=== PATIENT | male | born 1960 | race Caucasian/White ===

== ENCOUNTER 2017-05-08 15:36 | Outpatient (POV) | payer BC, SELFPAY | END 2017-05-08 16:43 | disposition home or self-care (01) | PROVIDERS: Visit Provider Podiatrist ==

== ENCOUNTER → 2017-05-09 | Outpatient (POV) | payer BC, SELFPAY | PROVIDERS: Visit Provider Podiatrist | DX: I73.9 Peripheral vascular disease, unspecified (principal); M25.571 Pain in right ankle and joints of right foot; E11.8 Type 2 diabetes mellitus with unspecified complications; L89.519 Pressure ulcer of right ankle, unspecified stage | CPT/HCPCS: 99213; 11042 ==

== ENCOUNTER → 2018-04-06 14:15 | Outpatient (CLI) | payer BC, SELFPAY ==
--- NOTE | 2018-04-06 14:19 | US_ITS ---
US scrotum Ordering Physician: Margy Ang MD Patient Age: 57 years: Male HISTORY: ITS.REASON: ACQUIRED HYDROCELE . Swelling enlargement right hemiscrotum more so than left TECHNIQUE: Ultrasound both right and left testicle & hemiscrotum MW COMPARISON :None relevant FINDINGS The Right and Left Testicle appear normal, with normal flow and no mass at either testicle Right testicle measuring 3.8 seem in length of 2.45 cm x 2.3 cm. The left testicle measuring 4.1 cm length x 3.25 cm x 1.9 cm. Abnormal Right Epididymis.-Abnormal diffusely enlarged with most prominent enlargement at head and tail. Enlarged prominent head epididymis is enlarged measuring over 2 cm cm length x1.8 x 1.5 cm. inhomogeneous echogenicity.. Superior to this there even appears to be abnormal signal continuing through the tubule structure tracking superior to the epididymis, possibly distended spermatic cord. . The body of epididymis is slightly enlarged .. . . prominent focal area of enlargement also seen at enlarged tail of epididymis.. Associated focal 1.6 cm round area with mixed echogenicity mainly solid/semisolid character. I suspect this may reflect an old area of epididymitis or possibly old abscess residual. Understand the patient is not particularly tender here currently. Some form of a old infected Spermatoceles also consideration but less common towards tail of epididymis Left Epididymis The head of the left abdomen epididymis is mildly enlarged as well measuring 1.7 cm x 1.35 cm. Slightly inhomogeneous. The left epididymis body is slightly enlarged the inhomogeneous. Tail unremarkable. Only scant free fluid throughout either testicle. No significant hydrocele IMPRESSION: ...... 1.The Right and Left testicle themselves appear normal 2. findings are most suggestive of Chronic Epididymitis Most Severe & Prominent on Right, more so than left. Right epididymis-Inhomogeneous prominent enlargement head Right Epididymis,. With Enlargement & round focal abnormality also at tail of right epididymis. Less pronounced mildly enlargement body right epididymis.-Suspect appearance reflect recurrent & chronic epididymitis features here. Relative Minimal discomfort or pain currently- per technologist noted; thus may mainly be chronic. . Left epididymis is inhomogeneous & mildly enlarged throughout- most notable enlargement at head left epididymis. Again likely reflecting chronic epididymitis
== END ==
PROVIDERS: PCP Family Medicine; Visit Provider Family Medicine
DX: N43.3 Hydrocele, unspecified (principal)
CPT/HCPCS: 76870

== ENCOUNTER → 2018-09-03 06:05 | Outpatient (CLI) | payer BC, SELFPAY ==
--- NOTE | 2018-09-03 06:09 | CA_ITS ---
PROCEDURE: 2-D M-mode and color Doppler study INDICATIONS FOR THE TEST: Chest painX COPD Heart Murmur Tobacco Smoking PalpitationsX Fatigue Syncope EdemaX HypertensionXDiabetes MellitusX Rheumatic Fever SOB SOUSA Obesity HyperlipidemiaX Family History HD Additional History CAD,CABG,PP,CHRONIC FIB TDS SECONDARY TO RECONSTRUCTION OF STERNUM POST CABG PATIENT INFORMATION HEIGHT: 69 WEIGHT:254 GENDER: Male B/P:148/71 2-D/M-MODE INTERPRETATION: 2-D MEASUREMENTS OBSERVED VALUES IN CMS Right Ventricular Dimension (RVDd) 4.0 Interventricular Septum (Thickness)(IVsd) 1.4 Left Ventricular Internal Dimensions(LVIDd) 3.8 Left Ventricular Posterior Wall (Thickness)(LVPWd) 1.2 Aortic Root 2.8 Aortic Cusp Separation 2.2 Left Atrial Dimensions (LAD) 3.9 2D 1. Left atrium is mildly enlarged, left ventricle is normal size, moderate concentric left ventricular hypertrophy, visually estimated ejection fraction 55% with no regional wall motion abnormality, there is abnormal septal motion. 2. The right atrium and right ventricle are mildly enlarged with normal contractility. There is a pacemaker lead seen in the right ventricle. 3. The aortic valve is thickened and calcified leaflet continue to display mobility. 4. The mitral and tricuspid valve leaflets are minimally thickened. 5. The pulmonic valve is poorly visualized. 6. No significant pericardial effusion noted. DOPPLER INTERROGATION: Doppler interrogation of the aortic, mitral and tricuspid valvular presence of mild mitral and tricuspid regurgitation, tricuspid regurgitation jet velocity is inadequate for calculation of the right ventricular systolic pressure, diastolic parameters are inconclusive. Inferior vena cava is not well visualized CONCLUSION: 1. Mildly enlarged left atrium, normal left ventricular size, moderate concentric left ventricular hypertrophy, visually estimated ejection fraction 55% with no regional wall motion abnormality, there is abnormal septal motion. Diastolic parameters are inconclusive. 2. Mildly enlarged right ventricle with normal contractility. 3. Mild mitral and tricuspid regurgitation 4. No significant pericardial effusion noted.
--- NOTE | 2018-09-03 06:20 | NM_ITS ---
CARDIOLITE SPECT MYOCARDIAL PERFUSION LEXISCAN, REST AND STRESS: History: Coronary artery disease, bypass surgery, obesity, hypertension, diabetes, hyperlipidemia, family history and fatigue Procedure: Patient received 0.4 mg of intravenous Lexiscan, resting heart rate was 70 bpm resting blood pressure 160/87, with Lexiscan maximum heart rate achieved was 74% of the maximum predicted heart rate and a blood pressure was 165/85. With Lexiscan patient complained of shortness of breath Electrocardiogram: Resting electrocardiogram showed the electronically paced rhythm, premature ventricular complex, underlying rhythm is atrial fibrillation. With Lexiscan there is less than 1.[address] segment depression noted from the baseline EKG. The EKG portion of the Lexiscan Myoview is nondiagnostic. Cardiac stress and resting SPECT images: Cardiac stress and resting SPECT images were obtained using technetium 99 Myoview 31.7 mCi stress and 10.7 mCi at rest. Gated SPECT further analysis of segmental wall motion and calculation of the ejection fraction also done. Cardiac stress and resting SPECT images show uniform myocardial activity without segmental perfusion abnormality, computer derived ejection fraction is 54% with no regional wall motion abnormality, right ventricle is mildly enlarged with normal contractility. Conclusion: 1. The EKG portion of the Lexiscan Myoview is nondiagnostic. 2. No Scintigraphic evidence of reversible ischemia, computer derived ejection fraction 54% with no regional wall motion abnormality, right ventricle is mildly enlarged with normal contractility. 3. Normal Lexiscan Myoview study.
--- NOTE | 2018-09-03 09:28 | HMH.ITSHM ---
Current Home Medications as stated by this patient Cal Bains or traveling representative. []ALLOPURINOL AMLODIPINE ATORVASTATIN CARVEDILOL LAVIX CAMBIVENT FENOFIBRATE GABAPENTIN HYDROCODONE LISINOPRIL NITRO TRIAMTERENE HCTZ INSULIN XARELTO ASPIRIN
== END ==
PROVIDERS: PCP Family Medicine; Visit Provider Internal Medicine
DX: I25.10 Atherosclerotic heart disease of native coronary artery without angina pectoris (principal); E11.9 Type 2 diabetes mellitus without complications; E78.5 Hyperlipidemia, unspecified; I11.9 Hypertensive heart disease without heart failure; I48.91 Unspecified atrial fibrillation; Z95.0 Presence of cardiac pacemaker; Z95.1 Presence of aortocoronary bypass graft; Z95.5 Presence of coronary angioplasty implant and graft
CPT/HCPCS: 78452; 93017; 93306; A9502; J2785

== ENCOUNTER 2018-09-04 12:39 | Inpatient (IN) ==
[2018-09-04 15:06] LABS: Basophils % 0.5 % (0.1-2.0); Eosinophils # 0.1 K/mm3 (0.0-0.4); Eosinophils % 0.8 % (0.1-12.0); Hematocrit 45.7 % (42.0-52.0); Hemoglobin 14.6 g/dL (14.1-18.0); Lymphocytes # 1.3 K/mm3 (0.7-4.5); Lymphocytes % 16.1 % (10-50); Mean Corpuscular Hemoglobin 31.4 pg (27.0-31.2); Mean Corpuscular Volume 97.9 fl (80-94); Mean Platelet Volume 7.4 fl (7.4-10.4); Monocytes # 0.5 K/mm3 (0.1-1.0); Monocytes % 5.6 % (1.7-9.3); Neutrophils # 6.4 K/mm3 (1.8-7.8); Platelet Count 187 K/mm3 (142-424); Red Blood Count 4.67 M/mm3 (4.60-6.20); White Blood Count 8.3 K/mm3 (4.8-10.8)
[2018-09-04 15:15] LABS: Albumin Level 3.3 gm/dL (3.4-5.0); Albumin/Globulin Ratio 0.8 (1.1-1.8); Anion Gap 14.3 mEq/L (5-15); Bilirubin,Total 0.5 mg/dL (0.2-1.0); Calcium 8.9 mg/dL (8.5-10.1); Potassium 4.3 mmoL/L (3.5-5.1); Total Protein,Serum 7.3 gm/dL (6.4-8.2)
--- NOTE | 2018-09-04 15:20 | Progress Note ---
Internal Medicine - PN: Subj *Date: 09/04/18 *Time: 15:17 Interval history: See H&P from [facility]. Admitted with abdominal pain, distention, diarrhea. Exam Vital signs and Labs for Last 24 Hours: Temp Pulse Resp BP Pulse Ox 97.7 F 67 18 143/68 H 96 09/04/18 14:21 09/04/18 14:21 09/04/18 14:21 09/04/18 14:21 09/04/18 14:21 Laboratory Results - last 24 hr 09/04/18 14:30: WBC 8.3, RBC 4.67, Hgb 14.6, Hct 45.7, MCV 97.9 H, MCH 31.4 H, MCHC 32.0, RDW 15.0, Plt Count 187, MPV 7.4, Neut % (Auto) 77.0, Lymph % (Auto) 16.1, [place] % (Auto) 5.6, Eos % (Auto) 0.8, Baso % (Auto) 0.5, Neut # (Auto) 6.4, Lymph # (Auto) 1.3, [place] # (Auto) 0.5, Eos # (Auto) 0.1, Baso # (Auto) 0.0 09/04/18 14:30: Sodium 140, Potassium 4.3, Chloride 104, Carbon Dioxide 26, Anion Gap 14.3, BUN 23 H, Creatinine 1.49 H, Estimated Creat Clear 88, Estimated GFR 48 L, Est GFR ( Amer) 58 L, Glucose 319 H, Calcium 8.9, Total Bilirubin 0.5, AST 27, ALT 37, Alkaline Phosphatase 84, Total Protein 7.3, Albumin 3.3 L, Globulin 4.0 H, Albumin/Globulin Ratio 0.8 L I & O for Last 24 hours: Intake & Output 09/02/18 09/03/18 09/04/18 09/05/18 11:59 11:59 11:59 11:59 Weight 259 lb 6 oz - Routine Chest/Breast/Axilla Exam Chest wall: Present: pacemaker Breast: Present: scars - *Routine Respiratory Exam Present: decreased breath sounds, rhonchi - *Routine Cardiovascular Exam Present: RRR (pacemaker) - *Routine Extremities Exam Present: edema (trace) - *Routine Neurological Exam Present: alert, oriented X3 Assessment and Plan (1) Abdominal pain Current visit: Yes Status: Acute Category: Medical Code(s): R10.9 - Unspecified abdominal pain (2) Diarrhea Current visit: Yes Status: Acute Category: Medical Code(s): R19.7 - Diarrhea, unspecified (3) Colitis Current visit: Yes Status: Acute Category: Medical Code(s): K52.9 - Noninfective gastroenteritis and colitis, unspecified (4) Coronary arteriosclerosis Current visit: No Status: Chronic Category: Medical Code(s): I25.10 - Atherosclerotic heart disease of [place] coronary artery without angina pectoris (5) Diabetes mellitus Current visit: No Status: Chronic Qualifiers: Category: Medical Code(s): E11.9 - Type 2 diabetes mellitus without complications (6) Hyperlipidemia Current visit: No Status: Chronic Qualifiers: Category: Medical Code(s): E78.5 - Hyperlipidemia, unspecified (7) Hypertensive heart disease without heart failure Current visit: No Status: Chronic Category: Medical Code(s): I11.9 - Hypertensive heart disease without heart failure (8) Stented coronary artery Current visit: No Status: Chronic Category: Surgical Code(s): Z95.5 - Presence of coronary angioplasty implant and graft
--- NOTE | 2018-09-04 15:55 | Pharmacy Consult Notes ---
[facility] Pharmacy VTE Monitoring - Patient Demographics Admission date: 09/04/18 Report Date: 09/04/18 Time: 15:55 Allergies/Adverse Reactions: Patient Allergies metformin Allergy (Severe, Verified 08/18/18 11:08) QUIT BREATHING Penicillins Allergy (Intermediate, Verified 09/04/18 14:45) Hives Height: 1.75 m Weight: 117.651 kg Patient Problems: Current Active Problems Abdominal pain (Acute) Diarrhea (Acute) Colitis (Acute) - VTE Risk Labs: VTE Related Lab Results Hgb 14.6 g/dL (14.1-18.0) 09/04/18 14:30 Hct 45.7 % (42.0-52.0) 09/04/18 14:30 Plt Count 187 K/mm3 (142-424) 09/04/18 14:30 BUN 23 mg/dL (7-18) H 09/04/18 14:30 Creatinine 1.49 mg/dL (0.70-1.30) H 09/04/18 14:30 Estimated Creat Clear 88 mL/min (50-200) 09/04/18 14:30 Was VTE Risk Assessment Performed: Yes VTE Score: 3 VTE Risk Level: Low Risk - Prophylaxis VTE Prophylaxis Ordered?: Yes Types of VTE Prophylaxis: Pharmacological Pharmacologic Type: Other (XARELTO)
--- NOTE | 2018-09-05 10:30 | Progress Note ---
Internal Medicine - PN: Subj *Date: 09/05/18 *Time: 10:27 Interval history: He is feeling better though he still has discomfort in the right lower quadrant. He is tolerating liquids. He slept well last night. He asks about pain medication. The CT did show diverticulitis and colitis. Colonoscopy will be indicated when stable. See labs. Exam Vital signs and Labs for Last 24 Hours: Temp Pulse Resp BP Pulse Ox 97.8 F 70 18 120/82 97 09/05/18 08:00 09/05/18 08:00 09/05/18 08:00 09/05/18 08:00 09/05/18 08:00 Laboratory Results - last 24 hr 09/04/18 14:30: WBC 8.3, RBC 4.67, Hgb 14.6, Hct 45.7, MCV 97.9 H, MCH 31.4 H, MCHC 32.0, RDW 15.0, Plt Count 187, MPV 7.4, Neut % (Auto) 77.0, Lymph % (Auto) 16.1, [place] % (Auto) 5.6, Eos % (Auto) 0.8, Baso % (Auto) 0.5, Neut # (Auto) 6.4, Lymph # (Auto) 1.3, [place] # (Auto) 0.5, Eos # (Auto) 0.1, Baso # (Auto) 0.0 09/04/18 14:30: Sodium 140, Potassium 4.3, Chloride 104, Carbon Dioxide 26, Anion Gap 14.3, BUN 23 H, Creatinine 1.49 H, Estimated Creat Clear 88, Estimated GFR 48 L, Est GFR ( Amer) 58 L, Glucose 319 H, Calcium 8.9, Total Bilirubin 0.5, AST 27, ALT 37, Alkaline Phosphatase 84, Total Protein 7.3, Albumin 3.3 L, Globulin 4.0 H, Albumin/Globulin Ratio 0.8 L 09/04/18 17:05: POC Glucose 286 H 09/04/18 20:28: POC Glucose 303 H* 09/05/18 06:10: POC Glucose 250 H 09/05/18 08:58: POC Glucose 328 H* I & O for Last 24 hours: Intake & Output 09/02/18 09/03/18 09/04/18 09/05/18 11:59 11:59 11:59 11:59 Intake Total 2190 Balance 2190 Weight 259 lb 6 oz - Constitutional no acute distress - *Routine Respiratory Exam Present: decreased breath sounds, CTA bilaterally - *Routine Cardiovascular Exam Present: RRR ((Paced )) - *Routine Abdominal Exam Present: soft, tenderness (Less tender in the right lower quadrant) - *Routine Extremities Exam Present: edema Assessment and Plan (1) Diverticulitis Current visit: Yes Status: Acute Category: Medical Code(s): K57.92 - Diverticulitis of intestine, part unspecified, without perforation or abscess without bleeding (2) Abdominal pain Current visit: Yes Status: Acute Category: Medical Code(s): R10.9 - Unspecified abdominal pain (3) Diarrhea Current visit: Yes Status: Acute Category: Medical Code(s): R19.7 - Diarrhea, unspecified (4) Colitis Current visit: Yes Status: Acute Category: Medical Code(s): K52.9 - Noninfective gastroenteritis and colitis, unspecified (5) Coronary arteriosclerosis Current visit: No Status: Chronic Category: Medical Code(s): I25.10 - At herosclerotic heart disease of [place] coronary artery without angina pectoris (6) Diabetes mellitus Current visit: No Status: Chronic Qualifiers: Category: Medical Code(s): E11.9 - Type 2 diabetes mellitus without complications (7) Hyperlipidemia Current visit: No Status: Chronic Qualifiers: Category: Medical Code(s): E78.5 - Hyperlipidemia, unspecified (8) Hypertensive heart disease without heart failure Current visit: No Status: Chronic Category: Medical Code(s): I11.9 - Hypertensive heart disease without heart failure (9) Stented coronary artery Current visit: No Status: Chronic Category: Surgical Code(s): Z95.5 - Presence of coronary angioplasty implant and graft - Assessment and plan all Dx Assessment and Plan for all problems:: Continue present regimen. Scheduled hydrocodone APAP ordered
[2018-09-06 06:06] LABS: Basophils % 0.8 % (0.1-2.0); Eosinophils # 0.1 K/mm3 (0.0-0.4); Eosinophils % 2.2 % (0.1-12.0); Hematocrit 42.5 % (42.0-52.0); Hemoglobin 13.7 g/dL (14.1-18.0); Lymphocytes # 1.2 K/mm3 (0.7-4.5); Lymphocytes % 25.4 % (10-50); Mean Corpuscular HGB Conc 32.2 g/dL (31.8-35.4); Mean Corpuscular Hemoglobin 31.4 pg (27.0-31.2); Mean Corpuscular Volume 97.8 fl (80-94); Mean Platelet Volume 7.9 fl (7.4-10.4); Monocytes # 0.4 K/mm3 (0.1-1.0); Monocytes % 8.3 % (1.7-9.3); Neutrophils # 3.1 K/mm3 (1.8-7.8); Neutrophils % 63.3 % (37.0-80.0); Platelet Count 159 K/mm3 (142-424); Red Blood Count 4.35 M/mm3 (4.60-6.20); White Blood Count 4.9 K/mm3 (4.8-10.8)
[2018-09-06 06:13] LABS: Anion Gap 13.2 mEq/L (5-15); Calcium 8.4 mg/dL (8.5-10.1); Potassium 4.2 mmoL/L (3.5-5.1)
--- NOTE | 2018-09-06 15:53 | Progress Note ---
Internal Medicine - PN: Subj *Date: 09/06/18 *Time: 15:50 Interval history: He has only had 3 loose diarrhea stools today. He states that he feels better. He would like to eat more but is on a full liquid diet. He feels that his right lower quadrant tenderness is decreased but still present. His PCR diarrhea panel was negative. Exam Vital signs and Labs for Last 24 Hours: Temp Pulse Resp BP Pulse Ox 97.8 F 70 20 135/80 98 09/06/18 15:48 09/06/18 15:48 09/06/18 15:48 09/06/18 15:48 09/06/18 15:48 Laboratory Results - last 24 hr 09/05/18 16:06: POC Glucose 143 H 09/05/18 20:19: POC Glucose 253 H 09/06/18 05:50: WBC 4.9 D, RBC 4.35 L, Hgb 13.7 L, Hct 42.5, MCV 97.8 H, MCH 31.4 H, MCHC 32.2, RDW 15.0, Plt Count 159, MPV 7.9, Neut % (Auto) 63.3, Lymph % (Auto) 25.4, [place] % (Auto) 8.3, Eos % (Auto) 2.2, Baso % (Auto) 0.8, Neut # (Auto) 3.1, Lymph # (Auto) 1.2, [place] # (Auto) 0.4, Eos # (Auto) 0.1, Baso # (Auto) 0.0 09/06/18 05:50: Sodium 142, Potassium 4.2, Chloride 107, Carbon Dioxide 26, Anion Gap 13.2, BUN 15 D, Creatinine 1.27, Estimated Creat Clear 103, Estimated GFR 58 L, Est GFR ( Amer) 70 D, Glucose 190 H, Calcium 8.4 L 09/06/18 05:55: POC Glucose 188 H I & O for Last 24 hours: Intake & Output 09/04/18 09/05/18 09/06/18 09/07/18 11:59 11:59 11:59 11:59 Intake Total 2391 / 2391 2300 / 2300 1000 / 1000 Balance 2391 / 2391 2300 / 2300 1000 / 1000 Weight 259 lb 6 oz Microbiology Reports for the Last 24 Hours: Microbiology 09/04/18 15:21 Blood Blood Culture - Preliminary NO GROWTH AFTER 48 HOURS 09/04/18 15:26 Blood Blood Culture - Preliminary NO GROWTH AFTER 48 HOURS - Constitutional no acute distress - *Routine Respiratory Exam Present: decreased breath sounds - *Routine Cardiovascular Exam Present: RRR - *Routine Abdominal Exam Present: tenderness (He is less tender in right lower quadrant), distended - *Routine Extremities Exam Absent: edema (Perhaps trace) - *Routine Neurological Exam Present: alert, oriented X3 Assessment and Plan (1) Diverticulitis Current visit: Yes Status: Acute Category: Medical Code(s): K57.92 - Diverticulitis of intestine, part unspecified, without perforation or abscess without bleeding (2) Abdominal pain Current visit: Yes Status: Acute Category: Medical Code(s): R10.9 - Unspecified abdominal pain (3) Diarrhea Current visit: Yes Status: Acute Category: Medical Code(s): R19.7 - Diarrhea, unspecified (4) Colitis Current visit: Yes Status: Acute Category: Medical Code(s): K52.9 - Noninfective gastroenteritis and colitis, unspecified (5) Coronary arteriosclerosis Current visit: No Status: Chronic Category: Medical Code(s): I25.10 - Atherosclerotic heart disease of [place] coronary artery without angina pectoris (6) Diabetes mellitus Current visit: No Status: Chronic Qualifiers: Category: Medical Code(s): E11.9 - Type 2 diabetes mellitus without complications (7) Hyperlipidemia Current visit: No Status: Chronic Qualifiers: Category: Medical Code(s): E78.5 - Hyperlipidemia, unspecified (8) Hypertensive heart disease without heart failure Current visit: No Status: Chronic Category: Medical Code(s): I11.9 - Hypertensive heart disease without heart failure (9) Stented coronary artery Current visit: No Status: Chronic Category: Surgical Code(s): Z95.5 - Presence of coronary angioplasty implant and graft The patient's infection will respond to the chosen ABx?: Yes Is the patient receiving the right drug, dose, and route?: Yes Could a more targeted ABx be ordered?: No (PCR was negative but I feel that the current antibiotics should continue)
--- NOTE | 2018-09-07 07:30 | Progress Note ---
Internal Medicine - PN: Subj *Date: 09/07/18 *Time: 07:30 Exam Vital signs and Labs for Last 24 Hours: Temp Pulse Resp BP Pulse Ox 98.0 F 71 18 130/82 98 09/07/18 04:00 09/07/18 04:00 09/07/18 04:00 09/07/18 04:00 09/07/18 04:00 Laboratory Results - last 24 hr 09/06/18 05:50: Hemoglobin A1c 9.9 H 09/06/18 11:44: POC Glucose 311 H* 09/06/18 17:35: POC Glucose 100 09/06/18 21:05: POC Glucose 162 H 09/07/18 05:57: POC Glucose 139 H I & O for Last 24 hours: Intake & Output 09/04/18 09/05/18 09/06/18 09/07/18 23:59 23:59 23:59 23:59 Intake Total 200 / 200 3591 / 3591 3060 / 3060 Balance 200 / 200 3591 / 3591 3060 / 3060 Weight 117.651 kg Microbiology Reports for the Last 24 Hours: Microbiology 09/04/18 15:21 Blood Blood Culture - Preliminary NO GROWTH AFTER 48 HOURS 09/04/18 15:26 Blood Blood Culture - Preliminary NO GROWTH AFTER 48 HOURS Assessment and Plan (1) Diverticulitis Current visit: Yes Status: Acute Category: Medical Code(s): K57.92 - Diverticulitis of intestine, part unspecified, without perforation or abscess without bleeding (2) Abdominal pain Current visit: Yes Status: Acute Category: Medical Code(s): R10.9 - Unspecified abdominal pain (3) Diarrhea Current visit: Yes Status: Acute Category: Medical Code(s): R19.7 - Diarrhea, unspecified (4) Colitis Current visit: Yes Status: Acute Category: Medical Code(s): K52.9 - Noninfective gastroenteritis and colitis, unspecified (5) Coronary arteriosclerosis Current visit: No Status: Chronic Category: Medical Code(s): I25.10 - Atherosclerotic heart disease of [place] coronary artery without angina pectoris (6) Diabetes mellitus Current visit: No Status: Chronic Qualifiers: Category: Medical Code(s): E11.9 - Type 2 diabetes mellitus without complications (7) Hyperlipidemia Current visit: No Status: Chronic Qualifiers: Category: Medical Code(s): E78.5 - Hyperlipidemia, unspecified (8) Hypertensive heart disease without heart failure Current visit: No Status: Chronic Category: Medical Code(s): I11.9 - Hypertensive heart disease without heart failure (9) Stented coronary artery Current visit: No Status: Chronic Category: Surgical Code(s): Z95.5 - Presence of coronary angioplasty implant and graft The patient's infection will respond to the chosen ABx?: Yes Is the patient receiving the right drug, dose, and route?: Yes Could a more targeted ABx be ordered?: No
--- NOTE | 2018-09-07 08:05 | Progress Note ---
Internal Medicine - PN: Subj *Date: 09/07/18 *Time: 08:01 Interval history: Doing much better. Did sleep last night. Last pain pill was around 9 PM last night. Thinks he might go home today. Has been taking full liquids without any problem. Has had diarrhea stools. Point tenderness in right lower abdominal quadrant. Ambulates in the room without difficulty. Exam Vital signs and Labs for Last 24 Hours: Temp Pulse Resp BP Pulse Ox 98.0 F 71 18 130/82 98 09/07/18 04:00 09/07/18 04:00 09/07/18 04:00 09/07/18 04:00 09/07/18 04:00 Laboratory Results - last 24 hr 09/06/18 05:50: Hemoglobin A1c 9.9 H 09/06/18 11:44: POC Glucose 311 H* 09/06/18 17:35: POC Glucose 100 09/06/18 21:05: POC Glucose 162 H 09/07/18 05:57: POC Glucose 139 H I & O for Last 24 hours: Intake & Output 09/04/18 09/05/18 09/06/18 09/07/18 11:59 11:59 11:59 11:59 Intake Total 2391 / 2391 2400 / 2400 2059 Balance 2391 / 2391 2400 / 2400 2059 Weight 259 lb 6 oz Microbiology Reports for the Last 24 Hours: Microbiology 09/04/18 15:21 Blood Blood Culture - Preliminary NO GROWTH AFTER 48 HOURS 09/04/18 15:26 Blood Blood Culture - Preliminary NO GROWTH AFTER 48 HOURS - Constitutional no acute distress Comments: Sitting on the bedside talking with his . Appears comfortable. - *Routine Respiratory Exam Present: CTA bilaterally (Anteriorly and posteriorly) - *Routine Cardiovascular Exam Present: RRR - *Routine Abdominal Exam Present: soft, normoactive bowel sounds Comments: Point tenderness in right lower quadrant - *Routine Extremities Exam Absent: edema, calf tenderness - *Routine Neurological Exam Present: alert, oriented X3 Assessment and Plan (1) Diverticulitis Current visit: Yes Status: Acute Category: Medical Code(s): K57.92 - Diverticulitis of intestine, part unspecified, without perforation or abscess without bleeding (2) Abdominal pain Current visit: Yes Status: Acute Category: Medical Code(s): R10.9 - Unspecified abdominal pain (3) Diarrhea Current visit: Yes Status: Acute Category: Medical Code(s): R19.7 - Diarrhea, unspecified (4) Colitis Current visit: Yes Status: Acute Category: Medical Code(s): K52.9 - Noninfective gastroenteritis and colitis, unspecified (5) Coronary arteriosclerosis Current visit: No Status: Chronic Category: Medical Code(s): I25.10 - Atherosclerotic heart disease of [place] coronary artery without angina pectoris (6) Diabetes mellitus Current visit: No Status: Chronic Qualifiers: Category: Medical Code(s): E11.9 - Type 2 diabetes mellitus without complications (7) Hyperlipidemia Current visit: No Status: Chronic Qualifiers: Category: Medical Code(s): E78.5 - Hyperlipidemia, unspecified (8) Hypertensive heart disease without heart failure Current visit: No Status: Chronic Category: Medical Code(s): I11.9 - Hy pertensive heart disease without heart failure (9) Stented coronary artery Current visit: No Status: Chronic Category: Surgical Code(s): Z95.5 - Presence of coronary angioplasty implant and graft - Assessment and plan all Dx Assessment and Plan for all problems:: Probable discharge home today. Discussed diet for enteritis and diverticulitis.
--- NOTE | 2018-09-08 13:36 | Discharge Summary ---
General - General Admission date:: 09/04/18 HPI HPI: Mr. Bains is a 58-year-old male who presented to the office of [facility] with abdominal pain on both sides of his abdomen that had been present for 1 week. There was no relation to food. He stated the pain was worse with movement and he had some loose stools. He was having some gas and he denied any vomiting. He was felt to have a diverticulitis therefore he was admitted to the hospital for further evaluation and treatment. Hospital Course Hospital Course: The patient was admitted and started on IV antibiotics. A CT was ordered and revealed a redundant colon on the right with evidence of diverticulosis and diverticulitis as well as colitis. The patient's white blood cell count in the hospital was not elevated, however his BUN and creatinine were elevated. He was started on IV antibiotics. The patient tolerated a clear liquid diet. It was felt he would need a colonoscopy when his diverticulitis and colitis resolved. The patient's abdominal pain did improve. He had a PCR diarrhea panel done which was negative. His diet was advanced to full liquids and he had no problems. His abdominal pain improved greatly and he was able to ambulate around the room without difficulty. He was stable to be discharged home and will need to follow-up in the office of [facility]. Objective Vital signs: Temp Pulse Resp BP Pulse Ox 98.4 F 71 20 155/88 H 96 09/07/18 08:00 09/07/18 08:00 09/07/18 08:00 09/07/18 08:00 09/07/18 08:00 Narrative: General: NAD HEENT: Facial rubor Oral cavity: No lesions, mucosa moist and within normal limits, no erythema Neck: Supple, no lymphadenopathy Chest: Midline scar of the chest, pacemaker battery in place Heart : regular sinus rhythm Lungs: Clear to auscultation Abdomen: Obese, distended, hyperactive bowel sounds, no organomegaly or masses Neurologic exam: Intact, gait normal Skin: Normal, no rash Back: Mild dorsal kyphosis Extremities: Trace leg edema Results Labs on day of discharge: Preliminary micro results at discharge 09/04/18 15:21 Blood Culture - Preliminary Blood NO GROWTH AFTER 48 HOURS 09/04/18 15:26 Blood Culture - Preliminary Blood NO GROWTH AFTER 48 HOURS DS: Diagnosis - Discharge Diagnosis (1) Diverticulitis Status: Acute (2) Abdominal pain Status: Acute (3) Diarrhea Status: Acute (4) Colitis Status: Acute (5) Coronary arteriosclerosis Status: Chronic (6) Diabetes mellitus Status: Chronic (7) Hyperlipidemia Status: Chronic (8) Hypertensive heart disease without heart failure Status: Chronic (9) Stented coronary artery Status: Chronic Discharge Plan - Patient Discharge Instructions ACTIVITY: Limited activity DIET: low fat, low cholesterol - Follow up Plan Follow up with: Margy Ang MD [Primary Care Provider] - 09/11/18 Disposition: Home, Self-[facility] Medications: Home Medications Medication Instructions Recorded Confirmed Type atorvastatin 40 mg tablet 40 mg PO HS tab 08/18/17 09/08/18 History fenofibrate nanocrystallized 145 145 mg PO DAILY tab 08/18/17 09/08/18 History mg tablet ipratropium 20 mcg-albuterol 100 1 puff INHALATION QID PRN 08/18/17 09/08/18 History mcg/actuation mist for inhalation lisinopril 40 mg tablet 40 mg PO DAILY tab 08/18/17 09/08/18 History nitroglycerin 0.4 mg sublingual 0.4 mg SUBLINGUAL Q5M PRN 08/18/17 09/08/18 History tablet triamterene 75 1 tab PO DAILY 08/18/17 09/08/18 History mg-hydrochlorothiazide 50 mg tablet Carvedilol [Carvedilol 25mg Tab] 50 mg PO BID 12/28/17 09/08/18 History Rivaroxaban [Xarelto 20mg Tablet] 20 mg PO QPM 12/28/17 09/08/18 History Allopurinol [Allopurinol 300mg 300 mg PO DAILY 09/04/18 09/08/18 History tablet] Amlodipine Besylate 10 mg PO DAILY 09/04/18 09/08/18 History Gabapentin [Gabapentin 300mg Cap] 600 mg PO HS 09/04/18 09/08/18 History Hydrocodone/Acetaminophen 1 each PO TIDP PRN 09/04/18 09/08/18 History [Hydrocodone-Acetamin 7.5-325] Insulin Regular, Human [Humulin R 115 unit SQ BID 09/04/18 09/08/18 History U-500] levoFLOXacin [Levaquin 500mg 500 mg PO DAILY #5 tab 09/07/18 09/08/18 Rx tab] metroNIDAZOLE [metroNIDAZOLE 500mg 500 mg PO TID #20 tab 09/07/18 09/08/18 Rx Tablet] amlodipine 5 mg tablet 5 mg PO DAILY #30 tab 09/08/18 09/08/18 Rx clopidogrel 75 mg tablet 75 mg PO DAILY #30 tab 09/08/18 09/08/18 Rx Prescriptions/Medication Reconciliation: New levoFLOXacin [Levaquin 500mg tab] 500 mg PO DAILY #5 tab metroNIDAZOLE [metroNIDAZOLE 500mg Tablet] 500 mg PO TID #20 tab Continue atorvastatin 40 mg tablet 40 mg PO HS tab ipratropium 20 mcg-albuterol 100 mcg/actuation mist for inhalation 1 puff INHALATION QID PRN PRN Reason: bronchitis fenofibrate nanocrystallized 145 mg tablet 145 mg PO DAILY tab lisinopril 40 mg tablet 40 mg PO DAILY tab nitroglycerin 0.4 mg sublingual tablet 0.4 mg SUBLINGUAL Q5M PRN PRN Reason: Chest Pain triamterene 75 mg-hydrochlorothiazide 50 mg tablet 1 tab PO DAILY Rivaroxaban [Xarelto 20mg Tablet] 20 mg PO QPM Carvedilol [Carvedilol 25mg Tab] 50 mg PO BID Insulin Regular, Human [Humulin R U-500] 115 unit SQ BID Hydrocodone/Acetaminophen [Hydrocodone-Acetamin 7.5-325] 1 each PO TIDP PRN PRN Reason: PAIN Allopurinol [Allopurinol 300mg tablet] 300 mg PO DAILY Gabapentin [Gabapentin 300mg Cap] 600 mg PO HS Amlodipine Besylate 10 mg PO DAILY Discontinued clopidogrel 75 mg tablet 75 mg PO DAILY tab No Action clopidogrel 75 mg tablet 75 mg PO DAILY #30 tab amlodipine 5 mg tablet 5 mg PO DAILY #30 tab
== END 2018-09-07 11:37 | disposition home or self-care (01) | DRG 392 ==
LOC: 2ND → OBSVTOIN 13:58
PROVIDERS: ADMIT Family Medicine; ATTEND Family Medicine
CPT/HCPCS: 36415; 74176; 80048; 80053; 82962; 83036; 85025; 87040; 87506; 94640; J1956

== ENCOUNTER → 2019-01-19 06:17 | Outpatient (CLI) | payer BC, SELFPAY ==
--- NOTE | 2019-01-19 06:57 | CT_ITS ---
PROCEDURE: CT LUNG SCREENING CLINICAL INDICATION: HX TOBACCO USE COMPARISON: LDCTLCAS LDCT FOR LUNG CA SCREEN from 11/01/2016 CT ABDOMEN PELVIS WO/W CON from 01/19/2019 TECHNIQUE: The exam was performed on a GE Light Speed [address] scanner using 2.90 mGy CTDI. A low dose helical CT CHEST was performed on a multi-detector scanner. All CT scans at the facility use one or more dose reduction, viz: automated exposure control, ma/kV adjustment per patient size (including targeted exams where dose is matched to indication, i.e. head), or iterative reconstruction technique. The LDCT was performed in a facility that meets the criteria for the screening program. Data regarding this exam was submitted to ACR which is an approved registry. The order for this exam indicates that it came as a result of a lung cancer screening counseling shard decision-making visit that included all the elements required of such a visit including smoking cessation. The radiologist interpreting this exam meets the CMS criteria for the LDCT lung cancer screening program. The exam is reported using the Lung-RADS classification scale and reported to the ACR registry. NOTE: This study was performed for the specific purposes of lung cancer screening and is not an alternative to diagnostic chest CT. RADIATION DOSE: CTDI vol(CT dose Index-volume) = 2.90mG DLP (Dose Length Product) = 107.33 mGcm FINDINGS: There are numerous pulmonary nodules which have developed in the interval. These nodules ovarian sized in range in size from a few mm up to 14 mm. No effusions. No central obstructing lesions. COPD. Coronary artery calcifications OTHER FINDINGS: There thickening of the distal esophagus with increased density surrounding the distal esophagus and scattered small lymph nodes in the periesophageal region. These findings are worrisome for carcinoma of the esophagus with local adenopathy and metastatic disease to the lungs in addition, there are varying sized isodense lesions of the liver best detected on the abdomen CT with contrast performed on 01/19/2019.. 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
--- NOTE | 2019-01-19 06:58 | CT_ITS ---
PROCEDURE: CT ABDOMEN PELVIS WO/W CON CLINICAL INDICATION: DIVERTICULITIS, WGT LOSS,ABNORMAL CT , Left upper quadrant pain, left lower quadrant pain, diverticulitis COMPARISON: LDCTLCAS [facility]CT [facility]G [facility]CREEN [facility] [facility] wo con from 09/04/2018 CT LUNG SCREENING from 01/19/2019 TECHNIQUE: IV Contrast: 75ML OPTIRAY 350 Oral Contrast 450ml Redicat Axial images obtained with sagittal and coronal reformats. All CT scans at the facility use one or more dose reduction, viz: automated exposure control, ma/kV adjustment per patient size (including targeted exams where dose is matched to indication, i.e. head), or iterative reconstruction technique. FINDINGS: There are multiple noncalcified nodules in the lower lobe suspicious for metastatic disease. These were not present on 09/04/2018. There are coronary artery calcifications.. There are multiple ill-defined areas of slight decreased density within the liver which are suspicious for metastatic foci. These are not well delineated and may be better evaluated with ultrasound or MRI especially if any biopsy is contemplated. There is a small hiatal hernia with mild thickening of the distal esophagus. The spleen pancreas and adrenal glands and kidneys have an unremarkable appearance. There are few scattered small retroperitoneal lymph nodes. Unremarkable appendix. No intestinal obstruction or free air. There is diverticulosis of the colon but no evidence of diverticulitis. There is redundancy of the sigmoid colon. The prostate is enlarged Total left hip prosthesis has been placed. No acute bony findings. IMPRESSION: 1. Numerous noncalcified bilateral lower lobe pulmonary nodules which have developed since the previous exam suspicious for metastatic foci 2. Multiple of defined hypoattenuating areas of the liver also suspicious for metastatic disease. Ultrasound or MRI may confirm. These are not well circumscribed. 3. Extensive colonic diverticulosis. No evidence of diverticulitis. Dictated by: Flash Long MD 01/20/2019 07:00 Signed by: <Electronically signed by Flash Long MD in [place]> 01/20/2019 07:00
== END ==
PROVIDERS: PCP Family Medicine; Visit Provider Family Medicine
DX: Z87.891 Personal history of nicotine dependence (principal); Z12.2 Encounter for screening for malignant neoplasm of respiratory organs; K57.92 Diverticulitis of intestine, part unspecified, without perforation or abscess without bleeding; R63.4 Abnormal weight loss; R93.5 Abnormal findings on diagnostic imaging of other abdominal regions, including retroperitoneum
CPT/HCPCS: 74178; Q9967

== ENCOUNTER → 2019-01-19 07:18 | Outpatient (CLI) | payer BC, SELFPAY ==
[2019-01-19 07:51] LABS: Blood Urea Nitrogen 17 mg/dL (7-18); Creatinine,Serum 1.34 mg/dL (0.70-1.30); Estimated Glomerular Filt Rate 54 ml/min (>60); GFR (African American) 66 ML/MIN (>60)
== END ==
PROVIDERS: Visit Provider Family Medicine
DX: Z01.818 Encounter for other preprocedural examination (principal)
CPT/HCPCS: 36415; 82565; 84520

== ENCOUNTER 2019-01-22 15:36 | Inpatient (IN) ==
--- NOTE | 2019-01-22 15:45 | Progress Note ---
Internal Medicine - PN: Subj *Date: 01/22/19 *Time: 15:40 Interval history: See H&P from [facility]. Admitted with left sided abdominal pain. Hx of diverticulitis in August 2018. Also with abnormal lesions of the lung and liver on 01/20/2019 CT. Assessment and Plan (1) Diverticulitis Current visit: No Status: Acute Category: Medical Code(s): K57.92 - Diverticulitis of intestine, part unspecified, without perforation or abscess without bleeding (2) Type 2 diabetes mellitus Current visit: Yes Status: Acute Qualifiers: Diabetes mellitus complication status: with circulatory complication Category: Medical Code(s): E11.9 - Type 2 diabetes mellitus without complications (3) Insulin dependent diabetes mellitus Current visit: Yes Status: Acute Category: Medical Code(s): E11.9 - Type 2 diabetes mellitus without complications; Z79.4 - storage management architect (current) use of insulin (4) Abnormal CT of liver Current visit: Yes Status: Acute Category: Medical Code(s): R93.2 - Abn ormal findings on diagnostic imaging of liver and biliary tract (5) Abnormal CT scan of lung Current visit: Yes Status: Acute Category: Medical Code(s): R91.8 - Other nonspecific abnormal finding of lung field (6) Abdominal pain Current visit: No Status: Acute Category: Medical Code(s): R10.9 - Unspecified abdominal pain (7) Cardiac pacemaker in situ Current visit: No Status: Chronic Category: Medical Code(s): Z95.0 - Presence of cardiac pacemaker (8) Coronary arteriosclerosis Current visit: No Status: Chronic Category: Medical Code(s): I25.10 - Atherosclerotic heart disease of [place] coronary artery without angina pectoris - Assessment and plan all Dx Assessment and Plan for all problems:: IV antibiotics. Consults, GI, Pulmonary. Oncology
[2019-01-22 17:35] LABS: Basophils # 0.1 K/mm3 (0-0.2); Basophils % 0.6 % (0.1-2.0); Eosinophils # 0.1 K/mm3 (0.0-0.4); Hematocrit 44.8 % (42.0-52.0); Hemoglobin 13.4 g/dL (14.1-18.0); Lymphocytes # 1.4 K/mm3 (0.7-4.5); Lymphocytes % 12.9 % (10-50); Mean Corpuscular HGB Conc 29.9 g/dL (31.8-35.4); Mean Corpuscular Volume 102.3 fl (80-94); Monocytes # 0.6 K/mm3 (0.1-1.0); Monocytes % 5.8 % (1.7-9.3); Neutrophils # 8.5 K/mm3 (1.8-7.8); Neutrophils % 79.7 % (37.0-80.0); Platelet Count 289 K/mm3 (142-424); Red Blood Count 4.38 M/mm3 (4.60-6.20); Red Cell Distribution Width 15.2 % (11.5-17.5); White Blood Count 10.7 K/mm3 (4.8-10.8)
[2019-01-22 17:44] LABS: Albumin Level 3.1 gm/dL (3.4-5.0); Albumin/Globulin Ratio 0.7 (1.1-1.8); Anion Gap 12.4 mEq/L (5-15); Bilirubin,Total 0.3 mg/dL (0.2-1.0); Calcium 8.9 mg/dL (8.5-10.1); Globulin 4.2 gm/dl (1.3-3.2); Total Protein,Serum 7.3 gm/dL (6.4-8.2)
[2019-01-23 07:40] LABS: Basophils # 0.1 K/mm3 (0-0.2); Basophils % 0.6 % (0.1-2.0); Eosinophils # 0.1 K/mm3 (0.0-0.4); Eosinophils % 1.5 % (0.1-12.0); Hematocrit 42.9 % (42.0-52.0); Hemoglobin 12.7 g/dL (14.1-18.0); Lymphocytes # 1.4 K/mm3 (0.7-4.5); Lymphocytes % 15.9 % (10-50); Mean Corpuscular HGB Conc 29.7 g/dL (31.8-35.4); Mean Corpuscular Volume 102.1 fl (80-94); Mean Platelet Volume 7.6 fl (7.4-10.4); Monocytes # 0.6 K/mm3 (0.1-1.0); Neutrophils # 6.4 K/mm3 (1.8-7.8); Platelet Count 268 K/mm3 (142-424); Red Cell Distribution Width 15.2 % (11.5-17.5); White Blood Count 8.5 K/mm3 (4.8-10.8)
[2019-01-23 07:55] LABS: Albumin Level 2.8 gm/dL (3.4-5.0); Albumin/Globulin Ratio 0.8 (1.1-1.8); Anion Gap 12.2 mEq/L (5-15); Bilirubin,Total 0.3 mg/dL (0.2-1.0); Calcium 8.6 mg/dL (8.5-10.1); Globulin 3.7 gm/dl (1.3-3.2); Total Protein,Serum 6.5 gm/dL (6.4-8.2)
--- NOTE | 2019-01-23 08:27 | Pharmacy Consult Notes ---
[facility] Pharmacy VTE Monitoring - Patient Demographics Admission date: 01/22/19 Report Date: 01/23/19 Time: 08:26 Allergies/Adverse Reactions: Patient Allergies metformin Allergy (Severe, Verified 09/08/18 11:25) QUIT BREATHING Penicillins Allergy (Intermediate, Verified 09/08/18 11:25) Hives Height: 1.75 m Weight: 99.932 kg Patient Problems: Current Active Problems Type 2 diabetes mellitus (Acute) Insulin dependent diabetes mellitus (Acute) Abnormal CT of liver (Acute) Abnormal CT scan of lung (Acute) - VTE Risk Labs: VTE Related Lab Results Hgb 12.7 g/dL (14.1-18.0) L 01/23/19 07:06 Hct 42.9 % (42.0-52.0) 01/23/19 07:06 Plt Count 268 K/mm3 (142-424) 01/23/19 07:06 BUN 21 mg/dL (7-18) H 01/23/19 07:06 Creatinine 1.47 mg/dL (0.70-1.30) H D 01/23/19 07:06 Estimated Creat Clear 76 mL/min (50-200) 01/23/19 07:06 Was VTE Risk Assessment Performed: Yes VTE Score: 3 VTE Risk Level: Low Risk - Prophylaxis VTE Prophylaxis Ordered?: Yes Types of VTE Prophylaxis: Pharmacological Pharmacologic Type: Other (XARELTO)
--- NOTE | 2019-01-23 09:14 | Progress Note ---
Internal Medicine - PN: Subj *Date: 01/23/19 *Time: 09:11 Interval history: He is feeling better. His lab work is improved. He is tolerating the Invanz. He reports difficulty in swallowing over the past several months. The CT in addition to showing the lesions that could be metastatic, show some thickening of the distal esophagus. I suppose he needs an EGD perhaps Friday if it fits with Dr. Reynaga schedule. We will keep him n.p.o. after midnight Friday night. Diet is ordered today. He requests a regular diet but we will chopped his meat. Exam Vital signs and Labs for Last 24 Hours: Temp Pulse Resp BP Pulse Ox 97.8 F 70 16 156/86 H 99 01/23/19 08:00 01/23/19 08:00 01/23/19 08:00 01/23/19 08:00 01/23/19 08:00 Laboratory Results - last 24 hr 01/22/19 17:25: WBC 10.7, RBC 4.38 L, Hgb 13.4 L, Hct 44.8, MCV 102.3 H, MCH 30.6, MCHC 29.9 L, RDW 15.2, Plt Count 289, MPV 8.0, Neut % (Auto) 79.7, Lymph % (Auto) 12.9, [place] % (Auto) 5.8, Eos % (Auto) 1.0, Baso % (Auto) 0.6, Neut # (Auto) 8.5 H, Lymph # (Auto) 1.4, [place] # (Auto) 0.6, Eos # (Auto) 0.1, Baso # (Auto) 0.1 01/22/19 17:25: Sodium 135 L, Potassium 4.4, Chloride 101, Carbon Dioxide 26, Anion Gap 12.4, BUN 22 H, Creatinine 1.86 H, Estimated Creat Clear 59, Estimated GFR 37 L, Est GFR ( Amer) 45 L, Glucose 378 H, Calcium 8.9, Total Bilirubin 0.3, AST 17, ALT 12, Alkaline Phosphatase 143 H, Total Protein 7.3, Albumin 3.1 L, Globulin 4.2 H, Albumin/Globulin Ratio 0.7 L 01/22/19 17:32: POC Glucose 368 H* 01/22/19 20:34: POC Glucose 240 H 01/23/19 05:57: POC Glucose 201 H 01/23/19 07:06: WBC 8.5, RBC 4.20 L, Hgb 12.7 L, Hct 42.9, MCV 102.1 H, MCH 30.3, MCHC 29.7 L, RDW 15.2, Plt Count 268, MPV 7.6, Neut % (Auto) 75.0, Lymph % (Auto) 15.9, [place] % (Auto) 7.0, Eos % (Auto) 1.5, Baso % (Auto) 0.6, Neut # (Auto) 6.4, Lymph # (Auto) 1.4, [place] # (Auto) 0.6, Eos # (Auto) 0.1, Baso # (Auto) 0.1 01/23/19 07:06: Sodium 139, Potassium 4.2, Chloride 105, Carbon Dioxide 26, Anion Gap 12.2, BUN 21 H, Creatinine 1.47 H D, Estimated Creat Clear 76, Estimated GFR 49 L, Est GFR ( Amer) 59 D, Glucose 201 H D, Calcium 8.6, Total Bilirubin 0.3, AST 15, ALT 9 L, Alkaline Phosphatase 130 H, Total Protein 6.5, Albumin 2.8 L, Globulin 3.7 H, Albumin/Globulin Ratio 0.8 L I & O for Last 24 hours: Intake & Output 01/20/19 01/21/19 01/22/19 01/23/19 11:59 11:59 11:59 11:59 Intake Total 240 / 240 Balance 240 / 240 Weight 220 lb 5 oz - Constitutional no acute distress - *Routine Respiratory Exam Present: wheezes (As per usual. Air movement is good.) - *Routine Cardiovascular Exam Present: RRR - *Routine Abdominal Exam Present: soft, distended. Absent: tenderness - *Routine Extremities Exam Absent: edema Assessment and Plan (1) Diverticulitis Current visit: No Status: Acute Category: Medical Code(s): K57.92 - Diverticulitis of intestine, part unspecified, without perforation or abscess without bleeding (2) Type 2 diabetes mellitus Current visit: Yes Status: Acute Qualifiers: Diabetes mellitus complication status: with circulatory complication Category: Medical Code(s): E11.9 - Type 2 diabetes mellitus without complications (3) Insulin dependent diabetes mellitus Current visit: Yes Status: Acute Category: Medical Code(s): E11.9 - Type 2 diabetes mellitus without complications; Z79.4 - correction (current) use of insulin (4) Abnormal CT of liver Current visit: Yes Status: Acute Category: Medical Code(s): R93.2 - Abnormal findings on diagnostic imaging of liver and biliary tract (5) Abnormal CT scan of lung Current visit: Yes Status: Acute Category: Medical Code(s): R91.8 - Other nonspecific abnormal finding of lung field (6) Abdominal pain Current visit: No Status: Acute Category: Medical Code(s): R10.9 - Unspecified abdominal pain (7) Cardiac pacemaker in situ Current visit: No Status: Chronic Category: Medical Code(s): Z95.0 - Presence of cardiac pacemaker (8) Coronary arteriosclerosis Current visit: No Status: Chronic Category: Medical Code(s): I25.10 - Atherosclerotic heart disease of [place] coronary artery without angina pectoris (9) Dysphagia Current visit: Yes Status: Acute Category: Medical Code(s): R13.10 - Dysphagia, unspecified - Assessment and plan all Dx Assessment and Plan for all problems:: Diet ordered for today. N.p.o. after Friday midnight. GI consultation Friday and pulmonary consultation as well
--- NOTE | 2019-01-24 11:03 | Progress Note ---
Internal Medicine - PN: Subj *Date: 01/24/19 *Time: 11:00 Interval history: He is clinically very stable. He has less abdominal discomfort. His white count is normal. His total picture seems to point toward esophageal cancer with metastasis. Dr. Reynaga will be seeing the patient tomorrow and I hope that he is able to do EGD on the patient to resolve the diagnosis. I have discussed frankly with the patient the applications of his findings. Exam Vital signs and Labs for Last 24 Hours: Temp Pulse Resp BP Pulse Ox 98.4 F 70 18 168/93 H 97 01/24/19 08:00 01/24/19 08:00 01/24/19 08:00 01/24/19 08:00 01/24/19 08:00 Laboratory Results - last 24 hr 01/23/19 11:37: POC Glucose 171 H 01/23/19 16:16: POC Glucose 158 H 01/23/19 20:47: POC Glucose 250 H 01/24/19 06:14: POC Glucose 149 H I & O for Last 24 hours: Intake & Output 01/21/19 01/22/19 01/23/19 01/24/19 11:59 11:59 11:59 11:59 Intake Total 240 / 240 4412 / 4412 Balance 240 / 240 4412 / 4412 Weight 220 lb 5 oz 222 lb 7 oz - Constitutional no acute distress - *Routine HEENT Exam Head: Present: normocephalic Eye: Present: PERRL ENT: Present: mucous membranes moist - Routine Chest/Breast/Axilla Exam Chest wall: Present: pacemaker. Absent: tenderness - *Routine Respiratory Exam Present: CTA bilaterally - *Routine Cardiovascular Exam Present: RRR - *Routine Abdominal Exam Present: soft. Absent: tenderness, organomegaly, mass - *Routine Extremities Exam Absent: edema Assessment and Plan (1) Abdominal pain Current visit: No Status: Acute Category: Medical Code(s): R10.9 - Unspecified abdominal pain (2) Dysphagia Current visit: Yes Status: Acute Category: Medical Code(s): R13.10 - Dysphagia, unspecified (3) Diverticulitis Current visit: No Status: Acute Category: Medical Code(s): K57.92 - Diverticulitis of intestine, part unspecified, without perforation or abscess without bleeding (4) Abnormal CT scan, esophagus Current visit: Yes Status: Acute Category: Medical Code(s): R93.3 - Abnorm al findings on diagnostic imaging of other parts of digestive tract (5) Abnormal CT scan of lung Current visit: Yes Status: Acute Category: Medical Code(s): R91.8 - Other nonspecific abnormal finding of lung field (6) Abnormal CT of liver Current visit: Yes Status: Acute Category: Medical Code(s): R93.2 - Abnormal findings on diagnostic imaging of liver and biliary tract (7) Type 2 diabetes mellitus Current visit: Yes Status: Acute Qualifiers: Diabetes mellitus complication status: with circulatory complication Category: Medical Code(s): E11.9 - Type 2 diabetes mellitus without complications (8) Insulin dependent diabetes mellitus Current visit: Yes Status: Acute Category: Medical Code(s): E11.9 - Type 2 diabetes mellitus without complications; Z79.4 - FPC (current) use of insulin (9) Coronary arteriosclerosis Current visit: No Status: Chronic Category: Medical Code(s): I25.10 - Atherosclerotic heart disease of [place] coronary artery without angina pectoris (10) Cardiac pacemaker in situ Current visit: No Status: Chronic Category: Medical Code(s): Z95.0 - Presence of cardiac pacemaker (11) COPD (chronic obstructive pulmonary disease) Current visit: Yes Status: Acute Category: Medical Code(s): J44.9 - Chronic obstructive pulmonary disease, unspecified - Assessment and plan all Dx Assessment and Plan for all problems:: P.o. after midnight. GI consult. Likely EGD.
[2019-01-25 06:33] LABS: Basophils # 0.1 K/mm3 (0-0.2); Basophils % 0.6 % (0.1-2.0); Eosinophils # 0.1 K/mm3 (0.0-0.4); Eosinophils % 1.4 % (0.1-12.0); Hematocrit 43.5 % (42.0-52.0); Hemoglobin 13.4 g/dL (14.1-18.0); Lymphocytes # 1.5 K/mm3 (0.7-4.5); Lymphocytes % 16.7 % (10-50); Mean Corpuscular HGB Conc 30.7 g/dL (31.8-35.4); Mean Corpuscular Volume 100.1 fl (80-94); Mean Platelet Volume 7.5 fl (7.4-10.4); Monocytes # 0.6 K/mm3 (0.1-1.0); Monocytes % 6.5 % (1.7-9.3); Neutrophils # 6.5 K/mm3 (1.8-7.8); Neutrophils % 74.8 % (37.0-80.0); Platelet Count 250 K/mm3 (142-424); Red Blood Count 4.35 M/mm3 (4.60-6.20); Red Cell Distribution Width 15.2 % (11.5-17.5); White Blood Count 8.7 K/mm3 (4.8-10.8)
[2019-01-25 06:36] LABS: Anion Gap 12.5 mEq/L (5-15); Calcium 8.8 mg/dL (8.5-10.1)
--- NOTE | 2019-01-25 08:14 | Progress Note ---
Internal Medicine - PN: Subj *Date: 01/25/19 *Time: 08:18 Interval history: Patient states abdominal discomfort has resolved. He continues to have difficulty with swallowing any solid foods. Food becomes stuck in esophagus and he usually has to regurgitate. He denies chest pain and shortness of breath. He has ambulated in the room. He is currently n.p.o. for GI visit. Exam Vital signs and Labs for Last 24 Hours: Temp Pulse Resp BP Pulse Ox 98.5 F 70 20 148/84 H 99 01/25/19 04:00 01/25/19 04:00 01/25/19 04:00 01/25/19 04:00 01/25/19 04:00 Laboratory Results - last 24 hr 01/22/19 17:25: Carcinoembryonic Ag 5.6 H 01/24/19 11:13: POC Glucose 198 H 01/25/19 05:55: WBC 8.7, RBC 4.35 L, Hgb 13.4 L, Hct 43.5, MCV 100.1 H, MCH 30.8, MCHC 30.7 L, RDW 15.2, Plt Count 250, MPV 7.5, Neut % (Auto) 74.8, Lymph % (Auto) 16.7, [place] % (Auto) 6.5, Eos % (Auto) 1.4, Baso % (Auto) 0.6, Neut # (Auto) 6.5, Lymph # (Auto) 1.5, [place] # (Auto) 0.6, Eos # (Auto) 0.1, Baso # (Auto) 0.1 01/25/19 05:55: Sodium 139, Potassium 4.5, Chloride 105, Carbon Dioxide 26, Anion Gap 12.5, BUN 10 D, Creatinine 1.18, Estimated Creat Clear 93, Estimated GFR 63, Est GFR ( Amer) 76 D, Glucose 170 H, Calcium 8.8 I & O for Last 24 hours: Intake & Output 01/22/19 01/23/19 01/24/19 01/25/19 11:59 11:59 11:59 11:59 Intake Total 240 / 240 4412 / 4412 1968 Balance 240 / 240 2 / 4411 Weight 220 lb 5 oz 222 lb 7 oz 217 lb 3 oz Radiology Reports for the Last 24 Hours: Chest x-ray 01/22/2019 IMPRESSION: Bilateral pulmonary nodules suspicious for metastatic disease Abdominal pelvis CT 01/22/2019 IMPRESSION: 1. Moderate wall thickening of the distal esophagus with multiple mildly enlarged parasite vaginal lymph nodes in prominent nodes in the riya hepatis. Esophageal neoplasm is considered and upper endoscopy is recommended 2. Numerous ill-defined hypoattenuating masses within the liver along with bilateral pulmonary nodules consistent with metastatic disease. 3. Colonic diverticulosis. No evidence of diverticulitis. - Constitutional Comments: Awakened for assessment. Using his CPAP. N.p.o. for GI visit this a.m. Appears comfortable. - *Routine Respiratory Exam Comments: Decreased breath sounds on the left. Basilar crackles on the right - *Routine Cardiovascular Exam Present: RRR Comments: Rare ectopy - *Routine Abdominal Exam Present: soft, normoactive bowel sounds (Good bowel sounds), tenderness (Mild tenderness left lower quadrant). Absent: distended - *Routine Extremities Exam Absent: edema, calf tenderness - *Routine Neurological Exam Present: alert, oriented X3 Assessment and Plan (1) Abdominal pain Current visit: No Status: Acute Category: Medical Code(s): R10.9 - Unspecified abdominal pain (2) Dysphagia Current visit: Yes Status: Acute Category: Medical Code(s): R13.10 - Dysphagia, unspecified (3) Diverticulitis Current visit: No Status: Acute Category: Medical Code(s): K57.92 - Diverticulitis of intestine, part unspecified, without perforation or abscess without bleeding (4) Abnormal CT scan, esophagus Current visit: Yes Status: Acute Category: Medical Code(s): R93.3 - Abnormal findings on diagnostic imaging of other parts of digestive tract (5) Abnormal CT scan of lung Current visit: Yes Status: Acute Category: Medical Code(s): R91.8 - Other nonspecific abnormal finding of lung field (6) Abnormal CT of liver Current visit: Yes Status: Acute Category: Medical Code(s): R93.2 - Abnormal findings on diagnostic imaging of liver and biliary tract (7) Type 2 diabetes mellitus Current visit: Yes Status: Acute Qualifiers: Diabetes mellitus complication status: with circulatory complication Category: Medical Code(s): E11.9 - Type 2 diabetes mellitus without complications (8) Insulin dependent diabetes mellitus Current visit: Yes Status: Acute Category: Medical Code(s): E11.9 - Type 2 diabetes mellitus without complications; Z79.4 - correction (current) use of insulin (9) Coronary arteriosclerosis Current visit: No Status: Chronic Category: Medical Code(s): I25.10 - Atherosclerotic heart disease of [place] coronary artery without angina pectoris (10) Cardiac pacemaker in situ Current visit: No Status: Chronic Category: Medical Code(s): Z95.0 - Presence of cardiac pacemaker (11) COPD (chronic obstructive pulmonary disease) Current visit: Yes Status: Acute Category: Medical Code(s): J44.9 - Chronic obstructive pulmonary disease, unspecified - Assessment and plan all Dx Assessment and Plan for all problems:: Gastroenterology to see today. Patient also has pulmonary consult.
--- NOTE | 2019-01-25 10:54 | Consult Report ---
*Admission Date: 01/22/19 *Reason for consult:: Abnormal findings on CT scan *History of present illness: This is a 58-year-old male who was direct admitted by Dr. Ang for abnormal findings on CT scan. The patient reports that he had developed diverticulitis in August of this year that was successfully treated. At that time he had some bilateral lower abdominal discomfort that resolved after treatment. He presented to his PCPs office with complaints of recurrent abdominal pain that started in his left lower back and radiated around to his left lower quadrant. He reports a Dr. Ang plan to admit him and start him on antibiotics for a repeat diverticulitis. Patient denies any ongoing diarrhea or hematochezia. He is currently getting IV Invanz. CT scan done on 01/22 showed diverticulosis with out diverticulitis. It did, however show thickening of the distal esophageal wall concerning for esophageal neoplasm and recommended upper endoscopy. There were also numerous hypoattenuating masses within the liver along with bilateral pulmonary nodules both of them consistent with metastatic disease. Dr. Reynaga was consulted for possible EGD. Patient seen this morning sitting up in bed with minimal complaints. His white blood cell count has been within normal limits. His hemoglobin is slightly low at 12.7, although hematocrit is within normal limits. Platelets are 268. His alk phos is slightly elevated however, at 130. With an albumin level 2.8. His glucose have been hovering around the 200s and his creatinine is slightly elevated 1.47. The patient reports that he is still having some abdominal discomfort although it has changed position. Is currently mildly uncomfortable left upper quadrant mildly uncomfortable right upper quadrant and both are mildly tender to palpation. His abdomen is mildly distended with some gas bloat as well. Patient reports that he has a history of IBS with some bowel urgency and prominently diarrhea. For 6 weeks ago he developed softer stool that was more formed than his normal. About 1 week ago he started developing constipation. About that time he had 2 to 3 days of black stools but denied that they were tarry. Only lasted 2 or 3 days and resolved on its own and went back to the softer stools. He has had a 30 pound unintentional weight loss over the course of the past month. He denies any further melena or hematochezia. He denies any nausea vomiting or fever. He does report that he has been having some trouble with dysphasia or food getting stuck towards the bottom of his esophagus with every meal every day for the past 3 weeks and often he will have to regurgitate and vomit to get it out. He denies any hematemesis. [facility] History I have reviewed the patient's past medical history: Yes Medical History: Reports:: Asthma, Atrial Fibrillation, Carotid Stenosis, Congestive Heart Failure, Chronic Obstructive Pulmonary Disease (COPD), Coronary Artery Disease, Diabetes Mellitus Type 2, Hyperlipidemia, Hypertension, Internal Pacemaker, Palpitations Denies:: Cancer, Diabetes Mellitus Type 1, MRSA *Have you ever received a pneumonia vaccine?: Yes *Have you received a flu vaccine this season?: No Other Medical History: Reports: Arthritis Laterality Cases: Left: Total Hip Replacement Other Surgeries: Yes: CABG, Cardiac Catheterization, Cholecystectomy, Open Heart Surgery, Pacemaker, Other (resection of sternum, nerve ablation for chest wall) Amputation: Yes (left middle finger) Fractures: Yes ((R) wrist, (R) fingers) - *Social History Educational Level: Completed GED/General Educational Development Smoking Status: Former smoker # Packs/Day (cigarettes): 3 Smoking End Date: 06/02/2010 Alcohol Intake: never Substance Use Type: denies use *Occupational Status:: retired Housing: house Household Members: spouse, children *Travel in the last 8 weeks: None - Psychiatric History Suicide Plan Description: No Plan Family Hx:: Bleeding Disorder, Coronary Artery Disease, Diabetes, Heart Attack, Hyperlipidemia, Hypertension, Stroke Review of Systems - Constitutional Reports weight loss, Denies chills, Denies fatigue, Denies fever(s), Denies night sweats - Eyes Denies blurry vision, Denies change in vision, Denies pain - ENT Reports difficulty swallowing, Reports pain with swallowing, Denies dizziness, Denies headache(s), Denies hoarseness, Denies sore throat, Denies throat swelling - *Cardiovascular Denies chest pain, Denies shortness of breath, Denies lightheadedness, Denies fainting - *Respiratory Denies cough, Denies shortness of breath - *Gastrointestinal Reports abdominal pain, Reports bloating, Reports change in stools, Reports constipation, Reports loose stools, Reports difficulty swallowing, Reports pain with swallowing, Denies belching, Denies change in bowel habits, Denies coffee ground vomit, Denies cramping, Denies heartburn, Denies excessive passing of gas, Denies incontinent of stools, Denies heartburn, Denies vomiting blood, Denies bright, red blood in stools, Denies nausea, Denies vomiting Comments: He reports a history of IBS with bowel urgency as diarrhea as his prominent. For the past 4 to 6 weeks he has had more formed stool although it is still very soft. He did have constipation about a week ago and had black stools for 2 or 3 days that he denies were tarry and reports that they resolved after 3 days. He denies hematochezia. - *Genitourinary Denies painful urination, Denies urinary frequency - *Musculoskeletal Reports back pain, Denies joint pain, Denies muscle weakness, Denies numbness, Denies tingling - *Neurologic Denies behavioral changes, Denies confusion, Denies dizziness, Denies fainting - Endocrine Denies cold intolerance, Denies increased thirst, Denies increased hunger - Hematologic/Lymphatic Denies easy bleeding, Denies easy bruising Meds Home Medications Medication Instructions Recorded Confirmed Type atorvastatin 40 mg tablet 40 mg PO HS tab 08/18/17 01/22/19 History fenofibrate nanocrystallized 145 145 mg PO DAILY tab 08/18/17 01/22/19 History mg tablet ipratropium 20 mcg-albuterol 100 1 puff INHALATION QID PRN 08/18/17 01/22/19 History mcg/actuation mist for inhalation lisinopril 40 mg tablet 40 mg PO BID tab 08/18/17 01/23/19 History nitroglycerin 0.4 mg sublingual 0.4 mg SUBLINGUAL Q5M PRN 08/18/17 01/22/19 History tablet triamterene 75 1 tab PO DAILY 08/18/17 01/23/19 History mg-hydrochlorothiazide 50 mg tablet Allopurinol [Allopurinol 300mg 300 mg PO DAILY 09/04/18 01/22/19 History tablet] Gabapentin [Gabapentin 300mg Cap] 600 mg PO HS 09/04/18 01/22/19 History Hydrocodone/Acetaminophen 1 each PO TIDP PRN 09/04/18 01/22/19 History [Hydrocodone-Acetamin 7.5-325] Insulin Regular, Human [Humulin R 115 unit SQ BID 09/04/18 01/22/19 History U-500] Carvedilol [Carvedilol 25mg Tab] 50 mg PO BID 01/22/19 01/23/19 History Clopidogrel Bisulfate [Plavix 75mg 75 mg PO DAILY 01/22/19 01/22/19 History Tab] Rivaroxaban [Xarelto 20mg Tablet] 20 mg PO PM 01/22/19 01/23/19 History Gabapentin [Gabapentin 300mg Cap] 300 mg PO 0900,1200 01/23/19 01/23/19 History Allergies Allergy/AdvReac Type Severity Reaction Status Date / Time metformin Allergy Severe QUIT Verified 09/08/18 11:25 BREATHING Penicillins Allergy Intermediate Hives Verified 09/08/18 11:25 egg AdvReac Mild Verified 01/25/19 10:46 Exam Vital signs and Labs for Last 24 Hours: Temp Pulse Resp BP Pulse Ox 97.9 F 69 16 159/82 H 96 01/25/19 08:00 01/25/19 08:00 01/25/19 08:00 01/25/19 08:00 01/25/19 08:00 Laboratory Results - last 24 hr 01/22/19 17:25: Carcinoembryonic Ag 5.6 H 01/24/19 11:13: POC Glucose 198 H 01/24/19 16:38: POC Glucose 304 H* 01/24/19 20:44: POC Glucose 155 H 01/25/19 05:55: WBC 8.7, RBC 4.35 L, Hgb 13.4 L, Hct 43.5, MCV 100.1 H, MCH 30.8, MCHC 30.7 L, RDW 15.2, Plt Count 250, MPV 7.5, Neut % (Auto) 74.8, Lymph % (Auto) 16.7, [place] % (Auto) 6.5, Eos % (Auto) 1.4, Baso % (Auto) 0.6, Neut # (Auto) 6.5, Lymph # (Auto) 1.5, [place] # (Auto) 0.6, Eos # (Auto) 0.1, Baso # (Auto) 0.1 01/25/19 05:55: Sodium 139, Potassium 4.5, Chloride 105, Carbon Dioxide 26, Anion Gap 12.5, BUN 10 D, Creatinine 1.18, Estimated Creat Clear 93, Estimated GFR 63, Est GFR ( Amer) 76 D, Glucose 170 H, Calcium 8.8 I & O for Last 24 hours: Intake & Output 01/22/19 01/23/19 01/24/19 01/25/19 11:59 11:59 11:59 11:59 Intake Total 240 4412 1968 Balance 240 4412 1968 Weight 99.932 kg 100.896 kg 98.515 kg Radiology Reports for the Last 24 Hours: Procedure: CT ABDOMEN PELVIS WO CON CLINICAL INDICATION: abdominal pain Left lower quadrant pain for 3 weeks with diarrhea COMPARISON: 01/19/2019 TECHNIQUE: Axial images obtained with sagittal and coronal reformats. All CT scans at the facility use one or more dose reduction, viz: automated exposure control, ma/kV adjustment per patient size (including targeted exams where dose is matched to indication, i.e. head), or iterative reconstruction technique. FINDINGS: There are nodular opacities once again noted in the lung bases. There is moderate thickening of the distal aspect of the esophagus with several paraesophageal mildly prominent lymph nodes.. Scattered isodense to these of the liver also noted suspicious for metastatic disease. The spleen, adrenal glands, and pancreas are unremarkable. There are small nodes in the peripancreatic and periportal region. Status post cholecystectomy. No renal or ureteral calculi or hydronephrosis. The spleen and adrenal glands have an unremarkable appearance. No intestinal obstruction or free air. There is colonic diverticulosis but no evidence of diverticulitis. Artifact is present from a left hip prosthesis. No evidence of appendicitis. No acute bony finding. IMPRESSION: 1. Moderate wall thickening of the distal esophagus with multiple mildly enlarged parasite vaginal lymph nodes in prominent nodes in the riya hepatis. Esophageal neoplasm is considered and upper endoscopy is recommended 2. Numerous ill-defined hypoattenuating masses within the liver along with bilateral pulmonary nodules consistent with metastatic disease. 3. Colonic diverticulosis. No evidence of diverticulitis. Dictated by: Flash Long MD 01/23/2019 06:11 Signed by: <Electronically signed by Flash Long MD in [place]> 01/23/2019 06:11 - Constitutional no acute distress, cooperative - *Routine HEENT Exam Head: Present: normocephalic Eye: Present: EOMI, PERRL ENT: Present: mucous membranes moist - *Routine Neck Exam Present: supple. Absent: lymphadenopathy - *Routine Respiratory Exam Present: CTA bilaterally - *Routine Cardiovascular Exam Present: RRR. Absent: murmur, gallop Comments: s/p sternotomy with muscle flap - *Routine Abdominal Exam Present: soft, normoactive bowel sounds, tenderness, distended. Absent: rebound, guarding, rigid, organomegaly, mass, wound Comments: Mild ttp LUQ and RUQ, mildly distended with gas/bloat. No hepatosplenomegaly - *Routine Extremities Exam Absent: cyanosis, clubbing, edema - *Routine Skin Exam Present: warm. Absent: rash - *Routine Neurological Exam Present: alert, oriented X3 Internal Medicine - CN: Reslt - Labs CBC & Chem 7: 01/25/19 05:55 01/25/19 05:55 Labs: Short CBC 01/25/19 Range/Units 05:55 WBC 8.7 (4.8-10.8) K/mm3 Hgb 13.4 L (14.1-18.0) g/dL Hct 43.5 (42.0-52.0) % Plt Count 250 (142-424) K/mm3 [facility] 01/25/19 05:55 Sodium 139 Potassium 4.5 Chloride 105 Carbon Dioxide 26 BUN 10 D Creatinine 1.18 Glucose 170 H Calcium 8.8 Assessment and Plan (1) Abnormal CT scan, esophagus Current visit: Yes Status: Acute Category: Medical Code(s): R93.3 - Abnormal findings on diagnostic imaging of other parts of digestive tract Moderate wall thickening of the distal esophagus with multiple enlarged lymph nodes concerning for esophageal neoplasm. Also numerous masses within the liver and pulmonary nodules both consistent with metastatic disease. Keep n.p.o. Schedule EGD today with Dr. Reynaga as an add-on with biopsies. Further as per clinical course depending upon biopsies/findings. (2) Dysphagia Current visit: Yes Status: Acute Category: Medical Code(s): R13.10 - Dysphagia, unspecified See above plan. EGD today. (3) Abdominal pain Current visit: No Status: Acute Category: Medical Code(s): R10.9 - Unspecified abdominal pain Patient currently being treated for diverticulitis with Invanz, most recent CT 01/22 shows no evidence of diverticulitis but positive diverticulosis. He has a history of IBS with bowel urgency and diarrhea as predominant. He currently just has some mild left upper quadrant and right upper quadrant tenderness palpation. These are mild nonspecific he does have some mild distention with gas/bloat. Recommend adding FiberCon tablets twice a day. Patient has never had a colonoscopy. Patient will need colonoscopy as an outpatient. He can follow-up in our office after discharge. (4) Diverticulitis Current visit: No Status: Acute Category: Medical Code(s): K57.92 - Diverticulitis of intestine, part unspecified, without perforation or abscess without bleeding (5) Abnormal CT scan of lung Current visit: Yes Status: Acute Category: Medical Code(s): R91.8 - Other nonspecific abnormal finding of lung field (6) Abnormal CT of liver Current visit: Yes Status: Acute Category: Medical Code(s): R93.2 - Abnormal findings on diagnostic imaging of liver and biliary tract Patient may need liver biopsy depending upon EGD findings. This can be done as an outpatient again depending upon EGD findings. Currently alk phos is slightly elevated at 130. Could be directly related to lesions found in the liver but cannot completely rule out fatty liver disease for example as patient is a diabetic. She will need follow-up as an outpatient. 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
--- NOTE | 2019-01-25 12:32 | Progress Note ---
[facility] Anesthesia Checklist - Patient Identification Patient Identification: Arm Band - Structural Data Admitted From: Inpatient Planned Operative Procedure/s: egd Consent for Planned Operative Procedure(s) Verified: Yes Verified Documents: Surgical Consent, History and Physical - NPO Status Verified Time NPO: 00:00 - Additional verifications Anesthesia Reactions: No - Airway Assessment C-Spine Mobility Assessed: Yes (mp2) TMJ Mobility Assessed: Yes Dentition: Dentures-good fit - Neurological Assessment Level of Consciousness: Awake, Alert - Anesthesia Plan Anesthesia Risk discussed: Yes Anesthesia Plan: Verified ASA Class: III Anesthesia Type: MAC Acuity:: non emergent [facility] History I have reviewed the patient's past medical history: Yes Medical History: Reports:: Asthma, Atrial Fibrillation, Carotid Stenosis, Congestive Heart Failure, Chronic Obstructive Pulmonary Disease (COPD), Coronary Artery Disease, Diabetes Mellitus Type 2, Hyperlipidemia, Hypertension, Internal Pacemaker, Palpitations Denies:: Cancer, Diabetes Mellitus Type 1, MRSA *Have you ever received a pneumonia vaccine?: Yes *Have you received a flu vaccine this season?: No Other Medical History: Reports: Arthritis Anesthesia experience/problems:: nac Laterality Cases: Left: Total Hip Replacement Other Surgeries: Yes: CABG, Cardiac Catheterization, Cholecystectomy, Open Heart Surgery, Pacemaker, Other (resection of sternum, nerve ablation for chest wall) Amputation: Yes (left middle finger) Fractures: Yes ((R) wrist, (R) fingers) - *Social History Educational Level: Completed GED/General Educational Development Smoking Status: Former smoker # Packs/Day (cigarettes): 3 Smoking End Date: 06/02/2010 Alcohol Intake: never Substance Use Type: denies use *Occupational Status:: retired Housing: house Household Members: spouse, children *Travel in the last 8 weeks: None - Psychiatric History Suicide Plan Description: No Plan Family Hx:: Bleeding Disorder, Coronary Artery Disease, Diabetes, Heart Attack, Hyperlipidemia, Hypertension, Stroke
--- NOTE | 2019-01-25 12:58 | Procedure Note ---
[facility] Procedure Note Procedure Note:: Upper Endoscopy Procedure Report: Esophagogastroduodenoscopy with cold biopsies and TTS balloon dilation Endoscopost: Gus Reynaga II, MD Referring Physician: Rogers Ang MD Date of Procedure: January 25, 2019 Equipment: Olympus GIF 180 standard upper endoscope Sedation: MAC sedation Indications: Mr. Bains is a 58-year-old gentleman who is here for diagnostic upper endoscopy secondary to abnormal findings on CAT scan. He developed acute diverticulitis in August 2018 that was successfully treated. He has now presented with some left flank pain radiating across the upper abdomen. The patient also reports moderate dysphagia with a 30 pound weight loss in the last month. Food will get hung up in the mid lower retrosternal region. The patient also has noted black stools 2 weeks ago. His most recent hemoglobin and hematocrit were 13.4 and 43.5 (near normal). The patient has had long-standing esophageal reflux for decades and has been on PPI therapies but does not take any antireflux therapy regularly. The patient did have a CT scan of the abdomen on January 22 showing esophageal wall thickening concerning for neoplasm. His CAT scan showed multiple enlarged prominent lymph nodes within the mediastinum and riya hepatis as well as ill-defined hypoattenuating masses within the liver along with bilateral pulmonary nodules consistent with metastatic disease. He reports no hematemesis. Procedure: Prior to the procedure, a history and physical exam was performed, and patient's medications and allergies were reviewed. The risks, benefits and alternatives of the sedation and procedure were discussed with the patient. All questions were answered and informed consent was obtained. The patient was brought to the procedure room. Patient identification and proposed procedure were verified by the physician and the nurse. The patient was placed in a left lateral decubitus position and the scope was passed under direct vision. Throughout the procedure, the patient's blood pressure, pulse, and oxygen saturations were monitored continuously. The upper GI endoscopy was accomplished without difficulty. The patient tolerated the procedure well. Findings: The scope was passed directly into the upper esophagus and advanced to the third portion of the duodenum. The post bulbar duodenum and duodenal bulb were normal with normal mucosa and conniventes. There was some peptic duodenitis of the duodenal bulb. The scope was withdrawn through a normal pylorus into the stomach. There was chronic gastritis of the body and fundus and biopsies were taken to rule out H. pylori. Upon retroflexion there was a 2 to 3 cm hiatal hernia. The scope was then withdrawn into the esophagus. The diaphragmatic hiatus was at 41 cm. The top of the gastric folds was at 38 cm. At 37 cm from the incisors was a friable and fungating cavitating mass lesion that extended to 33 cm (4 cm esophageal cavitating lesion). This was certainly arising within Chandra's esophagus. The Z line/squamocolumnar junction was at 30 cm. Biopsies were taken proximally to confirm Chandra's esophagus. Next, biopsies were taken multiple from the esophageal mass that was encompassing 1/2- 2/3 of circumference of the esophagus in this region. There was some stricturing. There also appeared to be fistulization within the mass. This stricturing was gently dilated to 15 mm with a TTS hydrostatic balloon. Impression: 1. 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 Small hiatal hernia (3 cm) 3. 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 I will follow up the biopsies. I would recommend that Goldie Marquis MD/oncology be involved. He will likely need chemoradiation palliatively. He may also need PEG placement versus esophageal stent during and possibly subsequent to therapy. He is currently not a candidate for surgery based upon staging.
[2019-01-26 08:02] LABS: Basophils # 0.1 K/mm3 (0-0.2); Basophils % 0.5 % (0.1-2.0); Eosinophils # 0.2 K/mm3 (0.0-0.4); Eosinophils % 1.8 % (0.1-12.0); Hematocrit 46.6 % (42.0-52.0); Hemoglobin 14.5 g/dL (14.1-18.0); Lymphocytes # 1.5 K/mm3 (0.7-4.5); Lymphocytes % 13.9 % (10-50); Mean Corpuscular HGB Conc 31.1 g/dL (31.8-35.4); Mean Corpuscular Volume 99.4 fl (80-94); Mean Platelet Volume 7.5 fl (7.4-10.4); Monocytes # 0.6 K/mm3 (0.1-1.0); Monocytes % 5.8 % (1.7-9.3); Neutrophils # 8.1 K/mm3 (1.8-7.8); Neutrophils % 77.9 % (37.0-80.0); Platelet Count 297 K/mm3 (142-424); Red Blood Count 4.69 M/mm3 (4.60-6.20); Red Cell Distribution Width 15.2 % (11.5-17.5); White Blood Count 10.4 K/mm3 (4.8-10.8)
[2019-01-26 08:10] LABS: Anion Gap 12.4 mEq/L (5-15); Calcium 9.3 mg/dL (8.5-10.1)
--- NOTE | 2019-01-26 08:14 | Progress Note ---
Internal Medicine - PN: Subj *Date: 01/26/19 *Time: 08:10 Interval history: Patient had EGD by Dr. Reynaga yesterday. He is aware of the results. He is anxious to see Dr. Marquis. He does still have an referral with Dr. Jauregui who will hopefully be here today. He denies chest pain and shortness of breath. His bowels are moving regularly and he has no abdominal pain now. He was able to eat better when sitting up. He ambulates independently without difficulty Exam Vital signs and Labs for Last 24 Hours: Temp Pulse Resp BP Pulse Ox 98.2 F 72 17 149/83 H 99 01/26/19 04:00 01/26/19 04:00 01/26/19 04:00 01/26/19 04:00 01/26/19 04:00 Laboratory Results - last 24 hr 01/24/19 11:15: Vitamin B12 1216 01/24/19 11:15: Folate 3.1 01/24/19 16:38: POC Glucose 304 H* 01/24/19 20:44: POC Glucose 155 H 01/25/19 06:06: POC Glucose 158 H 01/25/19 11:13: POC Glucose 189 H 01/25/19 16:32: POC Glucose 281 H 01/25/19 20:25: POC Glucose 238 H 01/26/19 06:07: POC Glucose 143 H 01/26/19 07:55: WBC 10.4, RBC 4.69, Hgb 14.5, Hct 46.6, MCV 99.4 H, MCH 30.9, MCHC 31.1 L, RDW 15.2, Plt Count 297, MPV 7.5, Neut % (Auto) 77.9, Lymph % (Auto) 13.9, [place]yman % (Auto) 5.8, Eos % (Auto) 1.8, Baso % (Auto) 0.5, Neut # (Auto) 8.1 H, Lymph # (Auto) 1.5, [place]yman # (Auto) 0.6, Eos # (Auto) 0.2, Baso # (Auto) 0.1 I & O for Last 24 hours: Intake & Output 01/23/19 01/24/19 01/25/19 01/26/19 11:59 11:59 11:59 11:59 Intake Total 240 / 240 4412 / 4412 1968 861 / 861 Balance 240 / 240 2 / 4412 19681 / 861 Weight 220 lb 5 oz 222 lb 7 oz 217 lb 3 oz 214 lb 4 oz - Constitutional no acute distress Comments: Appears comfortable. He is conversive. - *Routine Respiratory Exam Comments: Diminished breath sounds bilaterally posteriorly - *Routine Cardiovascular Exam Present: RRR - *Routine Abdominal Exam Present: soft, normoactive bowel sounds. Absent: tenderness, distended - *Routine Extremities Exam Absent: edema, calf tenderness - *Routine Neurological Exam Absent: alert, oriented X3 Assessment and Plan (1) Abnormal CT scan, esophagus Current visit: Yes Status: Acute Category: Medical Code(s): R93.3 - Abnormal findings on diagnostic imaging of other parts of digestive tract (2) Dysphagia Current visit: Yes Status: Acute Category: Medical Code(s): R13.10 - Dysphagia, unspecified (3) Abdominal pain Current visit: No Status: Acute Category: Medical Code(s): R10.9 - Unspecified abdominal pain (4) Diverticulitis Current visit: No Status: Acute Category: Medical Code(s): K57.92 - Diverticulitis of intestine, part unspecified, without perforation or abscess without bleeding (5) Abnormal CT scan of lung Current visit: Yes Status: Acute Category: Medical Code(s): R91.8 - Other nonspecific abnormal finding of lung field (6) Abnormal CT of liver Current visit: Yes Status: Acute Category: Medical Code(s): R93.2 - Abnormal findings on diagnostic imaging of liver and biliary tract (7) Type 2 diabetes mellitus Current visit: Yes Status: Acute Qualifiers: Diabetes mellitus complication status: with circulatory complication Category: Medical Code(s): E11.9 - Type 2 diabetes mellitus without complica tions (8) Insulin dependent diabetes mellitus Current visit: Yes Status: Acute Category: Medical Code(s): E11.9 - Type 2 diabetes mellitus without complications; 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 Marquis and Dr. Jauregui. Probably home today.
[2019-01-26 08:56] VITALS: BP 134/74
--- NOTE | 2019-01-26 09:20 | History & Physical Report ---
*Admission Date: 01/22/19 *Chief complaint: abdominal pain, dysphagia *History of present illness: ADDENDUM TO H&P: Travel History: No recent travel outside of the [facility]. 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 Immunizations: Current. [facility] History Medical History: Reports:: Asthma, Atrial Fibrillation, Carotid Stenosis, Congestive Heart Failure, Chronic Obstructive Pulmonary Disease (COPD), Coronary Artery Disease, Diabetes Mellitus Type 2, Hyperlipidemia, Hypertension, Internal Pacemaker, Palpitations Denies:: Cancer, Diabetes Mellitus Type 1, MRSA *Have you ever received a pneumonia vaccine?: Yes *Have you received a flu vaccine this season?: No Other Medical History: Reports: Arthritis Anesthesia experience/problems:: nac Laterality Cases: Left: Total Hip Replacement Other Surgeries: Yes: CABG, Cardiac Catheterization, Cholecystectomy, Open Heart Surgery, Pacemaker, Other (resection of sternum, nerve ablation for chest wall) Amputation: Yes (left middle finger) Fractures: Yes ((R) wrist, (R) fingers) - *Social History Educational Level: Completed GED/General Educational Development Smoking Status: Former smoker # Packs/Day (cigarettes): 3 Smoking End Date: 06/02/2010 Alcohol Intake: never Substance Use Type: denies use *Occupational Status:: retired Housing: house Household Members: spouse, children *Travel in the last 8 weeks: None - Psychiatric History Suicide Plan Description: No Plan Family Hx:: Bleeding Disorder, Coronary Artery Disease, Diabetes, Heart Attack, Hyperlipidemia, Hypertension, Stroke Review of Systems - *Neurologic Denies behavioral changes, Denies confusion, Denies dizziness, Denies headache(s), Denies numbness, Denies fainting, Denies tingling Meds Home Medications Medication Instructions Recorded Confirmed Type atorvastatin 40 mg tablet 40 mg PO HS tab 08/18/17 01/22/19 History fenofibrate nanocrystallized 145 145 mg PO DAILY tab 08/18/17 01/22/19 History mg tablet ipratropium 20 mcg-albuterol 100 1 puff INHALATION QID PRN 08/18/17 01/22/19 History mcg/actuation mist for inhalation lisinopril 40 mg tablet 40 mg PO BID tab 08/18/17 01/23/19 History nitroglycerin 0.4 mg sublingual 0.4 mg SUBLINGUAL Q5M PRN 08/18/17 01/22/19 History tablet triamterene 75 1 tab PO DAILY 08/18/17 01/23/19 History mg-hydrochlorothiazide 50 mg tablet Allopurinol [Allopurinol 300mg 300 mg PO DAILY 09/04/18 01/22/19 History tablet] Gabapentin [Gabapentin 300mg Cap] 600 mg PO HS 09/04/18 01/22/19 History Hydrocodone/Acetaminophen 1 each PO TIDP PRN 09/04/18 01/22/19 History [Hydrocodone-Acetamin 7.5-325] Insulin Regular, Human [Humulin R 115 unit SQ BID 09/04/18 01/22/19 History U-500] Carvedilol [Carvedilol 25mg Tab] 50 mg PO BID 01/22/19 01/23/19 History Clopidogrel Bisulfate [Plavix 75mg 75 mg PO DAILY 01/22/19 01/22/19 History Tab] Rivaroxaban [Xarelto 20mg Tablet] 20 mg PO PM 01/22/19 01/23/19 History Gabapentin [Gabapentin 300mg Cap] 300 mg PO 0900,1200 01/23/19 01/23/19 History Allergies Allergy/AdvReac Type Severity Reaction Status Date / Time metformin Allergy Severe QUIT Verified 09/08/18 11:25 BREATHING Penicillins Allergy Intermediate Hives Verified 09/08/18 11:25 egg AdvReac Mild Verified 01/25/19 10:46 Exam Vital signs and Labs for Last 24 Hours: Temp Pulse Resp BP Pulse Ox 97.9 F 65 16 134/74 97 01/26/19 07:51 01/26/19 07:51 01/26/19 07:51 01/26/19 07:51 01/26/19 07:51 Laboratory Results - last 24 hr 01/24/19 11:15: Vitamin B12 1216 01/24/19 11:15: Folate 3.1 01/24/19 16:38: POC Glucose 304 H* 01/24/19 20:44: POC Glucose 155 H 01/25/19 06:06: POC Glucose 158 H 01/25/19 11:13: POC Glucose 189 H 01/25/19 16:32: POC Glucose 281 H 01/25/19 20:25: POC Glucose 238 H 01/26/19 06:07: POC Glucose 143 H 01/26/19 07:55: WBC 10.4, RBC 4.69, Hgb 14.5, Hct 46.6, MCV 99.4 H, MCH 30.9, MCHC 31.1 L, RDW 15.2, Plt Count 297, MPV 7.5, Neut % (Auto) 77.9, Lymph % (Auto) 13.9, [place] % (Auto) 5.8, Eos % (Auto) 1.8, Baso % (Auto) 0.5, Neut # (Auto) 8.1 H, Lymph # (Auto) 1.5, [place] # (Auto) 0.6, Eos # (Auto) 0.2, Baso # (Auto) 0.1 01/26/19 07:55: Sodium 136, Potassium 4.4, Chloride 102, Carbon Dioxide 26, Anion Gap 12.4, BUN 10, Creatinine 1.26, Estimated Creat Clear 86, Estimated GFR 58 L, Est GFR ( Amer) 71, Glucose 205 H, Calcium 9.3 I & O for Last 24 hours: Intake & Output 01/23/19 01/24/19 01/25/19 01/26/19 11:59 11:59 11:59 11:59 Intake Total 240 / 240 4412 / 4412 1968 1281 / 1281 Balance 240 / 240 4412 / 4412 1968 1281 / 1281 Weight 220 lb 5 oz 222 lb 7 oz 217 lb 3 oz 214 lb 4 oz Assessment and Plan (1) Abnormal CT scan, esophagus Current visit: Yes Status: Acute Category: Medical Code(s): R93.3 - Abnormal findings on diagnostic imaging of other parts of digestive tract (2) Dysphagia Current visit: Yes Status: Acute Category: Medical Code(s): R13.10 - Dysphagia, unspecified (3) Abdominal pain Current visit: No Status: Acute Category: Medical Code(s): R10.9 - Unspecified abdominal pain (4) Diverticulitis Current visit: No Status: Acute Category: Medical Code(s): K57.92 - Diverticulitis of intestine, part unspecified, without perforation or abscess without bleeding (5) Abnormal CT scan of lung Current visit: Yes Status: Acute Category: Medical Code(s): R91.8 - Other nonspecific abnormal finding of lung field (6) Abnormal CT of liver Current visit: Yes Status: Acute Category: Medical Code(s): R93.2 - Abnormal findings on diagnostic imaging of liver and biliary tract (7) Type 2 diabetes mellitus Current visit: Yes Status: Acute Qualifiers: Diabetes mellitus complication status: with circulatory complication Category: Medical Code(s): E11.9 - Type 2 diabetes mellitus without complications (8) Insulin dependent diabetes mellitus Current visit: Yes Status: Acute Category: Medical Code(s): E11.9 - Type 2 diabetes mellitus without complications; Z79.4 - shelter (current) use of insulin (9) Coronary arteriosclerosis Current visit: No Status: Chronic Category: Medical Code(s): I25.10 - Atherosclerotic heart disease of [place] coronary artery without angina pectoris (10) Cardiac pacemaker in situ Current visit: No Status: Chronic Category: Medical Code(s): Z95.0 - Presence of cardiac pacemaker (11) COPD (chronic obstructive pulmonary disease) Current visit: Yes Status: Acute Category: Medical Code(s): J44.9 - Chronic obstructive pulmonary disease, unspecified
--- NOTE | 2019-01-26 11:44 | Progress Note ---
Internal Medicine - PN: Subj *Date: 01/25/19 *Time: 11:44 Exam Vital signs and Labs for Last 24 Hours: Temp Pulse Resp BP Pulse Ox 97.9 F 65 16 134/74 97 01/26/19 07:51 01/26/19 07:51 01/26/19 07:51 01/26/19 07:51 01/26/19 07:51 Laboratory Results - last 24 hr 01/24/19 11:15: Vitamin B12 1216 01/24/19 11:15: Folate 3.1 01/25/19 16:32: POC Glucose 281 H 01/25/19 20:25: POC Glucose 238 H 01/26/19 06:07: POC Glucose 143 H 01/26/19 07:55: WBC 10.4, RBC 4.69, Hgb 14.5, Hct 46.6, MCV 99.4 H, MCH 30.9, MCHC 31.1 L, RDW 15.2, Plt Count 297, MPV 7.5, Neut % (Auto) 77.9, Lymph % (Auto) 13.9, [place] % (Auto) 5.8, Eos % (Auto) 1.8, Baso % (Auto) 0.5, Neut # (Auto) 8.1 H, Lymph # (Auto) 1.5, [place] # (Auto) 0.6, Eos # (Auto) 0.2, Baso # (Auto) 0.1 01/26/19 07:55: Sodium 136, Potassium 4.4, Chloride 102, Carbon Dioxide 26, Anion Gap 12.4, BUN 10, Creatinine 1.26, Estimated Creat Clear 86, Estimated GFR 58 L, Est GFR ( Amer) 71, Glucose 205 H, Calcium 9.3 I & O for Last 24 hours: Intake & Output 01/23/19 01/24/19 01/25/19 01/26/19 23:59 23:59 23:59 23:59 Intake Total 2711 420 / 420 Balance 2711 420 / 420 Weight 99.932 kg 100.896 kg 98.515 kg 97.182 kg Assessment and Plan (1) Abnormal CT scan, esophagus Status: Acute Category: Medical Code(s): R93.3 - Abnormal findings on diagnostic imaging of other parts of digestive tract (2) Dysphagia Status: Acute Category: Medical Code(s): R13.10 - Dysphagia, unspecified (3) Abdominal pain Status: Acute Category: Medical Code(s): R10.9 - Unspecified abdominal pain (4) Diverticulitis Status: Acute Category: Medical Code(s): K57.92 - Diverticulitis of intestine, part unspecified, without perforation or abscess without bleeding (5) Abnormal CT scan of lung Status: Acute Category: Medical Code(s): R91.8 - Other nonspecific abnormal finding of lung field (6) Abnormal CT of liver Status: Acute Category: Medical Code(s): R93.2 - Abnormal findings on diagnostic imaging of liver and biliary tract (7) Type 2 diabetes mellitus Status: Acute Qualifiers: Diabetes mellitus complication status: with circulatory complication Category: Medical Code(s): E11.9 - Type 2 diabetes mellitus without complications (8) Insulin dependent diabetes mellitus Status: Acute Category: Medical Code(s): E11.9 - Type 2 diabetes mellitus without complications; 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
--- NOTE | 2019-01-28 08:22 | Discharge Summary ---
General - General Admission date:: 01/22/19 Discharge date: 01/22/19 HPI HPI: Mr. Bains is a 58-year-old male with a history of hypertension, diabetes mellitus, diverticulosis and diverticulitis, hiatal hernia, migraines, and a 5 vessel CABG in 2010 who presented to the office of [facility] on 01/22/2019 for follow-up on an abnormal CT and with abdominal pain. With evaluation in the office patient was found to have an elevated white blood cell count and with abdominal pain. He was thus admitted directly to [facility] with diverticulitis and abnormal CT of the lung and liver. ADDENDUM TO H&P: Travel History: No recent travel outside of the [facility]. 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 Immunizations: Current. Hospital Course Hospital Course: Patient was started on IV antibiotics on admission as well as IV fluids, sliding scale insulin, [place] for pain and his cardiac meds. He reported difficulty with swallowing over the past several months and EGD was planned with Dr. Reynaga. His abdominal pain gradually resolved and white blood cell normalized. He had difficulty with swallowing food which did become better after the EGD. EGD was performed on 01/25/2019 with the following results and plan: Impression: 1. 4 cm esophageal cavitating mass (encompassing 1/2-2/3 the esophageal circumference from 33 to 37 cm from the incisors)suspect adenocarcinoma arising within Chandra's esophagus 2. Small hiatal hernia (3 cm) 3. 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 I will follow up the biopsies. I would recommend that Goldie Marquis MD/oncology be involved. He will likely need chemoradiation palliatively. He may also need PEG placement versus esophageal stent during and possibly subsequent to therapy. He is currently not a candidate for surgery based upon staging. Dr. Ang discussed results of all testing with patient and . On 01/26/2019 patient was feeling well. He had no abdominal pain. His bowels were moving. He was able to eat better when sitting up. He ambulated without difficulty and on this date he was discharged home in stable and satisfactory condition. Plan was to follow-up with Dr. Ang and with Dr. Marquis on 01/28/2019. Meds as per medication list. Objective Vital signs: Temp Pulse Resp BP Pulse Ox 97.9 F 65 16 134/74 97 01/26/19 07:51 01/26/19 07:51 01/26/19 07:51 01/26/19 07:51 01/26/19 07:51 Narrative: Exam Vital signs and Labs for Last 24 Hours: Temp Pulse Resp BP Pulse Ox 98.2 F 72 17 149/83 H 99 01/26/19 04:00 01/26/19 04:00 01/26/19 04:00 01/26/19 04:00 01/26/19 04:00 Laboratory Results - last 24 hr 01/24/19 11:15: Vitamin B12 1216 01/24/19 11:15: Folate 3.1 01/24/19 16:38: POC Glucose 304 H* 01/24/19 20:44: POC Glucose 155 H 01/25/19 06:06: POC Glucose 158 H 01/25/19 11:13: POC Glucose 189 H 01/25/19 16:32: POC Glucose 281 H 01/25/19 20:25: POC Glucose 238 H 01/26/19 06:07: POC Glucose 143 H 01/26/19 07:55: WBC 10.4, RBC 4.69, Hgb 14.5, Hct 46.6, MCV 99.4 H, MCH 30.9, MCHC 31.1 L, RDW 15.2, Plt Count 297, MPV 7.5, Neut % (Auto) 77.9, Lymph % (Auto) 13.9, Page % (Auto) 5.8, Eos % (Auto) 1.8, Baso % (Auto) 0.5, Neut # (Auto) 8.1 H, Lymph # (Auto) 1.5, Page # (Auto) 0.6, Eos # (Auto) 0.2, Baso # (Auto) 0.1 I & O for Last 24 hours: Intake & Output 01/23/19 01/24/19 01/25/19 01/26/19 11:59 11:59 11:59 11:59 Intake Total 240 / 240 4412 / 4412 1968 861 / 861 Balance 240 / 240 2 / 2 1968 861 / 861 Weight 220 lb 5 oz 222 lb 7 oz 217 lb 3 oz 214 lb 4 oz - Constitutional no acute distress Comments: Appears comfortable. He is conversive. - *Routine Respiratory Exam Comments: Diminished breath sounds bilaterally posteriorly - *Routine Cardiovascular Exam Present: RRR - *Routine Abdominal Exam Present: soft, normoactive bowel sounds. Absent: tenderness, distended - *Routine Extremities Exam Absent: edema, calf tenderness - *Routine Neurological Exam Absent: alert, oriented X3 Results Completed studies during hospitalization [Text1]: 01/22/19 CXR IMPRESSION: Bilateral pulmonary nodules suspicious for metastatic disease 01/22/19 ABD/pelvis CT IMPRESSION: 1. Moderate wall thickening of the distal esophagus with multiple mildly enlarged parasite vaginal lymph nodes in prominent nodes in the riya hepatis. Esophageal neoplasm is considered and upper endoscopy is recommended 2. Numerous ill-defined hypoattenuating masses within the liver along with bilateral pulmonary nodules consistent with metastatic disease. 3. Colonic diverticulosis. No evidence of diverticulitis. Laboratory Tests 01/22/19 01/23/19 01/26/19 17:25 07:06 07:55 Sodium 136 Potassium 4.4 Chloride 102 Carbon Dioxide 26 Anion Gap 12.4 BUN 10 Creatinine 1.26 Glucose 205 H Calcium 9.3 Total Bilirubin 0.3 AST 15 ALT 9 L Alkaline Phosphatase 130 H Total Protein 6.5 Albumin 2.8 L Globulin 3.7 H Albumin/Globulin Ratio 0.8 L Carcinoembryonic Ag 5.6 H DS: Diagnosis - Discharge Diagnosis (1) Abnormal CT scan, esophagus Status: Acute (2) Dysphagia Status: Acute (3) Abdominal pain Status: Acute (4) Diverticulitis Status: Acute (5) Abnormal CT scan of lung Status: Acute (6) Abnormal CT of liver Status: Acute (7) Type 2 diabetes mellitus Status: Acute (8) Insulin dependent diabetes mellitus Status: Acute (9) Coronary arteriosclerosis Status: Chronic (10) Cardiac pacemaker in situ Status: Chronic (11) COPD (chronic obstructive pulmonary disease) Status: Acute Discharge Plan - Patient Discharge Instructions ACTIVITY: Limited activity DIET: regular diet Additional Instructions: Chopped meat recommended Patient Instructions: DI for Diverticulitis, DI for Esophagitis - Follow up Plan Follow up with: Goldie Marquis MD [Staff Physician] - 01/28/19 11:00 am Disposition: Home, Self-Correction Medications: Home Medications Medication Instructions Recorded Confirmed Type atorvastatin 40 mg tablet 40 mg PO HS tab 08/18/17 01/22/19 History fenofibrate nanocrystallized 145 145 mg PO DAILY tab 08/18/17 01/22/19 History mg tablet ipratropium 20 mcg-albuterol 100 1 puff INHALATION QID PRN 08/18/17 01/22/19 History mcg/actuation mist for inhalation lisinopril 40 mg tablet 40 mg PO BID tab 08/18/17 01/23/19 History nitroglycerin 0.4 mg sublingual 0.4 mg SUBLINGUAL Q5M PRN 08/18/17 01/22/19 History tablet triamterene 75 1 tab PO DAILY 08/18/17 01/23/19 History mg-hydrochlorothiazide 50 mg tablet Allopurinol [Allopurinol 300mg 300 mg PO DAILY 09/04/18 01/22/19 History tablet] Gabapentin [Gabapentin 300mg Cap] 600 mg PO HS 09/04/18 01/22/19 History Hydrocodone/Acetaminophen 1 each PO TIDP PRN 09/04/18 01/22/19 History [Hydrocodone-Acetamin 7.5-325] Insulin Regular, Human [Humulin R 115 unit SQ BID 09/04/18 01/22/19 History U-500] Carvedilol [Carvedilol 25mg Tab] 50 mg PO BID 01/22/19 01/23/19 History Clopidogrel Bisulfate [Plavix 75mg 75 mg PO DAILY 01/22/19 01/22/19 History Tab] Rivaroxaban [Xarelto 20mg Tablet] 20 mg PO PM 01/22/19 01/23/19 History Gabapentin [Gabapentin 300mg Cap] 300 mg PO 0900,1200 01/23/19 01/23/19 History Sucralfate [Carafate] 1 gm PO QID #120 oral.susp 01/26/19 Rx Prescriptions/Medication Reconciliation: New Sucralfate [Carafate] 1 gm PO QID #120 oral.susp Continued atorvastatin 40 mg tablet 40 mg PO HS tab ipratropium 20 mcg-albuterol 100 mcg/actuation mist for inhalation 1 puff INHALATION QID PRN PRN Reason: bronchitis fenofibrate nanocrystallized 145 mg tablet 145 mg PO DAILY tab lisinopril 40 mg tablet 40 mg PO BID tab nitroglycerin 0.4 mg sublingual tablet 0.4 mg SUBLINGUAL Q5M PRN PRN Reason: Chest Pain triamterene 75 mg-hydrochlorothiazide 50 mg tablet 1 tab PO DAILY Insulin Regular, Human [Humulin R U-500] 115 unit SQ BID Hydrocodone/Acetaminophen [Hydrocodone-Acetamin 7.5-325] 1 each PO TIDP PRN PRN Reason: PAIN Clopidogrel Bisulfate [Plavix 75mg Tab] 75 mg PO DAILY Carvedilol [Carvedilol 25mg Tab] 50 mg PO BID Rivaroxaban [Xarelto 20mg Tablet] 20 mg PO PM Gabapentin [Gabapentin 300mg Cap] 300 mg PO 0900,1200 Allopurinol [Allopurinol 300mg tablet] 300 mg PO DAILY Gabapentin [Gabapentin 300mg Cap] 600 mg PO HS - Problem Reconciliation Problems Reviewed?: Yes
== END 2019-01-26 11:35 | disposition home or self-care (01) | DRG 375 ==
LOC: 2ND → OBSVTOIN 15:36
PROVIDERS: ADMIT Family Medicine; ATTEND Family Medicine
CPT/HCPCS: 36415; 71020; 71046; 74176; 80048; 80053; 82378; 82607; 82746; 82962; 85025; C1726; J1335

== ENCOUNTER → 2019-02-03 10:06 | Outpatient (CLI) | payer BC, SELFPAY ==
[2019-02-03 10:22] LABS: Blood Urea Nitrogen 20 mg/dL (7-18); Creatinine,Serum 1.49 mg/dL (0.70-1.30); Estimated Glomerular Filt Rate 48 ml/min (>60); GFR (African American) 58 ML/MIN (>60)
--- NOTE | 2019-02-03 10:47 | CT_ITS ---
PROCEDURE: CT HEAD/BRAIN WO/W CON CLINICAL INDICATION: ESOPHAGEAL CA Headaches, patient with esophageal cancer evaluate for metastatic disease COMPARISON: None TECHNIQUE: IV Contrast: 100ML OPITRAY 320 Axial images obtained with sagittal and coronal reformats. All CT scans at the facility use one or more dose reduction, viz: automated exposure control, ma/kV adjustment per patient size (including targeted exams where dose is matched to indication, i.e. head), or iterative reconstruction technique. FINDINGS: No midline shift, mass effect, intracranial hemorrhage, hydrocephalus, or extra-axial fluid collection is evident. There is mild bifrontal atrophy. No enhancing lesions are evident. The calvarium has an unremarkable appearance. No mastoid effusion no sinus air-fluid level IMPRESSION: 1. No acute intracranial findings 2. No evidence of metastatic disease Dictated by: Flash Long MD 02/03/2019 11:42 Signed by: <Electronically signed by Flash Long MD in [place]> 02/03/2019 11:42
== END ==
PROVIDERS: PCP Family Medicine; Visit Provider Family Medicine
DX: C15.9 Malignant neoplasm of esophagus, unspecified (principal)
CPT/HCPCS: 36415; 70470; 82565; 84520; Q9967

== ENCOUNTER 2019-03-11 15:09 | Observation (INO) ==
--- NOTE | 2019-03-11 15:26 | Emergency Department Note ---
ED Disposition Clinical Impression: Esophageal cancer, stage IV, Dysphagia Disposition: Admitted as Observation Condition on Discharge: Fair Time of Disposition: 18:31 - Critical Care Critical Care Time: No Attestation: On , the high probability of a clinically significant, sudden or life threatening deterioration of the following system(s) required my full and direct attention, intervention and personal management. The time I documented below is in addition to time spent performing reported procedures but includes the following listed in this critical care notation. Medical Decision Making - Medical Records Medical records reviewed: Yes: I reviewed the patient's medical records. - Arias Inquiry Pt receiving controlled substance: Yes Arias was queried for this patient: No (Pt has end stage cancer and is hospice care) Risks and benefits of using a controlled substance: were not discussed with pt by me Vital Signs: 03/11/19 15:19 03/11/19 18:21 Temperature 98.3 F Temperature Source Oral Pulse Rate [Right Brachial] 90 78 Respiratory Rate 16 16 Blood Pressure [Right Arm] 119/70 126/77 Blood Pressure Mean [Right Arm] 86 93 Blood Pressure Source [Right Arm] Automatic Cuff Automatic Cuff Blood Pressure Position [Right Arm] Sitting Sitting 02 Sat by Pulse Oximetry 98 98 Oxygen Delivery Method Room Air Room Air - Lab Data Lab results reviewed: Yes: I reviewed the patient's lab results. Lab Results 03/11/19 15:40: WBC 16.7 H, RBC 4.64, Hgb 13.9 L, Hct 46.2, MCV 99.5 H, MCH 29.9, MCHC 30.0 L, RDW 17.8 H, Plt Count 316, MPV 8.5, Neut % (Auto) 85.5 H, Lymph % (Auto) 8.5 L, Banner % (Auto) 5.2, Eos % (Auto) 0.5, Baso % (Auto) 0.4, Neut # (Auto) 14.3 H, Lymph # (Auto) 1.4, Banner # (Auto) 0.9, Eos # (Auto) 0.1, Baso # (Auto) 0.1, Total Counted 100, Neutrophils % (Manual) 83 H, Lymphocytes % (Manual) 12, Monocytes % (Manual) 5, Platelet Estimate Normal, RBC Morphology Normal 03/11/19 15:40: Sodium 135 L, Potassium 4.9, Chloride 98, Carbon Dioxide 25, Anion Gap 16.9 H, BUN 34 H, Creatinine 1.46 H, Estimated Creat Clear 69, Estimated GFR 49 L, Est GFR ( Amer) 60, Glucose 243 H, Calcium 10.2 H, Total Bilirubin 0.6, AST 37, ALT 15, Alkaline Phosphatase 377 H, Total Protein 8.7 H D, Albumin 3.3 L, Globulin 5.4 H, Albumin/Globulin Ratio 0.6 L, Amylase 24 L, Lipase 69 L 03/11/19 15:40: Lactate 1.9 Result diagrams: 03/11/19 15:40 03/11/19 15:40 Orders (Tests/Meds): ED MEDICATIONS Discontinued Medications Generic Name Dose Route Start Last Admin Trade Name Freq PRN Reason Stop Dose Admin Sodium Chloride 1,000 mls @ 999 mls/hr 03/11/19 15:30 03/11/19 15:38 Sod Chlor 0.9% 1000ml Bag IV 03/11/19 16:30 999 mls/hr .Q1H1M JOVANI Administration Ioversol 75 ml 03/11/19 16:17 03/11/19 16:19 Rad-Optiray 350 100ml Vial IV 03/11/19 16:18 75 ml ONCE ONE Administration Protocol Morphine Sulfate 4 mg 03/11/19 15:27 03/11/19 15:38 Morphine 4mg/Ml Syringe IV 03/11/19 15:28 4 mg ONCE ONE Administration Ondansetron HCl 4 mg 03/11/19 15:27 03/11/19 15:38 Zofran 4mg/2ml Vial IV 03/11/19 15:28 4 mg ONCE ONE Administration Sodium Chloride 10 ml 03/11/19 16:17 03/11/19 16:19 Rad-Saline Flush 10ml Syringe IV 03/11/19 16:18 10 ml ONCE ONE Administration ORDERS Category Date Time Status CT abdomen pelvis w con Stat Cat Scan 03/11/19 15:27 Taken Blood Culture Stat Micro 03/11/19 15:29 Received - Radiology Data #1 Image(s): Chest Image Reviewed: Yes I reviewed the patient's radiology results, Yes I reviewed the patient's radiology image, Yes I discussed the image results w/the radi ologist, Yes I have reviewed radiologist's interpretation Impression progression of his metastatic esophageal cancer - CT Data CT Scan: Abdomen, Pelvis Time Received: 18:[address] Reviewed: Yes: I have reviewed the patient's CT results Findings Narrative: Impression total obstruction of the esophagus Abdominal Pain HPI - General Stated Complaint: Abd Pain Time Seen by Provider: 03/11/19 15:19 - History of Present Illness HPI narrative: Patient is a 58-year-old white male who comes in with complaints of abdominal pain for the past 3 days and getting progressively worse is having constant vomiting every time he tries to eat something and is got to the point now where he cannot keep even his pain medicine down he was diagnosed with esophageal ca ncer back in November and elected to go on hospice care only complaint: abdominal pain Onset (ago): day(s) Consistency: constant Location: epigastric Severity: severe - Related Data Home Medications Medication Instructions Recorded Confirmed atorvastatin 40 mg tablet 40 mg PO HS tab 08/18/17 02/04/19 fenofibrate nanocrystallized 145 145 mg PO DAILY tab 08/18/17 02/04/19 mg tablet ipratropium 20 mcg-albuterol 100 1 puff INHALATION QID PRN 08/18/17 02/04/19 mcg/actuation mist for inhalation lisinopril 40 mg tablet 40 mg PO BID tab 08/18/17 02/04/19 nitroglycerin 0.4 mg sublingual 0.4 mg SUBLINGUAL Q5M PRN 08/18/17 02/04/19 tablet triamterene 75 1 tab PO DAILY 08/18/17 02/04/19 mg-hydrochlorothiazide 50 mg tablet Allopurinol [Allopurinol 300mg 300 mg PO DAILY 09/04/18 02/04/19 tablet] Gabapentin [Gabapentin 300mg Cap] 600 mg PO HS 09/04/18 02/04/19 Hydrocodone/Acetaminophen 1 each PO TIDP PRN 09/04/18 02/04/19 [Hydrocodone-Acetamin 7.5-325] Insulin Regular, Human [Humulin R 115 unit SQ BID 09/04/18 02/04/19 U-500] Carvedilol [Carvedilol 25mg Tab] 50 mg PO BID 01/22/19 02/04/19 Clopidogrel Bisulfate [Plavix 75mg 75 mg PO DAILY 01/22/19 02/04/19 Tab] Rivaroxaban [Xarelto 20mg Tablet] 20 mg PO PM 01/22/19 02/04/19 Gabapentin [Gabapentin 300mg Cap] 300 mg PO 0900,1200 01/23/19 02/04/19 Previous Rx's Medication Instructions Recorded Sucralfate [Carafate] 1 gm PO QID #120 oral.susp 01/26/19 Allergies Allergy/AdvReac Type Severity Reaction Status Date / Time metformin Allergy Severe QUIT Verified 02/04/19 14:55 BREATHING Penicillins Allergy Intermediate Hives Verified 02/04/19 14:55 egg AdvReac Mild Verified 02/04/19 14:55 [facility] History - Hepatitis A Screen Attestation statement:: This patient has been screened for Hepatitis A risk factors. I have reviewed the patient's past medical history: Yes Medical History: Reports:: Asthma, Atrial Fibrillation, Carotid Stenosis, Congestive Heart Failure, Chronic Obstructive Pulmonary Disease (COPD), Coronary Artery Disease, Diabetes Mellitus Type 2, Hyperlipidemia, Hypertension, Internal Pacemaker, Palpitations Denies:: Cancer, Diabetes Mellitus Type 1, MRSA Other Medical History: Reports: Arthritis Laterality Cases: Other Surgeries: Yes: CABG, Cardiac Catheterization, Cholecystectomy, Open Heart Surgery, Pacemaker, Other (resection of sternum, nerve ablation for chest wall) Amputation: Yes (left middle finger) Fractures: Yes ((R) wrist, (R) fingers) - Social History Smoking Status: Former smoker # Packs/Day (cigarettes): 3 Alcohol Intake: never Substance Use Type: denies use Occupational Status: retired Housing: house Household Members: spouse, children Family Hx:: Bleeding Disorder, Coronary Artery Disease, Diabetes, Heart Attack, Hyperlipidemia, Hypertension, Stroke ROS Obtained: Yes All systems reviewed & no additional complaints, Yes Systems reviewed as appropriate & no additional complaints - Gastrointestinal Gastrointestingal: Reports: system reviewed and no additional complaints, except as docu, as per HPI, abdominal pain, vomiting Physical Exam - General General appearance: alert, in no apparent distress - Head Head exam: atraumatic - Eye Eye exam: Present: normal appearance - ENT ENT exam: Present: normal exam - Neck Neck exam: Present: normal inspection - Chest Chest inspection: Present: normal inspection - Respiratory Respiratory exam: Present: normal lung sounds bilaterally - Cardiovascular Cardiovascular exam: Present: regular rate - Abdominal Exam Abdominal exam: Present: tenderness (In the epigastrium), diminished bowel sounds - Extremities Exam Extremities exam: Present: normal inspection - Back Exam Back exam: Present: normal inspection - Neurological Exam Neurological exam: Present: alert, oriented X3 - Psychiatric Psychiatric exam: Present: normal affect
[2019-03-11 15:59] LABS: Albumin Level 3.3 gm/dL (3.4-5.0); Albumin/Globulin Ratio 0.6 (1.1-1.8); Anion Gap 16.9 mEq/L (5-15); Bilirubin,Total 0.6 mg/dL (0.2-1.0); Calcium 10.2 mg/dL (8.5-10.1); Globulin 5.4 gm/dl (1.3-3.2); Total Protein,Serum 8.7 gm/dL (6.4-8.2)
[2019-03-11 16:44] LABS: Basophils # 0.1 K/mm3 (0-0.2); Basophils % 0.4 % (0.1-2.0); Eosinophils # 0.1 K/mm3 (0.0-0.4); Eosinophils % 0.5 % (0.1-12.0); Hematocrit 46.2 % (42.0-52.0); Hemoglobin 13.9 g/dL (14.1-18.0); Lymphocytes # 1.4 K/mm3 (0.7-4.5); Lymphocytes % 8.5 % (10-50); Mean Corpuscular Volume 99.5 fl (80-94); Mean Platelet Volume 8.5 fl (7.4-10.4); Monocytes # 0.9 K/mm3 (0.1-1.0); Monocytes % 5.2 % (1.7-9.3); Neutrophils # 14.3 K/mm3 (1.8-7.8); Neutrophils % 85.5 % (37.0-80.0); Platelet Count 316 K/mm3 (142-424); Red Blood Count 4.64 M/mm3 (4.60-6.20); Red Cell Distribution Width 17.8 % (11.5-17.5); White Blood Count 16.7 K/mm3 (4.8-10.8)
[2019-03-11 17:16] LABS: Lymphocytes % 12 % (10-50); Monocytes % 5 % (2-9); Neutrophils % 83 % (42-76); Total Cells Counted 100
[2019-03-11 17:17] LABS: RBC Morphology Normal
[2019-03-12 07:11] LABS: INR 1.3 (0.9-1.1); Prothrombin Time 13.4 seconds (9.4-11.8)
[2019-03-12 07:12] LABS: Albumin Level 2.7 gm/dL (3.4-5.0); Albumin/Globulin Ratio 0.6 (1.1-1.8); Anion Gap 14.4 mEq/L (5-15); Bilirubin,Total 0.6 mg/dL (0.2-1.0); Globulin 4.5 gm/dl (1.3-3.2); Total Protein,Serum 7.2 gm/dL (6.4-8.2)
[2019-03-12 07:13] LABS: Basophils # 0.1 K/mm3 (0-0.2); Basophils % 0.5 % (0.1-2.0); Eosinophils # 0.2 K/mm3 (0.0-0.4); Eosinophils % 1.2 % (0.1-12.0); Hematocrit 39.6 % (42.0-52.0); Lymphocytes # 1.5 K/mm3 (0.7-4.5); Mean Corpuscular HGB Conc 30.1 g/dL (31.8-35.4); Mean Corpuscular Volume 99.3 fl (80-94); Monocytes # 0.8 K/mm3 (0.1-1.0); Monocytes % 6.1 % (1.7-9.3); Neutrophils # 11.3 K/mm3 (1.8-7.8); Neutrophils % 81.2 % (37.0-80.0); Platelet Count 252 K/mm3 (142-424); Red Blood Count 3.99 M/mm3 (4.60-6.20); Red Cell Distribution Width 17.9 % (11.5-17.5); White Blood Count 13.9 K/mm3 (4.8-10.8)
--- NOTE | 2019-03-12 07:23 | Pharmacy Consult Notes ---
[facility] Pharmacy VTE Monitoring - Patient Demographics Admission date: 03/11/19 Report Date: 03/12/19 Time: 07:23 Allergies/Adverse Reactions: Patient Allergies metformin Allergy (Severe, Verified 02/04/19 14:55) QUIT BREATHING Penicillins Allergy (Intermediate, Verified 02/04/19 14:55) Hives egg Adverse Reaction (Mild, Verified 02/04/19 14:55) Height: 1.75 m Weight: 88.451 kg Patient Problems: Current Active Problems Dysphagia (Acute) Esophageal cancer, stage IV (Acute) - VTE Risk Labs: VTE Related Lab Results Hgb 13.9 g/dL (14.1-18.0) L 03/11/19 15:40 Hct 46.2 % (42.0-52.0) 03/11/19 15:40 Plt Count 316 K/mm3 (142-424) 03/11/19 15:40 BUN 34 mg/dL (7-18) H 03/11/19 15:40 Creatinine 1.46 mg/dL (0.70-1.30) H 03/11/19 15:40 Estimated Creat Clear 69 mL/min (50-200) 03/11/19 15:40 VTE Score: 5 VTE Risk Level: Low Risk - Prophylaxis VTE Prophylaxis Ordered?: Yes Types of VTE Prophylaxis: TEDS Knee High Location of Applied Device: Bilateral Lower Extremeties - VTE Diagnosis Confirmed Treatment or plan recommended: Continue Current Treatment
[2019-03-12 07:32] LABS: Hemoglobin 11.9 g/dL (14.1-18.0)
[2019-03-12 07:44] LABS: Calcium 9.3 mg/dL (8.5-10.1)
--- NOTE | 2019-03-12 08:59 | History & Physical Report ---
*Admission Date: 03/11/19 *Chief complaint: vomiting *History of present illness: Mr. Bains is a 58-year-old male with a history of esophageal cancer. He is currently cared for by hospice. He states he has had issues off and on with vomiting and difficulty swallowing. For the past 3 days he has been unable to swallow any liquids or solids. He presented to the office of [facility] yesterday and was seen by Dr. Coombs. He was felt to be dehydrated and sent to the emergency room for evaluation. In the office, his white blood cell count was 18.9. A CT was done in the emergency room and according to the ER note, there was total obstruction of the esophagus. Official CT results are still pending. The patient was admitted and started on IV fluids, antiemetics, and pain control. [facility] History I have reviewed the patient's past medical history: Yes Medical History: Reports:: Asthma, Atrial Fibrillation, Cancer (Esophageal), Carotid Stenosis, Congestive Heart Failure, Chronic Obstructive Pulmonary Disease (COPD), Coronary Artery Disease, Diabetes Mellitus Type 2, Hyperlipidemia, Hypertension, Internal Pacemaker, Palpitations Denies:: Diabetes Mellitus Type 1, MRSA *Have you ever received a pneumonia vaccine?: No *Have you received a flu vaccine this season?: No Other Medical History: Reports: Arthritis Laterality Cases: Left: Total Hip Replacement, Other Other Surgeries: Yes: CABG, Cardiac Catheterization, Cardiac Surgery, Cholecystectomy, EGD, Open Heart Surgery, Pacemaker, Other (resection of sternum, nerve ablation for chest wall) Amputation: Yes (left middle finger) Fractures: Yes ((R) wrist, (R) fingers) - *Social History Educational Level: Completed GED/General Educational Development Smoking Status: Former smoker Tobacco Type: cigarettes # Packs/Day (cigarettes): 2 #Yrs smoked (if former smoker): 40 Smoking End Date: 2010 Alcohol Intake: former Alcohol Intake Frequency:: holidays/special occasions only Substance Use Type: denies use *Occupational Status:: retired Housing: house Household Members: spouse, children *Travel in the last 8 weeks: None Family Hx:: Bleeding Disorder, Coronary Artery Disease, Diabetes, Heart Attack, Hyperlipidemia, Hypertension, Stroke Review of Systems - Constitutional Reports fatigue, Reports headache(s), Reports weakness - Eyes Denies blurry vision, Denies double vision - ENT Denies nasal congestion, Denies sore throat - *Cardiovascular Denies chest pain, Denies shortness of breath - *Respiratory Denies cough, Denies shortness of breath - *Gastrointestinal Reports abdominal pain, Reports nausea, Reports vomiting, Denies loose stools - *Genitourinary Denies difficulty urinating, Denies painful urination - *Musculoskeletal Denies joint pain - *Neurologic Reports headache(s), Reports weakness Meds Home Medications Medication Instructions Recorded Confirmed Type atorvastatin 40 mg tablet 40 mg PO HS tab 08/18/17 03/11/19 History fenofibrate nanocrystallized 145 145 mg PO DAILY tab 08/18/17 03/11/19 History mg tablet ipratropium 20 mcg-albuterol 100 1 puff INHALATION QID PRN 08/18/17 03/11/19 History mcg/actuation mist for inhalation lisinopril 40 mg tablet 40 mg PO BID tab 08/18/17 03/11/19 History nitroglycerin 0.4 mg sublingual 0.4 mg SUBLINGUAL Q5M PRN 08/18/17 03/11/19 History tablet triamterene 75 1 tab PO DAILY 08/18/17 03/11/19 History mg-hydrochlorothiazide 50 mg tablet Allopurinol [Allopurinol 300mg 300 mg PO DAILY 09/04/18 03/11/19 History tablet] Gabapentin [Gabapentin 300mg Cap] 600 mg PO HS 09/04/18 03/11/19 History Hydrocodone/Acetaminophen 1 each PO TIDP PRN 09/04/18 03/11/19 History [Hydrocodone-Acetamin 7.5-325] Insulin Regular, Human [Humulin R 115 unit SQ BID 09/04/18 03/11/19 History U-500] Carvedilol [Carvedilol 25mg Tab] 50 mg PO BID 01/22/19 03/11/19 History Clopidogrel Bisulfate [Plavix 75mg 75 mg PO DAILY 01/22/19 03/11/19 History Tab] Rivaroxaban [Xarelto 20mg Tablet] 20 mg PO PM 01/22/19 03/11/19 History Gabapentin [Gabapentin 300mg Cap] 300 mg PO 0900,1200 01/23/19 03/11/19 History Sucralfate [Carafate] 1 gm PO QID #120 oral.susp 01/26/19 03/11/19 Rx Polyethylene Glycol 3350 [Gavilax] 238 gm PO NEEDED PRN 03/11/19 03/11/19 History Sennosides 8.6 mg PO HS 03/11/19 03/11/19 History fentaNYL [fentaNYL 25mcg/patch] 25 mcg TD Q72H 03/11/19 03/11/19 History raNITIdine HCl [Ranitidine HCl] 150 mg PO BID 03/11/19 03/11/19 History Allergies Allergy/AdvReac Type Severity Reaction Status Date / Time metformin Allergy Severe QUIT Verified 02/04/19 14:55 BREATHING Penicillins Allergy Intermediate Hives Verified 02/04/19 14:55 egg AdvReac Mild Verified 02/04/19 14:55 Exam Vital signs and Labs for Last 24 Hours: Temp Pulse Resp BP Pulse Ox 98.3 F 85 18 119/81 98 03/12/19 04:00 03/12/19 04:00 03/12/19 04:00 03/12/19 04:00 03/12/19 07:50 Laboratory Results - last 24 hr 03/11/19 15:40: WBC 16.7 H, RBC 4.64, Hgb 13.9 L, Hct 46.2, MCV 99.5 H, MCH 29.9, MCHC 30.0 L, RDW 17.8 H, Plt Count 316, MPV 8.5, Neut % (Auto) 85.5 H, Lymph % (Auto) 8.5 L, Frontier % (Auto) 5.2, Eos % (Auto) 0.5, Baso % (Auto) 0.4, Neut # (Auto) 14.3 H, Lymph # (Auto) 1.4, Frontier # (Auto) 0.9, Eos # (Auto) 0.1, Baso # (Auto) 0.1, Total Counted 100, Neutrophils % (Manual) 83 H, Lymphocytes % (Manual) 12, Monocytes % (Manual) 5, Platelet Estimate Normal, RBC Morphology Normal 03/11/19 15:40: Sodium 135 L, Potassium 4.9, Chloride 98, Carbon Dioxide 25, Anion Gap 16.9 H, BUN 34 H, Creatinine 1.46 H, Estimated Creat Clear 69, Estimated GFR 49 L, Est GFR ( Amer) 60, Glucose 243 H, Calcium 10.2 H, Total Bilirubin 0.6, AST 37, ALT 15, Alkaline Phosphatase 377 H, Total Protein 8.7 H D, Albumin 3.3 L, Globulin 5.4 H, Albumin/Globulin Ratio 0.6 L, Amylase 24 L, Lipase 69 L 03/11/19 15:40: Lactate 1.9 03/11/19 21:55: POC Glucose 161 H 03/12/19 06:28: POC Glucose 161 H 03/12/19 06:42: WBC 13.9 H, RBC 3.99 L, Hgb 11.9 L D, Hct 39.6 L, MCV 99.3 H, MCH 29.9, MCHC 30.1 L, RDW 17.9 H, Plt Count 252, MPV 8.0, Neut % (Auto) 81.2 H, Lymph % (Auto) 11.0, Frontier % (Auto) 6.1, Eos % (Auto) 1.2, Baso % (Auto) 0.5, Neut # (Auto) 11.3 H, Lymph # (Auto) 1.5, Frontier # (Auto) 0.8, Eos # (Auto) 0.2, Baso # (Auto) 0.1 03/12/19 06:42: PT 13.4 H, INR 1.30 H 03/12/19 06:42: Sodium 137, Potassium 4.4, Chloride 102, Carbon Dioxide 25, Anion Gap 14.4, BUN 30 H, Creatinine 1.21, Estimated Creat Clear 81, Estimated G FR 61, Est GFR ( Amer) 74 D, Glucose 151 H D, Calcium 9.3, Magnesium 1.7, Total Bilirubin 0.6, AST 32, ALT 14, Alkaline Phosphatase 318 H, Total Protein 7.2, Albumin 2.7 L D, Globulin 4.5 H, Albumin/Globulin Ratio 0.6 L I & O for Last 24 hours: Intake & Output 03/09/19 03/10/19 03/11/19 03/12/19 11:59 11:59 11:59 11:59 Intake Total 1544 / 1544 Balance 1544 / 1544 Weight 195 lb - Constitutional no acute distress - *Routine HEENT Exam Head: Present: normocephalic Eye: Present: EOMI, PERRL ENT: Present: mucous membranes dry - *Routine Neck Exam Present: supple. Absent: lymphadenopathy - *Routine Respiratory Exam Present: CTA bilaterally - *Routine Cardiovascular Exam Present: RRR - *Routine Abdominal Exam Present: soft, normoactive bowel sounds, tenderness (periumbilical) - *Routine Extremities Exam Absent: cyanosis, clubbing, edema - *Routine Skin Exam Present: warm. Absent: rash - *Routine Neurological Exam Present: alert, oriented X3 - Detailed Eye Exam Eyelids: Left normal inspection H&P: Result - Impressions CXR - Progression of metastatic disease CT still pending Assessment and Plan (1) Dysphagia Current visit: Yes Status: Acute Category: Medical Code(s): R13.10 - Dysphagia, unspecified (2) Esophageal cancer, stage IV Current visit: Yes Status: Acute Category: Medical Code(s): C15.9 - Malignant neoplasm of esophagus, unspecified (3) Abdominal pain Current visit: No Status: Acute Category: Medical Code(s): R10.9 - Unspecified abdominal pain (4) COPD (chronic obstructive pulmonary disease) Current visit: No Status: Chronic Category: Medical Code(s): J44.9 - Chronic obstructive pulmonary disease, unspecified (5) Type 2 diabetes mellitus Current visit: No Status: Chronic Qualifiers: Diabetes mellitus complication status: with circulatory complication Category: Medical Code(s): E11.9 - Type 2 diabetes mellitus without complications (6) Cardiac pacemaker in situ Current visit: No Status: Chronic Category: Medical Code(s): Z95.0 - Presence of cardiac pacemaker (7) Coronary arteriosclerosis Current visit: No Status: Chronic Category: Medical Code(s): I25.10 - Atherosclerotic heart disease of [place] coronary artery without angina pectoris (8) Diabetes mellitus Current visit: No Status: Chronic Category: Medical Code(s): E11.9 - Type 2 diabetes mellitus without complications (9) Hyperlipidemia Current visit: No Status: Chronic Qualifiers: Hyperlipidemia type: mixed hyperlipidemia Qualified Code(s): E78.2 - Mixed hyperlipidemia Category: Medical Code(s): E78.5 - Hyperlipidemia, unspecified (10) Hypertensive heart disease without heart failure Current visit: No Status: Chronic Category: Medical Code(s): I11.9 - Hypertensive heart disease without heart failure (11) Stented coronary artery Current visit: No Status: Chronic Category: Surgical Code(s): Z95.5 - Presence of coronary angioplasty implant and graft - Assessment and plan all Dx Assessment and Plan for all problems:: Patient does feel better after receiving IV fluids throughout the night. He is requesting placement of a feeding tube. He would like to discuss this with Dr. Ang.
--- NOTE | 2019-03-12 13:10 | Progress Note ---
[facility] Anesthesia Checklist - Patient Identification Patient Identification: Arm Band - Structural Data Admitted From: Inpatient Planned Operative Procedure/s: egd with possible esophageal dilation, possible PEG tube Consent for Planned Operative Procedure(s) Verified: Yes Verified Documents: Surgical Consent, History and Physical - NPO Status Verified Time NPO: 00:00 - Additional verifications Anesthesia Reactions: No - Airway Assessment C-Spine Mobility Assessed: Yes (mp2) TMJ Mobility Assessed: Yes Dentition: Poor Dentition - Neurological Assessment Level of Consciousness: Awake, Alert - Anesthesia Plan Anesthesia Risk discussed: Yes Anesthesia Plan: Verified ASA Class: III Anesthesia Type: MAC [facility] History I have reviewed the patient's past medical history: Yes Medical History: Reports:: Asthma, Atrial Fibrillation, Cancer (Esophageal), Carotid Stenosis, Congestive Heart Failure, Chronic Obstructive Pulmonary Disease (COPD), Coronary Artery Disease, Diabetes Mellitus Type 2, Hyperlipidemia, Hypertension, Internal Pacemaker, Palpitations Denies:: Diabetes Mellitus Type 1, MRSA *Have you ever received a pneumonia vaccine?: No *Have you received a flu vaccine this season?: No Other Medical History: Reports: Arthritis Anesthesia experience/problems:: nac Laterality Cases: Left: Total Hip Replacement, Other Other Surgeries: Yes: CABG, Cardiac Catheterization, Cardiac Surgery, Cholecystectomy, EGD, Open Heart Surgery, Pacemaker, Other (resection of ster num, nerve ablation for chest wall) Amputation: Yes (left middle finger) Fractures: Yes ((R) wrist, (R) fingers) - *Social History Educational Level: Completed GED/General Educational Development Smoking Status: Former smoker Tobacco Type: cigarettes # Packs/Day (cigarettes): 2 #Yrs smoked (if former smoker): 40 Smoking End Date: 2010 Alcohol Intake: former Alcohol Intake Frequency:: holidays/special occasions only Substance Use Type: denies use *Occupational Status:: retired Housing: house Household Members: spouse, children *Travel in the last 8 weeks: None Family Hx:: Bleeding Disorder, Coronary Artery Disease, Diabetes, Heart Attack, Hyperlipidemia, Hypertension, Stroke
--- NOTE | 2019-03-12 13:51 | Procedure Note ---
[facility] Procedure Note Procedure Note:: Upper Endoscopy Procedure Report: Esophagogastroduodenoscopy with percutaneous endoscopic gastrostomy tube placement Endoscopost: Gus Reynaga II, MD Referring Physician: Rogers Ang MD Date of Procedure: March 12, 2019 Equipment: Olympus GIF 180 standard upper endoscope Sedation: MAC sedation Indications: Mr. Bains is a 58-year-old gentleman who is here for failure to thrive after being diagnosed with stage IV esophageal cancer on January 25, 2019. He has had recurrent dysphagia. He has lost 60 pounds in the last 2 to 3 months. His CAT scan had shown involvement of the mediastinal and riya hepatis lymph nodes with metastatic disease to the liver and lungs. He is on hospice care. He is unable to swallow and has had recurrent dysphagia. The patient is unable to maintain oral nutrition. After discussion with the patient and family, EGD is performed for feeding tube placement/gastrostomy tube. Procedure: Prior to the procedure, a history and physical exam was performed, and patient's medications and allergies were reviewed. The risks, benefits and alternatives of the sedation and procedure were discussed with the patient. All questions were answered and informed consent was obtained. The patient was brought to the procedure room. Patient identification and proposed procedure were verified by the physician and the nurse. The patient was placed in a left lateral decubitus position and the scope was passed under direct vision. Throughout the procedure, the patient's blood pressure, pulse, and oxygen saturations were monitored continuously. The upper GI endoscopy was accomplished without difficulty. The patient tolerated the procedure well. Findings: The scope was passed directly into the upper esophagus and advanced to the third portion of the duodenum. Upon withdrawal, the duodenum was normal. The stomach was normal. There was the obstructive malignant esophageal cancer identified in the distal esophagus. The scope did eat readily passes region but there was stenosis and biopsies or dilation would yield very little. One-to-one transillumination and one-to-one extrinsic compression to the gastric lumen was identified and a site was marked on the skin for entry of the gastrostomy tube. The skin/percutaneous tissue and subcutaneous into the gastric lumen was anesthetized using 1% lidocaine. Next, the scalpel was used to make an incision and the needle catheter was placed through the abdominal wall percutaneously into the gastric lumen. The needle was removed and a guidewire was placed through the needle catheter. This wire was grasped with a snare endoscopically and pulled in a retrograde fashion out the oropharynx. Next, the pull 20 Japanese gastrostomy tube was attached to the guidewire and pulled in an antegrade fashion snugly against the gastric mucosa. The PEG tube was then assembled. Endoscopic placement was confirmed and was in the greater curvature and body of the stomach anterior wall and there was no heme identified. The patient remained hemodynamically stable. The remainder of the gastrostomy tube was assembled. Impression: 1. Esophageal cancer resulting in esophageal obstruction/malignant obstruction with inability to maintain oral nutrition status post gastrostomy tube placement Plan: I will discuss with patient and family. We will begin tube feeding soon and instruction on gastrostomy tube care.
--- NOTE | 2019-03-13 08:57 | Progress Note ---
Internal Medicine - PN: Subj *Date: 03/13/19 *Time: 08:57 Exam Vital signs and Labs for Last 24 Hours: Temp Pulse Resp BP Pulse Ox 98.4 F 83 18 147/68 H 99 03/13/19 08:00 03/13/19 08:00 03/13/19 08:00 03/13/19 08:00 03/13/19 08:00 Laboratory Results - last 24 hr 03/12/19 11:46: POC Glucose 165 H 03/12/19 16:26: POC Glucose 209 H 03/12/19 20:17: POC Glucose 156 H I & O for Last 24 hours: Intake & Output 03/10/19 03/11/19 03/12/19 03/13/19 11:59 11:59 11:59 11:59 Intake Total 1544 / 1544 2237 / 2237 Balance 1544 / 1544 223 / 2237 Weight 195 lb 195 lb 0.017 oz Assessment and Plan (1) Dysphagia Current visit: Yes Status: Acute Category: Medical Code(s): R13.10 - Dysphagia, unspecified (2) Esophageal cancer, stage IV Current visit: Yes Status: Acute Category: Medical Code(s): C15.9 - Malignant neoplasm of esophagus, unspecified (3) Abdominal pain Current visit: No Status: Acute Category: Medical Code(s): R10.9 - Unspecified abdominal pain (4) COPD (chronic obstructive pulmonary disease) Current visit: No Status: Chronic Category: Medical Code(s): J44.9 - Chronic obstructive pulmonary disease, unspecified (5) Type 2 diabetes mellitus Current visit: No Status: Chronic Qualifiers: Diabetes mellitus complication status: with circulatory complication Category: Medical Code(s): E11.9 - Type 2 diabetes mellitus without complications (6) Cardiac pacemaker in situ Current visit: No Status: Chronic Category: Medical Code(s): Z95.0 - Presence of cardiac pacemaker (7) Coronary arteriosclerosis Current visit: No Status: Chronic Category: Medical Code(s): I25.10 - Atherosclerotic heart disease of [place] coronary artery without angina pectoris (8) Diabetes mellitus Current visit: No Status: Chronic Category: Medical Code(s): E11.9 - Type 2 diabetes mellitus without complications (9) Hyperlipidemia Current visit: No Status: Chronic Qualifiers: Hyperlipidemia type: mixed hyperlipidemia Qualified Code(s): E78.2 - Mixed hyperlipidemia Category: Medical Code(s): E78.5 - Hyperlipidemia, unspecified (10) Hypertensive heart disease without heart failure Current visit: No Status: Chronic Category: Medical Code(s): I11.9 - Hypertensive heart disease without heart failure (11) Stented coronary artery Current visit: No Status: Chronic Category: Surgical Code(s): Z95.5 - Presence of coronary angioplasty implant and graft
--- NOTE | 2019-03-13 12:07 | Discharge Summary ---
General - General Admission date:: 03/11/19 Discharge date: 03/13/19 HPI HPI: Mr. Bains is a 58-year-old male with a history of esophageal cancer. He is currently cared for by hospice. He states he has had issues off and on with vomiting and difficulty swallowing. For the past 3 days he has been unable to swallow any liquids or solids. He presented to the office of [facility] yesterday and was seen by Dr. Coombs. He was felt to be dehydrated and sent to the emergency room for evaluation. In the office, his white blood cell count was 18.9. A CT was done in the emergency room and according to the ER note, there was total obstruction of the esophagus. Official CT results are still pending. The patient was admitted and started on IV fluids, antiemetics, and pain control. 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 Ronnell was then consulted, who put in a PEG tube in for him. Family and patient was given PEG tube teachings. Patient is comfortable with the tube feeds. He is currently on TwoCal HN 260 mL 5 times a day. However his pain was not controlled with IV Dilaudid and increase fentanyl patch. On 03/13/2019, patient mentions that he needs to leave for [place] on 03/14/2019 as this is very important for him. He also mentions that he is going to [place] to show his where he is going to have his ashes cremated. He is currently on hospice and the family mentions that they have worked up with hospice to follow-up with him at [place]. Since he cannot take anything by mouth, I have changed his pain medication regimen today. I have increased his fentanyl patch to 75 mcg take it every 72 hours for pain and I also have changed him to Roxanol 20 mg/mL take 1 mL every 2 hours as needed for pain given by G-tube. I have given 1 week supply for these pain medication. Strongly advised family to call hospice and as if in need of any pain medication. I have also given him Phenergan and Zofran upon discharge. I have advised him not to travel in this condition. However he mentions that this is one of his last wishes. In order to honor his wishes, I made all arrangement for his pain and nausea control. Nursing help on this patient's arrangement for pain control greatly appreciated. Risk and benefits discussed extensively with family and the patient. Objective Vital signs: Temp Pulse Resp BP Pulse Ox 98.4 F 83 18 147/68 H 99 03/13/19 08:00 03/13/19 08:00 03/13/19 08:00 03/13/19 08:00 03/13/19 08:00 no acute distress (has chronic pain 2/2 to his metastatic cancer) - *Routine HEENT Exam Head: Present: normocephalic Eye: Present: EOMI, PERRL ENT: Present: mucous membranes moist - *Routine Neck Exam Present: supple, full ROM - *Routine Respiratory Exam Present: CTA bilaterally. Absent: accessory muscle use - *Routine Cardiovascular Exam Present: RRR - *Routine Abdominal Exam Present: soft, normoactive bowel sounds, tenderness (moderate; PED tube in place). Absent: distended - *Routine Extremities Exam Absent: cyanosis, clubbing, edema - *Routine Skin Exam Present: intact. Absent: cyanosis, erythema - *Routine Neurological Exam Present: alert, oriented X3 Results Labs on day of discharge: Labs from last 24 hours 03/13/19 03/12/19 03/12/19 11:15 20:17 16:26 POC Glucose 221 H 156 H 209 H 03/12/19 11:46 POC Glucose 165 H DS: Diagnosis - Discharge Diagnosis (1) Dysphagia Status: Acute (2) Esophageal cancer, stage IV Status: Acute (3) Abdominal pain Status: Acute (4) COPD (chronic obstructive pulmonary disease) Status: Chronic (5) Type 2 diabetes mellitus Status: Chronic (6) Cardiac pacemaker in situ Status: Chronic (7) Coronary arteriosclerosis Status: Chronic (8) Diabetes mellitus Status: Chronic (9) Hyperlipidemia Status: Chronic (10) Hypertensive heart disease without heart failure Status: Chronic (11) Stented coronary artery Status: Chronic Discharge Plan - Patient Discharge Instructions ACTIVITY: Continue current activity DIET: continue same diet Patient Instructions: DI for Esophageal Cancer, DI for Esophageal Dysphagia - Follow up Plan Follow up with: Margy Ang MD [Primary Care Provider] - Disposition: Hospice - Home Home Medications: Home Medications Medication Instructions Recorded Confirmed Type atorvastatin 40 mg tablet 40 mg PO HS tab 08/18/17 03/11/19 History fenofibrate nanocrystallized 145 145 mg PO DAILY tab 08/18/17 03/11/19 History mg tablet ipratropium 20 mcg-albuterol 100 1 puff INHALATION QID PRN 08/18/17 03/11/19 History mcg/actuation mist for inhalation lisinopril 40 mg tablet 40 mg PO BID tab 08/18/17 03/11/19 History nitroglycerin 0.4 mg sublingual 0.4 mg SUBLINGUAL Q5MINP PRN 08/18/17 03/12/19 History tablet triamterene 75 1 tab PO DAILY 08/18/17 03/11/19 History mg-hydrochlorothiazide 50 mg tablet Allopurinol [Allopurinol 300mg 300 mg PO DAILY 09/04/18 03/11/19 History tablet] Gabapentin [Gabapentin 300mg Cap] 600 mg PO HS 09/04/18 03/11/19 History Hydrocodone/Acetaminophen 1 each PO TIDP PRN 09/04/18 03/11/19 History [Hydrocodone-Acetamin 7.5-325] Insulin Regular, Human [Humulin R 115 unit SQ BID 09/04/18 03/11/19 History U-500] Carvedilol [Carvedilol 25mg Tab] 50 mg PO BID 01/22/19 03/11/19 History Clopidogrel Bisulfate [Plavix 75mg 75 mg PO DAILY 01/22/19 03/11/19 History Tab] Rivaroxaban [Xarelto 20mg Tablet] 20 mg PO QPMWM 01/22/19 03/12/19 History Gabapentin [Gabapentin 300mg Cap] 300 mg PO 0900,1200 01/23/19 03/11/19 History Sucralfate [Carafate] 1 gm PO QID #120 oral.susp 01/26/19 03/11/19 Rx Sennosides 8.6 mg PO HS 03/11/19 03/11/19 History fentaNYL [fentaNYL 25mcg/patch] 25 mcg TD Q72H 03/11/19 03/11/19 History raNITIdine HCl [Ranitidine HCl] 150 mg PO BID 03/11/19 03/11/19 History Neomycin/Polymyxin B Sulf/Hc 3 drops OT TID 03/12/19 03/12/19 History [Upcvnfap-Mwytrgalt-FZ Otic Susp 10mL] Polyethylene Glycol 3350 [Gavilax] 17 gm PO DAILYP PRN 03/12/19 03/12/19 History Prescriptions/Medication Reconciliation: New Morphine Sulfate [Roxanol 20mg/mL 1mL oral solution UDC] 20 mg PO Q1H PRN 7 Days #84 ml PRN Reason: Moderate Pain Continued atorvastatin 40 mg tablet 40 mg PO HS tab ipratropium 20 mcg-albuterol 100 mcg/actuation mist for inhalation 1 puff INHALATION QID PRN PRN Reason: bronchitis fenofibrate nanocrystallized 145 mg tablet 145 mg PO DAILY tab lisinopril 40 mg tablet 40 mg PO BID tab nitroglycerin 0.4 mg sublingual tablet 0.4 mg SUBLINGUAL Q5MINP PRN PRN Reason: Chest Pain triamterene 75 mg-hydrochlorothiazide 50 mg tablet 1 tab PO DAILY Insulin Regular, Human [Humulin R U-500] 115 unit SQ BID Clopidogrel Bisulfate [Plavix 75mg Tab] 75 mg PO DAILY Carvedilol [Carvedilol 25mg Tab] 50 mg PO BID Rivaroxaban [Xarelto 20mg Tablet] 20 mg PO QPMWM Gabapentin [Gabapentin 300mg Cap] 300 mg PO 0900,1200 Sucralfate [Carafate] 1 gm PO QID #120 oral.susp Sennosides 8.6 mg PO HS raNITIdine HCl [Ranitidine HCl] 150 mg PO BID Neomycin/Polymyxin B Sulf/Hc [Bbcownhk-Qbbbsdydc-QZ Otic Susp 10mL] 3 drops OT TID Polyethylene Glycol 3350 [Gavilax] 17 gm PO DAILYP PRN PRN Reason: Constipation Allopurinol [Allopurinol 300mg tablet] 300 mg PO DAILY Gabapentin [Gabapentin 300mg Cap] 600 mg PO HS Discontinued Hydrocodone/Acetaminophen [Hydrocodone-Acetamin 7.5-325] 1 each PO TIDP PRN PRN Reason: PAIN fentaNYL [fentaNYL 25mcg/patch] 25 mcg TD Q72H - Problem Reconciliation Problems Reviewed?: Yes
== END 2019-03-13 15:35 | disposition hospice, home (50) ==
LOC: ER 15:09 → 2ND 15:09
PROVIDERS: ADMIT Family Medicine; ATTEND Family Medicine
CPT/HCPCS: 36415; 71020; 71046; 74177; 80053; 82150; 82962; 83605; 83690; 83735; 85007; 85025; 85610; 87040; 96365; 96375; 99284; G0378; J2405; Q9967

== ENCOUNTER 2019-03-28 01:27 | Observation (INO) ==
[2019-03-28 01:56] LABS: Basophils # 0.1 K/mm3 (0-0.2); Basophils % 0.4 % (0.1-2.0); Eosinophils # 0.2 K/mm3 (0.0-0.4); Eosinophils % 0.8 % (0.1-12.0); Hematocrit 47.1 % (42.0-52.0); Hemoglobin 14.3 g/dL (14.1-18.0); Lymphocytes # 1.2 K/mm3 (0.7-4.5); Lymphocytes % 5.7 % (10-50); Mean Corpuscular HGB Conc 30.3 g/dL (31.8-35.4); Mean Corpuscular Volume 96.8 fl (80-94); Mean Platelet Volume 8.2 fl (7.4-10.4); Monocytes # 0.8 K/mm3 (0.1-1.0); Monocytes % 4.2 % (1.7-9.3); Neutrophils # 17.6 K/mm3 (1.8-7.8); Neutrophils % 88.8 % (37.0-80.0); Platelet Count 401 K/mm3 (142-424); Red Blood Count 4.86 M/mm3 (4.60-6.20); Red Cell Distribution Width 16.6 % (11.5-17.5); White Blood Count 19.8 K/mm3 (4.8-10.8)
[2019-03-28 02:04] LABS: Hypochromasia 3+; Lymphocytes % 9 % (10-50); Macrocytosis 2+; Monocytes % 1 % (2-9); Neutrophils % 83 % (42-76); Total Cells Counted 100
[2019-03-28 02:05] LABS: Albumin Level 3.3 gm/dL (3.4-5.0); Albumin/Globulin Ratio 0.6 (1.1-1.8); Anion Gap 15.4 mEq/L (5-15); Calcium 10.4 mg/dL (8.5-10.1); Globulin 5.8 gm/dl (1.3-3.2); Total Protein,Serum 9.1 gm/dL (6.4-8.2)
--- NOTE | 2019-03-28 02:27 | Emergency Department Note ---
ED Disposition Clinical Impression: Metastatic cancer, Esophageal cancer, Hematemesis Disposition: Still a Patient Condition on Discharge: Fair Instructions: DI for Nausea -- Adult Referrals: Margy Ang MD [Primary Care Provider] - Time of Disposition: 04:05 - Critical Care Critical Care Time: No Attestation: On 03/28/19, the high probability of a clinically significant, sudden or life threatening deterioration of the following system(s) required my full and direct attention, intervention and personal management. The time I documented below is in addition to time spent performing reported procedures but includes the following listed in this critical care notation. Medical Decision Making - Medical Records Medical records reviewed: Yes: I reviewed the patient's medical records. - Arias Inquiry Pt receiving controlled substance: No Arias was queried for this patient: No Vital Signs: 03/28/19 01:37 Temperature 98.2 F Temperature Source Oral Pulse Rate [Right Radial] 105 H Respiratory Rate 20 Blood Pressure [Right Arm] 146/85 H Blood Pressure Mean [Right Arm] 105 02 Sat by Pulse Oximetry 98 Oxygen Delivery Method Room Air - Lab Data Lab results reviewed: Yes: I reviewed the patient's lab results. Lab Results 03/28/19 01:38: WBC 19.8 H, RBC 4.86, Hgb 14.3, Hct 47.1, MCV 96.8 H, MCH 29.4, MCHC 30.3 L, RDW 16.6, Plt Count 401, MPV 8.2, Neut % (Auto) 88.8 H, Lymph % (Auto) 5.7 L, Dunn % (Auto) 4.2, Eos % (Auto) 0.8, Baso % (Auto) 0.4, Neut # (Auto) 17.6 H, Lymph # (Auto) 1.2, Dunn # (Auto) 0.8, Eos # (Auto) 0.2, Baso # (Auto) 0.1, Total Counted 100, Neutrophils % (Manual) 83 H, Band Neutrophils % 7.0, Lymphocytes % (Manual) 9 L, Monocytes % (Manual) 1 L, Hypersegmented Neuts 2+, Platelet Estimate Normal, Hypochromasia 3+, Macrocytosis 2+ 03/28/19 01:38: Sodium 133 L, Potassium 5.4 H, Chloride 96 L, Carbon Dioxide 27, Anion Gap 15.4 H, BUN 46 H, Creatinine 2.55 H, Estimated Creat Clear 40, Estimated GFR 26 L, Est GFR ( Amer) 31 L, Glucose 205 H, Calcium 10.4 H, Total Bilirubin 1.0, AST 64 H, ALT 29, Alkaline Phosphatase 895 H, Total Protein 9.1 H D, Albumin 3.3 L, Globulin 5.8 H, Albumin/Globulin Ratio 0.6 L, Amylase 18 L, Lipase 78 Result diagrams: 03/28/19 01:38 03/28/19 01:38 Orders (Tests/Meds): ED MEDICATIONS Generic Name Dose Route Start Last Admin Trade Name Freq PRN Reason Stop Dose Admin Sodium Chloride 1,000 mls @ 999 mls/hr 03/28/19 01:45 03/28/19 01:49 Sod Chlor 0.9% 1000ml Bag IV 03/28/19 02:45 999 mls/hr .Q1H1M JOVANI Administration Sodium Chloride 8 ml 03/28/19 01:45 Sodium Chloride 0.9% 10ml Vial IV 04/27/19 01:44 NEEDED PRN dilute pepcid Discontinued Medications Generic Name Dose Route Start Last Admin Trade Name Freq PRN Reason Stop Dose Admin Famotidine 20 mg 03/28/19 01:45 03/28/19 01:49 Pepcid 20mg/2ml Vial IV 03/28/19 01:46 20 mg ONCE ONE Administration Metoclopramide HCl 10 mg 03/28/19 01:45 03/28/19 01:49 Reglan 10mg/2ml Vial IVP 03/28/19 01:46 10 mg ONCE ONE Administration Morphine Sulfate 4 mg 03/28/19 01:45 03/28/19 01:49 Morphine 4mg/Ml Syringe IV 03/28/19 01:46 4 mg ONCE ONE Administration Ondansetron HCl 4 mg 03/28/19 01:44 03/28/19 01:49 Zofran 4mg/2ml Vial IV 03/28/19 01:45 4 mg ONCE ONE Administration ORDERS Category Date Time Status CT abdomen pelvis wo con Stat Cat Scan 03/28/19 02:[address] chest wo con Stat Cat Scan 03/28/19 02:21 Taken General Adult HPI - General Chief complaint: Nausea/Vomiting/Diarrhea Stated complaint: Vomiting blood,has feeding tube Time Seen by Provider: 03/28/19 02:24 Mode of Arrival: Wheelchair Source of Information: Patient, Relative Limitations: No Limitations Description of Symptoms (Recalled from ER Triage Doc. by RN): pt presents to ed with c/o vomiting blood that began tonight. pt is an esophageal cancer patient with stage 4 mets to multiple areas of body. pt has a g-tube. pt has not start ed hospice due to his recent travel to [place] and his last wish. - History of Present Illness HPI narrative: bright red blood from his mouth tonight, estimated by as two small cups of brb. No melena. No pain. Has esophageal cancer, no stents. Mets are widespread. - Related Data Home Medications Medication Instructions Recorded Confirmed atorvastatin 40 mg tablet 40 mg PO HS tab 08/18/17 03/11/19 fenofibrate nanocrystallized 145 145 mg PO DAILY tab 08/18/17 03/11/19 mg tablet ipratropium 20 mcg-albuterol 100 1 puff INHALATION QID PRN 08/18/17 03/11/19 mcg/actuation mist for inhalation lisinopril 40 mg tablet 40 mg PO BID tab 08/18/17 03/11/19 nitroglycerin 0.4 mg sublingual 0.4 mg SUBLINGUAL Q5MINP PRN 08/18/17 03/12/19 tablet triamterene 75 1 tab PO DAILY 08/18/17 03/11/19 mg-hydrochlorothiazide 50 mg tablet Allopurinol [Allopurinol 300mg 300 mg PO DAILY 09/04/18 03/11/19 tablet] Gabapentin [Gabapentin 300mg Cap] 600 mg PO HS 09/04/18 03/11/19 Insulin Regular, Human [Humulin R 115 unit SQ BID 09/04/18 03/11/19 U-500] Carvedilol [Carvedilol 25mg Tab] 50 mg PO BID 01/22/19 03/11/19 Clopidogrel Bisulfate [Plavix 75mg 75 mg PO DAILY 01/22/19 03/11/19 Tab] Rivaroxaban [Xarelto 20mg Tablet*] 20 mg PO QPMWM 01/22/19 03/12/19 Gabapentin [Gabapentin 300mg Cap] 300 mg PO 0900,1200 01/23/19 03/11/19 Sennosides 8.6 mg PO HS 03/11/19 03/11/19 raNITIdine HCl [Ranitidine HCl] 150 mg PO BID 03/11/19 03/11/19 Neomycin/Polymyxin B Sulf/Hc 3 drops OT TID 03/12/19 03/12/19 [Klvuvpxv-Djvkqezjw-UT Otic Susp 10mL] Polyethylene Glycol 3350 [Gavilax] 17 gm PO DAILYP PRN 03/12/19 03/12/19 Previous Rx's Medication Instructions Recorded Sucralfate [Carafate] 1 gm PO QID #120 oral.susp 01/26/19 Morphine Sulfate [Roxanol 20mg/mL 20 mg PO Q2HP PRN 7 Days #84 ml 03/13/19 1mL oral solution UDC] Ondansetron HCl [Zofran 4mg/5mL 4 mg PO TID PRN #30 udc 03/13/19 oral soln UDC] Oxycodone HCl [Oxycodone (IR) 10mg 20 mg PO Q4H 7 Days #84 tab 03/13/19 Tab] Promethazine HCl [Phenergan 6.25 mg PO TID 7 Days #30 syrup 03/13/19 12.5mg/10mL UDC] fentaNYL [fentaNYL 75mcg Patch] 75 mcg TD Q72H patch.td72 03/13/19 Allergies Allergy/AdvReac Type Severity Reaction Status Date / Time metformin Allergy Severe QUIT Verified 03/28/19 01:44 BREATHING Penicillins Allergy Intermediate Hives Verified 03/28/19 01:44 egg AdvReac Mild Verified 03/28/19 01:44 [facility] History - Hepatitis A Screen Drug use history?: No High risk sexual behaviors?: No History of sexually transmitted infection?: No Currently employed?: No Childcare worker?: No Do you have indoor plumbing?: Yes Do you have electricity?: Yes Attestation statement:: This patient has been screened for Hepatitis A risk factors. I have reviewed the patient's past medical history: Yes Medical History: Reports:: Asthma, Atrial Fibrillation, Cancer (Esophageal stage 4), Carotid Stenosis, Congestive Heart Failure, Chronic Obstructive Pulmonary Disease (COPD), Coronary Artery Disease, Diabetes Mellitus Type 2, Hyperlipidemia, Hypertension, Internal Pacemaker, Palpitations Denies:: Diabetes Mellitus Type 1, MRSA Other Medical History: Reports: Arthritis Laterality Cases: Left: Total Hip Replacement, Other Other Surgeries: Yes: CABG, Cardiac Catheterization, Cardiac Surgery, Cholecystectomy, EGD, Open Heart Surgery, Pacemaker, Other (resection of sternum, nerve ablation for chest wall) Amputation: Yes (left middle finger) Fractures: Yes ((R) wrist, (R) fingers) - Social History Smoking Status: Former smoker Tobacco Type: cigarettes # Packs/Day (cigarettes): 2 #Yrs smoked (if former smoker): 40 Alcohol Intake: never Alcohol Intake Frequency:: holidays/special occasions only Substance Use Type: denies use Occupational Status: retired Housing: house Household Members: spouse, children Family Hx:: Bleeding Disorder, Coronary Artery Disease, Diabetes, Heart Attack, Hyperlipidemia, Hypertension, Stroke ROS Obtained: Yes All systems reviewed & no additional complaints - Constitutional Constitutional: Denies chills, Denies fever(s), Denies lethargy, Denies weakness - Cardiovascular Cardiovascular: Denies chest pain, Denies chest pain at rest, Denies diaphoresis, Denies dyspnea - Respiratory Respiratory: No chest congestion, No cough, No dyspnea - Gastrointestinal Gastrointestingal: Reports: vomiting blood. Denies: abdominal pain - Integumentary/Breasts Skin/Breast: Denies rash - Neurologic Neurologic: Denies headache(s), Denies numbness, Denies tingling/numbness/burning sensations, Denies seizure-like activity, Denies sensory deficit, Denies weakness Physical Exam - General General appearance: alert, in no apparent distress - Head Head exam: atraumatic, normocephalic, normal inspection - Eye Eye exam: Present: normal appearance, PERRL, EOMI - ENT ENT exam: Present: normal exam, normal oropharynx, mucous membranes moist, TM's normal bilaterally, normal external ear exam - Neck Neck exam: Present: normal inspection, full ROM, trachea midline. Absent: m eningismus, lymphadenopathy - Respiratory Respiratory exam: Present: normal lung sounds bilaterally. Absent: respiratory distress - Cardiovascular Cardiovascular exam: Present: normal rhythm, tachycardia - Abdominal Exam Abdominal exam: Present: soft, tenderness. Absent: distention Abdominal tenderness: Present: LLQ Comment: gastrostomy tube in place, no blood noted. Tube appears in good position - Extremities Exam Extremities exam: Present: normal inspection, full ROM, normal capillary refill. Absent: calf tenderness - Back Exam Back exam: Present: normal inspection. Absent: tenderness - Neurological Exam Neurological exam: Present: alert, oriented X3 - Psychiatric Psychiatric exam: Present: normal affect, normal mood - Skin Skin exam: Present: warm, dry, intact, normal color - Lymphatic Lymphatic Findings: no adenopathy
[2019-03-28 06:49] LABS: Basophils # 0.1 K/mm3 (0-0.2); Basophils % 0.3 % (0.1-2.0); Eosinophils # 0.2 K/mm3 (0.0-0.4); Eosinophils % 1.2 % (0.1-12.0); Hematocrit 41.9 % (42.0-52.0); Hemoglobin 12.5 g/dL (14.1-18.0); Lymphocytes % 5.7 % (10-50); Mean Corpuscular HGB Conc 29.9 g/dL (31.8-35.4); Mean Corpuscular Volume 97.9 fl (80-94); Mean Platelet Volume 7.9 fl (7.4-10.4); Monocytes # 0.6 K/mm3 (0.1-1.0); Monocytes % 3.3 % (1.7-9.3); Neutrophils # 15.3 K/mm3 (1.8-7.8); Neutrophils % 89.5 % (37.0-80.0); Platelet Count 366 K/mm3 (142-424); Red Blood Count 4.28 M/mm3 (4.60-6.20); White Blood Count 17.1 K/mm3 (4.8-10.8)
[2019-03-28 06:55] LABS: Anion Gap 14.3 mEq/L (5-15); Calcium 9.6 mg/dL (8.5-10.1)
--- NOTE | 2019-03-28 09:41 | Pharmacy Consult Notes ---
[facility] Pharmacy VTE Monitoring - Patient Demographics Admission date: 03/28/19 Report Date: 03/28/19 Time: 09:40 Allergies/Adverse Reactions: Patient Allergies metformin Allergy (Severe, Verified 03/28/19 01:44) QUIT BREATHING Penicillins Allergy (Intermediate, Verified 03/28/19 01:44) Hives egg Adverse Reaction (Mild, Verified 03/28/19 01:44) Height: 1.73 m Weight: 85.956 kg Patient Problems: Current Active Problems Metastatic cancer (Acute) Esophageal cancer (Acute) Hematemesis (Acute) - VTE Risk Labs: VTE Related Lab Results Hgb 12.5 g/dL (14.1-18.0) L D 03/28/19 06:36 Hct 41.9 % (42.0-52.0) L 03/28/19 06:36 Plt Count 366 K/mm3 (142-424) 03/28/19 06:36 BUN 45 mg/dL (7-18) H 03/28/19 06:36 Creatinine 2.31 mg/dL (0.70-1.30) H 03/28/19 06:36 Estimated Creat Clear 41 mL/min (50-200) 03/28/19 06:36 VTE Score: 6 VTE Risk Level: Moderate Risk - Prophylaxis VTE Prophylaxis Ordered?: Yes Types of VTE Prophylaxis: TEDS Knee High Location of Applied Device: Bilateral Lower Extremeties
--- NOTE | 2019-03-28 13:00 | History & Physical Report ---
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 He has esophageal obstruction and has a PEG tube in place. Yesterday evening he and his returned from a trip to [place]. Upon arriving at home he vomited about 2 cups of brownish looking blood. He came to the emergency room at [facility] and was admitted. The patient has been evaluated by Dr. Gus Renyaga, social science professor and by Dr. Marquis, oncologist. When Dr. Mohamud saw him about a month ago she told him that he had about 6 months to live. He had dreamed of a trip to [place] and has successfully accomplished that. His tube feedings have consisted of 355 matthew per 8 ounces of Jevity, 3 or 4 feedings a day. 6 feedings were too many. Patient has been followed by hospice and they are supposed to get back in contact with them after the trip. The patient has been bothered by constipation. He has had no other times of nausea and vomiting. [facility] History Medical History: Reports:: Asthma, Atrial Fibrillation, Cancer (Esophageal stage 4), Carotid Stenosis, Congestive Heart Failure, Chronic Obstructive Pulmonary Disease (COPD), Coronary Artery Disease, Diabetes Mellitus Type 2, Hyperlipidemia, Hypertension, Internal Pacemaker, Palpitations Denies:: Diabetes Mellitus Type 1, MRSA *Have you ever received a pneumonia vaccine?: No *Have you received a flu vaccine this season?: No (Does not want) Other Medical History: Reports: Arthritis Laterality Cases: Left: Total Hip Replacement, Other Other Surgeries: Yes: CABG (Subsequent sternotomy due to osteomyelitis. Subsequent plastic repair.), Cardiac Catheterization, Cardiac Surgery, Cholecystectomy, EGD, Open Heart Surgery, Pacemaker, Other (resection of sternum, nerve ablation for chest wall) Amputation: Yes (left middle finger) Fractures: Yes ((R) wrist, (R) fingers) - *Social History Educational Level: Attended High School Smoking Status: Former smoker Tobacco Type: cigarettes # Packs/Day (cigarettes): 2 #Yrs smoked (if former smoker): 40 Alcohol Intake: never Alcohol Intake Frequency:: holidays/special occasions only Substance Use Type: denies use *Occupational Status:: retired Housing: house Household Members: spouse, children *Travel in the last 8 weeks: None Family Hx:: Bleeding Disorder, Coronary Artery Disease, Diabetes, Heart Attack, Hyperlipidemia, Hypertension, Stroke Review of Systems - Constitutional Reports weakness, Reports weight loss - Eyes Denies change in vision - ENT Denies abnormal hearing, Denies dizziness - *Cardiovascular Reports chest pain (Chronic), Denies shortness of breath, Denies irregular heart rhythm, Denies leg swelling - *Respiratory Denies shortness of breath - *Gastrointestinal Reports coffee ground vomit, Reports constipation - *Genitourinary Denies difficulty urinating - *Musculoskeletal Reports back pain, Denies joint pain - *Neurologic Reports tremor(s), Denies headache(s), Denies numbness, Denies tingling/numbness/burning sensations, Denies seizure-like activity, Denies sensory deficit, Denies weakness - Psychiatric Reports abnormal sleep pattern (CPAP for HITESH), Denies thoughts of hurting/killing yourself - Hematologic/Lymphatic Denies easy bleeding Meds Home Medications Medication Instructions Recorded Confirmed Type triamterene 75 1 tab PO DAILY 08/18/17 03/28/19 History mg-hydrochlorothiazide 50 mg tablet Gabapentin [Gabapentin 300mg Cap] 600 mg PO BID 09/04/18 03/28/19 History Sennosides 8.6 mg PO HS 03/11/19 03/28/19 History Neomycin/Polymyxin B Sulf/Hc 3 drops OT TID 03/12/19 03/28/19 History [Tibhynsv-Gcjfvtymm-VV Otic Susp 10mL] Polyethylene Glycol 3350 [Gavilax] 17 gm PO DAILYP PRN 03/12/19 03/28/19 History Ondansetron HCl [Zofran 4mg/5mL 4 mg PO TID PRN #30 udc 03/13/19 03/28/19 Rx oral soln UDC] Oxycodone HCl [Oxycodone (IR) 10mg 20 mg PO Q4H PRN 03/28/19 03/28/19 History Tab] Promethazine HCl [Phenergan 6.25 mg PO TID PRN 03/28/19 03/28/19 History 12.5mg/10mL UDC] fentaNYL [fentaNYL 75mcg Patch] 75 mcg TD Q72H 03/28/19 03/28/19 History Allergies Allergy/AdvReac Type Severity Reaction Status Date / Time metformin Allergy Severe QUIT Verified 03/28/19 01:44 BREATHING Penicillins Allergy Intermediate Hives Verified 03/28/19 01:44 egg AdvReac Mild Verified 03/28/19 01:44 Exam Vital signs and Labs for Last 24 Hours: Temp Pulse Resp BP Pulse Ox 97.8 F 83 18 108/56 L 96 03/28/19 07:24 03/28/19 07:24 03/28/19 07:24 03/28/19 07:24 03/28/19 08:00 Laboratory Results - last 24 hr 03/28/19 01:38: WBC 19.8 H, RBC 4.86, Hgb 14.3, Hct 47.1, MCV 96.8 H, MCH 29.4, MCHC 30.3 L, RDW 16.6, Plt Count 401, MPV 8.2, Neut % (Auto) 88.8 H, Lymph % (Auto) 5.7 L, [place] % (Auto) 4.2, Eos % (Auto) 0.8, Baso % (Auto) 0.4, Neut # (Auto) 17.6 H, Lymph # (Auto) 1.2, [place] # (Auto) 0.8, Eos # (Auto) 0.2, Baso # (Auto) 0.1, Total Counted 100, Neutrophils % (Manual) 83 H, Band Neutrophils % 7.0, Lymphocytes % (Manual) 9 L, Monocytes % (Manual) 1 L, Hypersegmented Neuts 2+, Platelet Estimate Normal, Hypochromasia 3+, Macrocytosis 2+ 03/28/19 01:38: Sodium 133 L, Potassium 5.4 H, Chloride 96 L, Carbon Dioxide 27, Anion Gap 15.4 H, BUN 46 H, Creatinine 2.55 H, Estimated Creat Clear 40, Estimated GFR 26 L, Est GFR ( Amer) 31 L, Glucose 205 H, Calcium 10.4 H, Total Bilirubin 1.0, AST 64 H, ALT 29, Alkaline Phosphatase 895 H, Total Protein 9.1 H D, Albumin 3.3 L, Globulin 5.8 H, Albumin/Globulin Ratio 0.6 L, Amylase 18 L, Lipase 78 03/28/19 06:36: WBC 17.1 H, RBC 4.28 L, Hgb 12.5 L D, Hct 41.9 L, MCV 97.9 H, MCH 29.3, MCHC 29.9 L, RDW 17.0, Plt Count 366, MPV 7.9, Neut % (Auto) 89.5 H, Lymph % (Auto) 5.7 L, [place] % (Auto) 3.3, Eos % (Auto) 1.2, Baso % (Auto) 0.3, Neut # (Auto) 15.3 H, Lymph # (Auto) 1.0, [place] # (Auto) 0.6, Eos # (Auto) 0.2, Baso # (Auto) 0.1 03/28/19 06:36: Sodium 135 L, Potassium 5.3 H, Chloride 100, Carbon Dioxide 26, Anion Gap 14.3, BUN 45 H, Creatinine 2.31 H, Estimated Creat Clear 41, Estimated GFR 29 L, Est GFR ( Amer) 35 L, Glucose 191 H, Calcium 9.6 I & O for Last 24 hours: Intake & Output 03/26/19 03/27/19 03/28/19 03/29/19 11:59 11:59 11:59 11:59 Intake Total 0 / 0 Balance 0 / 0 Weight 189 lb 8 oz - Constitutional no acute distress - *Routine HEENT Exam Head: Present: normocephalic Eye: Present: PERRL ENT: Present: mucous membranes dry - *Routine Neck Exam Present: supple - Routine Chest/Breast/Axilla Exam Comments: Chest is abnormal due to previous sternotomy with subsequent infection and removal of sternum with thin plastic repair. Right pectoral muscle is smaller due to the repair. With inspiration there can be popping due to the sternal defect. - *Routine Respiratory Exam Present: decreased breath sounds. Absent: respiratory distress, wheezes - *Routine Cardiovascular Exam Present: RRR (Occasional ectopics, paced rhythm.) - *Routine Abdominal Exam Present: soft, ostomy (PEG in place with some brownish drainage around it. Tube clear.). Absent: tenderness - *Routine Rectal Exam Patient deferred: visual exam Comments: Rectal exam was not performed, there is a 1-2 sacral decubitus developing. - *Routine Extremities Exam Absent: edema (Some muscle wasting.) - Routine Back/Spine/Pelvis Exam Back/Spine: Present: kyphosis - *Routine Skin Exam Present: lesions (Sacral lesion as described above.) - *Routine Neurological Exam Present: alert, oriented X3 Assessment and Plan (1) Esophageal cancer Current visit: Yes Status: Acute Category: Medical Code(s): C15.9 - Malignant neoplasm of esophagus, unspecified (2) Hematemesis Current visit: Yes Status: Acute Category: Medical Code(s): K92.0 - Hematemesis (3) Metastatic cancer Current visit: Yes Status: Acute Category: Medical Code(s): C79.9 - Secondary malignant neoplasm of unspecified site (4) Abnormal CT of liver Current visit: No Status: Acute Category: Medical Code(s): R93.2 - Abnormal findings on diagnostic imaging of liver and biliary tract (5) Abnormal CT scan of lung Current visit: No Status: Acute Category: Medical Code(s): R91.8 - Other nonspecific abnormal finding of lung field (6) Abnormal CT scan, esophagus Current visit: No Status: Acute Category: Medical Code(s): R93.3 - Abnormal findings on diagnostic imaging of other parts of digestive tract - Assessment and plan all Dx Assessment and Plan for all problems:: See orders. Resume Jevity. Recheck H&H.
[2019-03-28 13:38] LABS: Basophils # 0.1 K/mm3 (0-0.2); Basophils % 0.5 % (0.1-2.0); Eosinophils # 0.1 K/mm3 (0.0-0.4); Eosinophils % 0.7 % (0.1-12.0); Hematocrit 41.2 % (42.0-52.0); Hemoglobin 12.2 g/dL (14.1-18.0); Lymphocytes # 1.6 K/mm3 (0.7-4.5); Lymphocytes % 9.9 % (10-50); Mean Corpuscular HGB Conc 29.7 g/dL (31.8-35.4); Mean Corpuscular Volume 99.6 fl (80-94); Mean Platelet Volume 8.3 fl (7.4-10.4); Monocytes # 0.8 K/mm3 (0.1-1.0); Monocytes % 4.7 % (1.7-9.3); Neutrophils # 13.7 K/mm3 (1.8-7.8); Neutrophils % 84.2 % (37.0-80.0); Platelet Count 343 K/mm3 (142-424); Red Blood Count 4.14 M/mm3 (4.60-6.20); Red Cell Distribution Width 17.3 % (11.5-17.5); White Blood Count 16.3 K/mm3 (4.8-10.8)
[2019-03-28 14:00] LABS: Lymphocytes % 10 % (10-50); Monocytes % 4 % (2-9); Neutrophils % 83 % (42-76); Total Cells Counted 100
[2019-03-29 05:45] LABS: Basophils # 0.1 K/mm3 (0-0.2); Basophils % 0.4 % (0.1-2.0); Eosinophils # 0.2 K/mm3 (0.0-0.4); Eosinophils % 1.4 % (0.1-12.0); Hematocrit 38.4 % (42.0-52.0); Hemoglobin 11.8 g/dL (14.1-18.0); Lymphocytes # 1.3 K/mm3 (0.7-4.5); Mean Corpuscular HGB Conc 30.8 g/dL (31.8-35.4); Mean Corpuscular Volume 95.3 fl (80-94); Mean Platelet Volume 8.5 fl (7.4-10.4); Monocytes # 0.7 K/mm3 (0.1-1.0); Monocytes % 4.6 % (1.7-9.3); Neutrophils # 12.2 K/mm3 (1.8-7.8); Neutrophils % 84.6 % (37.0-80.0); Platelet Count 307 K/mm3 (142-424); Red Blood Count 4.03 M/mm3 (4.60-6.20); White Blood Count 14.5 K/mm3 (4.8-10.8)
[2019-03-29 05:51] LABS: Anion Gap 10.7 mEq/L (5-15); Calcium 9.1 mg/dL (8.5-10.1)
--- NOTE | 2019-03-29 08:22 | Progress Note ---
Internal Medicine - PN: Subj *Date: 03/29/19 *Time: 09:06 Interval history: Patient states he has breakthrough pain while on fentanyl patch. Pain is in his throat area. Oxycodone helps this. He does have some reflux and nausea as well.. Nurses noted residual of 300+ before a.m. feeding. Currently he is receiving 150 cc before and after each tube feeding of about 230 cc of Jevity. Bowels did move yesterday. Patient did sleep some last night. He has a periodic rare cough. This a.m. c oughed up large amount of yellow sputum. Renal function has improved. Blood chemistries are normal Laboratory Tests 03/28/19 03/29/19 01:38 05:38 WBC 19.8 H 14.5 H Hgb 14.3 11.8 L Hct 47.1 38.4 L Plt Count 401 307 Neut % (Auto) 88.8 H 84.6 H Lymph % (Auto) 5.7 L 9.0 L Exam Vital signs and Labs for Last 24 Hours: Temp Pulse Resp BP Pulse Ox 98.1 F 98 H 17 116/77 96 03/29/19 07:54 03/29/19 07:54 03/29/19 07:54 03/29/19 07:54 03/29/19 07:54 Laboratory Results - last 24 hr 03/28/19 13:19: WBC 16.3 H, RBC 4.14 L, Hgb 12.2 L, Hct 41.2 L, MCV 99.6 H, MCH 29.6, MCHC 29.7 L, RDW 17.3, Plt Count 343, MPV 8.3, Neut % (Auto) 84.2 H, Lymph % (Auto) 9.9 L, [place] % (Auto) 4.7, Eos % (Auto) 0.7, Baso % (Auto) 0.5, Neut # (Auto) 13.7 H, Lymph # (Auto) 1.6, [place] # (Auto) 0.8, Eos # (Auto) 0.1, Baso # (Auto) 0.1, Total Counted 100, Neutrophils % (Manual) 83 H, Band Neutrophils % 3.0, Lymphocytes % (Manual) 10, Monocytes % (Manual) 4, Platelet Estimate Normal 03/29/19 05:38: WBC 14.5 H, RBC 4.03 L, Hgb 11.8 L, Hct 38.4 L, MCV 95.3 H, MCH 29.3, MCHC 30.8 L, RDW 17.0, Plt Count 307, MPV 8.5, Neut % (Auto) 84.6 H, Lymph % (Auto) 9.0 L, [place] % (Auto) 4.6, Eos % (Auto) 1.4, Baso % (Auto) 0.4, Neut # (Auto) 12.2 H, Lymph # (Auto) 1.3, [place] # (Auto) 0.7, Eos # (Auto) 0.2, Baso # (Auto) 0.1 03/29/19 05:38: Sodium 136, Potassium 4.7, Chloride 103, Carbon Dioxide 27, Anion Gap 10.7, BUN 37 H, Creatinine 1.72 H D, Estimated Creat Clear 56, Estimated GFR 41 L, Est GFR ( Amer) 49 L D, Glucose 144 H D, Calcium 9.1 I & O for Last 24 hours: Intake & Output 03/26/19 03/27/19 03/28/19 03/29/19 11:59 11:59 11:59 11:59 Intake Total 0 / 0 4510 / 4510 Balance 0 / 0 4510 / 4510 Weight 189 lb 8 oz Radiology Reports for the Last 24 Hours: 03/28/2019 CT of abdomen and pelvis without IMPRESSION: 1. Thickened distal esophagus with paraesophageal adenopathy consistent with a soft Jewel carcinoma. 2. Metastatic disease of the liver. 3. Cirrhosis CT of the chest 03/28/2019 IMPRESSION: 1. Thickening of the distal esophagus as previously described with paraesophageal lymph nodes consistent with esophageal carcinoma. 2. Interval progression metastatic disease with worsening mediastinal and hilar adenopathy and enlarging multiple bilateral pulmonary nodules - Constitutional no acute distress - *Routine HEENT Exam Head: Present: normocephalic, atraumatic - *Routine Respiratory Exam Comments: Bilateral rhonchi. Productive cough of yellow sputum with deep breathing this a.m. with exam. - *Routine Cardiovascular Exam Present: RRR - *Routine Abdominal Exam Present: soft, tenderness (Right upper quadrant), distended Comments: Decreased bowel sounds - *Routine Extremities Exam Absent: edema, calf tenderness - *Routine Neurological Exam Present: alert, oriented X3 Assessment and Plan (1) Esophageal cancer Current visit: Yes Status: Acute Category: Medical Code(s): C15.9 - Malignant neoplasm of esophagus, unspecified (2) Hematemesis Current visit: Yes Status: Acute Category: Medical Code(s): K92.0 - Hematemesis (3) Metastatic cancer Current visit: Yes Status: Acute Category: Medical Code(s): C79.9 - Secondary malignant neoplasm of unspecified site (4) Abnormal CT of liver Current visit: No Status: Acute Category: Medical Code(s): R93.2 - Abnormal findings on diagnostic imaging of liver and biliary tract (5) Abnormal CT scan of lung Current visit: No Status: Acute Category: Medical Code(s): R91.8 - Other nonspecific abnormal finding of lung field (6) Abnormal CT scan, esophagus Current visit: No Status: Acute Category: Medical Code(s): R93.3 - Abnormal findings on diagnostic imaging of other parts of digestive tract (7) Pain management Current visit: Yes Status: Acute Category: Medical Code(s): R52 - Pain, unspecified (8) Renal failure Current visit: Yes Status: Acute Category: Medical Code(s): N19 - Unspecified kidney failure (9) COPD (chronic obstructive pulmonary disease) Current visit: No Status: Chronic Category: Medical Code(s): J44.9 - Chronic obstructive pulmonary disease, unspecified (10) Type 2 diabetes mellitus Current visit: No Status: Chronic Qualifiers: Diabetes mellitus complication status: with circulatory complication Category: Medical Code(s): E11.9 - Type 2 diabetes mellitus without complications - Assessment and plan all Dx Assessment and Plan for all problems:: We will adjust tube feedings and fluid intake according to dietary instruction. Nursing to further educate patient and on tube feedings. We will continue with pain and nausea management. Will decrease Maxide to 1 pill/day. We will add Reglan and PPI.
[2019-03-30 06:20] LABS: Basophils # 0.1 K/mm3 (0-0.2); Basophils % 0.3 % (0.1-2.0); Eosinophils # 0.1 K/mm3 (0.0-0.4); Eosinophils % 0.6 % (0.1-12.0); Hematocrit 39.6 % (42.0-52.0); Lymphocytes # 1.3 K/mm3 (0.7-4.5); Lymphocytes % 7.6 % (10-50); Mean Corpuscular HGB Conc 30.3 g/dL (31.8-35.4); Mean Corpuscular Volume 97.2 fl (80-94); Mean Platelet Volume 8.6 fl (7.4-10.4); Monocytes # 0.8 K/mm3 (0.1-1.0); Monocytes % 4.9 % (1.7-9.3); Neutrophils # 14.8 K/mm3 (1.8-7.8); Neutrophils % 86.7 % (37.0-80.0); Platelet Count 286 K/mm3 (142-424); Red Blood Count 4.07 M/mm3 (4.60-6.20); Red Cell Distribution Width 17.1 % (11.5-17.5); White Blood Count 17.1 K/mm3 (4.8-10.8)
[2019-03-30 06:31] LABS: Anion Gap 13.5 mEq/L (5-15); Calcium 9.4 mg/dL (8.5-10.1)
[2019-03-30 07:52] LABS: Lymphocytes % 7 % (10-50); Monocytes % 4 % (2-9); Neutrophils % 89 % (42-76); RBC Morphology Normal; Total Cells Counted 100
--- NOTE | 2019-03-30 08:21 | Progress Note ---
Internal Medicine - PN: Subj *Date: 03/30/19 *Time: 08:17 Interval history: Patient has had some break through pain. The pain is in his right upper quadrant now. He states his neck does not hurt today. He did sleep some last night. He has required some antinausea medicine. He did have some residual before his last p.m. feeding. He asked that the feeding be held. This morning residuals only 15 cc. He has had liquid/loose stools. He has a periodic productive cough. He is using his incentive spirometer. He is voiding QS. Laboratory Tests 03/30/19 05:55 WBC 17.1 H Hgb 12.0 L Hct 39.6 L Plt Count 286 Neut % (Auto) 86.7 H Lymph % (Auto) 7.6 L White blood cell count has increased this a.m. Patient has not had a fever. Laboratory Tests 03/30/19 05:48 Sodium 137 Potassium 4.5 Chloride 102 Carbon Dioxide 26 BUN 28 H Creatinine 1.46 H Improved renal function Exam Vital signs and Labs for Last 24 Hours: Temp Pulse Resp BP Pulse Ox 97.9 F 94 H 17 139/76 96 03/30/19 04:00 03/30/19 04:00 03/30/19 04:00 03/30/19 04:00 03/30/19 04:00 Laboratory Results - last 24 hr 03/29/19 18:45: Stl Aeromonas (PCR) Not detected, Stl C. cayetanensis PCR Not detected, Stool Rotavirus (PCR) Not detected, Stl Adenov F 40/41 PCR Not detected, Stool Astrovirus (PCR) Not detected, Stool Campylobacter PCR Not detected, Stl C.difficile Tox PCR Not detected, Stool Cryptosporidium PCR Not detected, Stl E.coli Shiga Tox PCR Not detected, Stool E coli O157 PCR Not detected, Stl Enterotoxigenic E PCR Not detected, Stool EPEC (PCR) Not detected, Stool EAEC (PCR) Not detected, Stl E. histolytica PCR Not detected, Stool Giardia Lamblia PCR Not detected, Stool Salmonella PCR Not detected, Stool Sapov irus (PCR) Not detected, Stl P. shigelloides PCR Not detected, Stl Shigella/EIEC PCR Not detected, St Y.enterocolitica PCR Not detected, Stool Vibrio (PCR) Not detected, Stl Vibrio cholerae PCR Not detected, Stl Norovirus GI/GII PCR Not detected 03/30/19 05:48: Sodium 137, Potassium 4.5, Chloride 102, Carbon Dioxide 26, Anion Gap 13.5, BUN 28 H, Creatinine 1.46 H, Estimated Creat Clear 66, Estimated GFR 49 L, Est GFR ( Amer) 60 D, Glucose 178 H, Calcium 9.4 03/30/19 05:55: WBC 17.1 H, RBC 4.07 L, Hgb 12.0 L, Hct 39.6 L, MCV 97.2 H, MCH 29.5, MCHC 30.3 L, RDW 17.1, Plt Count 286, MPV 8.6, Neut % (Auto) 86.7 H, Lymph % (Auto) 7.6 L, [place] % (Auto) 4.9, Eos % (Auto) 0.6, Baso % (Auto) 0.3, Neut # (Auto) 14.8 H, Lymph # (Auto) 1.3, [place] # (Auto) 0.8, Eos # (Auto) 0.1, Baso # (Auto) 0.1, Total Counted 100, Neutrophils % (Manual) 89 H, Lymphocytes % (Manual) 7 L, Monocytes % (Manual) 4, Platelet Estimate Normal, RBC Morphology Normal I & O for Last 24 hours: Intake & Output 03/27/19 03/28/19 03/29/19 03/30/19 11:59 11:59 11:59 11:59 Intake Total 0 / 0 5002 / 5002 1239 / 1239 Output Total 440 / 440 Balance 0 / 0 4562 / 4562 1239 / 1239 Weight 189 lb 8 oz 189 lb 8.009 oz 192 lb 1 oz - Constitutional no acute distress Comments: Appears comfortable - *Routine Respiratory Exam Comments: Bilateral respiratory wheezing anteriorly and posteriorly - *Routine Cardiovascular Exam Present: RRR - *Routine Abdominal Exam Present: soft, tenderness. Absent: distended Comments: G-tube in place; dressing clean and dry. Decreased bowel sounds. Tender in right upper quadrant. - *Routine Extremities Exam Absent: edema, calf tenderness - *Routine Neurological Exam Present: alert, oriented X3 Assessment and Plan (1) Esophageal cancer Current visit: Yes Status: Acute Category: Medical Code(s): C15.9 - Malignant neoplasm of esophagus, unspecified (2) Hematemesis Current visit: Yes Status: Acute Category: Medical Code(s): K92.0 - Hematemesis (3) Metastatic cancer Current visit: Yes Status: Acute Category: Medical Code(s): C79.9 - Secondary malignant neoplasm of unspecified site (4) Abnormal CT of liver Current visit: No Status: Acute Category: Medical Code(s): R93.2 - Abnormal findings on diagnostic imaging of liver and biliary tract (5) Abnormal CT scan of lung Current visit: No Status: Acute Category: Medical Code(s): R91.8 - Other nonspecific abnormal finding of lung field (6) Abnormal CT scan, esophagus Current visit: No Status: Acute Category: Medical Code(s): R93.3 - Abnormal findings on diagnostic imaging of other parts of digestive tract (7) Pain management Current visit: Yes Status: Acute Category: Medical Code(s): R52 - Pain, unspecified (8) Renal failure Current visit: Yes Status: Acute Category: Medical Code(s): N19 - Unspecified kidney failure (9) COPD (chronic obstructive pulmonary disease) Current visit: No Status: Chronic Category: Medical Code(s): J44.9 - Chronic obstructive pulmonary disease, unspecified (10) Type 2 diabetes mellitus Current visit: No Status: Chronic Qualifiers: Diabetes mellitus complication status: with circulatory complication Category: Medical Code(s): E11.9 - Type 2 diabetes mellitus without complications - Assessment and plan all Dx Assessment and Plan for all problems:: Patient states both he and his feel more comfortable with the feeding regime. He feels he is ready to go home if okay with physician. Will order chest x-ray due to increase in white blood cell count and wheezing. Possibly home today
--- NOTE | 2019-03-31 08:44 | Discharge Summary ---
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 He has esophageal obstruction and has a PEG tube in place. Yesterday evening he and his returned from a trip to [place]. Upon arriving at home he vomited about 2 cups of brownish looking blood. He came to the emergency room at [facility] and was admitted. The patient has been evaluated by Dr. Gus Reynaga, window display designer and by Dr. Marquis, oncologist. When Dr. Marquis saw him about a month ago she told him that he had about 6 months to live. He had dreamed of a trip to [place] and has successfully accomplished that. His tube feedings have consisted of 355 matthew per 8 ounces of Jevity, 3 or 4 feedings a day. 6 feedings were too many. Patient has been followed by hospice and they are supposed to get back in contact with them after the trip. The patient has been bothered by constipation. He has had no other times of nausea and vomiting. Hospital Course Hospital Course: The patient's abdomina/pelvic CT showed a thickened distal esophagus with paraesophageal adenopathy consistent with esophageal carcinoma. There was metastasis to the liver. A CT of the chest showed thickening of the distal esophagus consistent with esophageal carcinoma and interval progression of metastatic disease with worsening mediastinal and hilar adenopathy as well as multiple bilateral pulmonary nodules. The patient's H&H was monitored and remained stable. His Jevity was resumed. The patient complained of break through pain on his fentanyl patch and pain in his throat. Oxycodone did help this. His renal function improved. He did have a residual of 300 cc before his a.m. feeding on the am of admission, therefore his tube feedings were adjusted. Nursing further educated the patient and his on his tube feedings. He was continued with pain and nausea management and Reglan and a PPI were ordered as well. His Maxide was decreased to 1 pill daily due to renal insufficiency. On the morning of 03/30/2019, his residual was only 15 cc. The patient and his both felt more comfortable with this feeding regimen and he was anxious to go home. He was having liquid loose stools and his white blood cell count was slightly elevated, therefore diarrhea panel was ordered. It was negative. He did have some wheezing, therefore a chest x-ray was ordered. It showed no infection but progression of pulmonary metastasis. The patient was stable to be discharged home and will continue to follow with hospice. Objective Vital signs: Temp Pulse Resp BP Pulse Ox 98.7 F 80 19 137/86 96 03/30/19 08:00 03/30/19 08:00 03/30/19 08:00 03/30/19 08:00 03/30/19 08:00 Narrative: - Constitutional no acute distress - *Routine HEENT Exam Head: Present: normocephalic Eye: Present: PERRL ENT: Present: mucous membranes dry - *Routine Neck Exam Present: supple - Routine Chest/Breast/Axilla Exam Comments: Chest is abnormal due to previous sternotomy with subsequent infection and removal of sternum with thin plastic repair. Right pectoral muscle is smaller due to the repair. With inspiration there can be popping due to the sternal defect. - *Routine Respiratory Exam Present: decreased breath sounds. Absent: respiratory distress, wheezes - *Routine Cardiovascular Exam Present: RRR (Occasional ectopics, paced rhythm.) - *Routine Abdominal Exam Present: soft, ostomy (PEG in place with some brownish drainage around it. Tube clear.). Absent: tenderness - *Routine Rectal Exam Patient deferred: visual exam Comments: Rectal exam was not performed, there is a 1-2 sacral decubitus developing. - *Routine Extremities Exam Absent: edema (Some muscle wasting.) - Routine Back/Spine/Pelvis Exam Back/Spine: Present: kyphosis - *Routine Skin Exam Present: lesions (Sacral lesion as described above.) - *Routine Neurological Exam Present: alert, oriented X3 DS: Diagnosis - Discharge Diagnosis (1) Esophageal cancer Status: Acute (2) Hematemesis Status: Acute (3) Metastatic cancer Status: Acute (4) Abnormal CT of liver Status: Acute (5) Abnormal CT scan of lung Status: Acute (6) Abnormal CT scan, esophagus Status: Acute (7) Pain management Status: Acute (8) Renal failure Status: Acute (9) COPD (chronic obstructive pulmonary disease) Status: Chronic (10) Type 2 diabetes mellitus Status: Chronic Discharge Plan - Patient Discharge Instructions ACTIVITY: Continue current activity DIET: continue same diet (PEG) Patient Instructions: Esophageal Cancer, DI for Esophageal Cancer, Gastrointestinal Bleeding - Follow up Plan Follow up with: Margy Ang MD [Primary Care Provider] - 04/06/19 Disposition: Hospice - Home Home Medications: Home Medications Medication Instructions Recorded Confirmed Type triamterene 75 1 tab PO DAILY 08/18/17 03/28/19 History mg-hydrochlorothiazide 50 mg tablet Gabapentin [Gabapentin 300mg Cap] 600 mg PO BID 09/04/18 03/28/19 History Sennosides 8.6 mg PO HS 03/11/19 03/28/19 History Neomycin/Polymyxin B Sulf/Hc 3 drops OT TID 03/12/19 03/28/19 History [Llkhkwjb-Iscxgntxa-CU Otic Susp 10mL] Polyethylene Glycol 3350 [Gavilax] 17 gm PO DAILYP PRN 03/12/19 03/28/19 History Ondansetron HCl [Zofran 4mg/5mL 4 mg PO TID PRN #30 udc 03/13/19 03/28/19 Rx oral solution UDC] Oxycodone HCl [Oxycodone (IR) 10mg 20 mg PO Q4H PRN 03/28/19 03/28/19 History Tab] Promethazine HCl [Phenergan 6.25 mg PO TID PRN 03/28/19 03/28/19 History 12.5mg/10mL UDC] Hyoscyamine Sulfate [Levsin 0.125 mg SL Q6H #60 tab.rapdis 03/30/19 Rx 0.125mg tablet] Metoclopramide HCl [Reglan 5 mg FEED TUBE TID #100 solution 03/30/19 Rx 10mg/10mL soln UDC] fentaNYL [fentaNYL 100mcg Patch] 100 mcg TD Q72H #10 patch.td72 03/30/19 Rx Prescriptions/Medication Reconciliation: New Hyoscyamine Sulfate [Levsin 0.125mg tablet] 0.125 mg SL Q6H #60 tab.rapdis fentaNYL [fentaNYL 100mcg Patch] 100 mcg TD Q72H #10 patch.td72 Metoclopramide HCl [Reglan 10mg/10mL soln UDC] 5 mg FEED TUBE TID #100 solution Continued triamterene 75 mg-hydrochlorothiazide 50 mg tablet 1 tab PO DAILY Sennosides 8.6 mg PO HS Neomycin/Polymyxin B Sulf/Hc [Wkghksha-Xxqwgjjpu-RT Otic Susp 10mL] 3 drops OT TID Polyethylene Glycol 3350 [Gavilax] 17 gm PO DAILYP PRN PRN Reason: Constipation Ondansetron HCl [Zofran 4mg/5mL oral solution UDC] 4 mg PO TID PRN #30 udc PRN Reason: Nausea Oxycodone HCl [Oxycodone (IR) 10mg Tab] 20 mg PO Q4H PRN PRN Reason: CHRONIC PAIN Gabapentin [Gabapentin 300mg Cap] 600 mg PO BID Promethazine HCl [Phenergan 12.5mg/10mL UDC] 6.25 mg PO TID PRN PRN Reason: NAUSEA/VOMITING Discontinued fentaNYL [fentaNYL 75mcg Patch] 75 mcg TD Q72H - Problem Reconciliation Problems Reviewed?: Yes
== END 2019-03-30 15:36 | disposition hospice, home (50) ==
LOC: 2ND 01:27 → ER 01:27 → 2ND 05:38
PROVIDERS: ADMIT Family Medicine; ATTEND Family Medicine
DX: G89.3 Neoplasm related pain (acute) (chronic); E11.9 Type 2 diabetes mellitus without complications; Z95.1 Presence of aortocoronary bypass graft; C78.7 Secondary malignant neoplasm of liver and intrahepatic bile duct; C78.00 Secondary malignant neoplasm of unspecified lung; I25.10 Atherosclerotic heart disease of native coronary artery without angina pectoris; Z87.891 Personal history of nicotine dependence; K92.0 Hematemesis; L89.152 Pressure ulcer of sacral region, stage 2; J44.9 Chronic obstructive pulmonary disease, unspecified; R04.2 Hemoptysis; Z95.0 Presence of cardiac pacemaker; C15.9 Malignant neoplasm of esophagus, unspecified; I48.91 Unspecified atrial fibrillation
CPT/HCPCS: 36415; 71020; 71046; 71250; 74176; 80048; 80053; 82150; 83690; 85007; 85025; 87507; 96365; 96375; 99284; G0378; J2405